=== PATIENT | female | born 1965 | race Caucasian/White ===

== ENCOUNTER 2023-11-03 09:04 | Outpatient (AMB) | payer BC, SELFPAY ==
--- NOTE | 2023-11-03 09:13 | MHC.PC.OV ---
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: No Accompanied by: Self / Same As Patient Allergies No Known Allergies Allergy (Verified 11/03/23 09:22) Tobacco use date assessed: 11/03/23 Dental Screening Dental Screen Date: 11/03/23 Did you have a dental visit in the last 12 months?: No Did you have a dental problem in the last 6 months where you did not have access to dental care?: No Was dental information given to patient?: Yes HPI HPI Comments History of Present Illness Details New patient Prior PCP:?[facility], [place], [place] Last office visit/CPE: About 5 months ago Acute issue(s): Anxiety -She is on propranolol 10 mg twice daily Asthma -She is on montelukast 10 mg at bedtime and an albuterol inhaler Migraines -History of taking Fioricet with codeine as needed. No current medication. Reports constant headache for the past 3 weeks. No relief with otc remedies. She recently missed 3 days of work d/t headache. She is currently experiencing right-sided headache with nausea. No visual disturbances. She experiences vomiting with severe headaches Vitamin D deficiency -She is on Vitamin D3 125 mcg daily Hypothyroidism r/t thyroidectomy/thyroid cancer -She is on Synthroid 125 mcg daily Arthritis (elbows, knees, ankles) -She she been taking Tylenol arthrits and diclofenac cream as needed Chronic low back pain with left-sided sciatica -Reports history of bulging disc of the lumbar spine. She takes OTC medications as needed controlled symptoms. She reports h/o hypercholesterolemia with last LDL of 400 about 5 months ago. She has been exercising about an hour daily and maintaining a healthy diet, avoiding diary and red meat. No current medications PMHx: Anxiety, asthma, migraines, vitamin-D deficiency, hypothyroidism, arthritis (elbows, knees, ankles), hypercholesterolemia, chronic low back pain with left-sided sciatica SurgHx: Hysterectomy, cervical disc replacement, adenoidectomy, sinus surgery, thyroidectomy FHx: Mom: HTN, heart diseases, pace maker, thyroid disease, CHF. Dad: colon polyps. MGM: skin cancer, thyroid disease, HTN SocHx: Former cigarette smoker (smoked 2 cigarettes daily x 4 years, quit 3.5 years ago).. Drinks alcohol occasionally. Edible cannabis occasionally PFSH Medical History (Updated 11/03/23 @ 10:14 by Bernard Ren CNP) Thyroid cancer delivery delivered Asthma Arthritis Joint pain Migraines Surgical History (Updated 11/03/23 @ 09:31 by JESSICA Shane) History of hysterectomy S/P cervical disc replacement H/O adenoidectomy H/O sinus surgery Family History (Updated 11/03/23 @ 09:32 by JESSICA Shane) Other Cancer of kidney Colon polyps Heart disease Hypertension Thyroid disorder Social History Housing: House Patient Tobacco Use Status: Former Tobacco user e-Cigarette/Vaping Use: Never Used service: No Current occupational status: employed 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 1. Little interest or pleasure in doing things: not at all 2. Feeling down, depressed, or hopeless: not at all 3. Trouble falling or staying asleep, or sleeping too much: nearly every day 4. Feeling tired or having little energy: nearly every day 5. Poor appetite or overeating: several days 6. Feeling bad about yourself - or that you are a failure or have let yourself or your family down: several days 7. Trouble concentrating on things, such as reading the newspaper or watching television: not at all 8. Moving or speaking so slowly that other people could have noticed. Or the opposite - being so fidgety or restless that you have been moving around a lot more than usual: not at all 9. Thoughts that you would be better off or of hurting yourself in some way: not at all Total score: 8 Depression Screening Interpretation: Positive (Denies h/o depression) Depression Screening Done: Yes 43941 - PHQ-9 Billing: Yes Source: Developed by Drs. Johnny Golden, Sherlyn Luis, Marc Lopez and colleagues, with an educational dustin from [employer]. Thrive Questionnaire Date Thrive assessed: 11/03/23 I am a: Patient What is your living situation today?: I have a steady place to live Within the past 12 months, did the food you bought not last and you didn't have the money to get more?: Never true Within the past 12 months, did you worry whether your food would run out before you got money to buy more?: Never true Do you have trouble paying for medicines?: No Do you have trouble getting transportation to medical appointments?: No Do you have trouble paying your heating and electricity bill?: No Do you have trouble taking care of your child, family member or friend?: No Do you have trouble with day-to-day activities such as bathing, preparing meals, shopping, managing finances, etc.?: No Are you currently unemployed and looking for a job?: No Are you interested in more education?: No Please select the resources that you would like help with: None Currently or been in a relationship where the following occur: no concerns reported THRIVE Score: 0 AUDIT C Alcohol Use Questionnaire (AUDIT-C) 1. How often do you have a drink containing alcohol?: Monthly or less 2. How many drinks containing alcohol do you have on a typical day when you are drinking?: 1 or 2 3. How often do you have six or more drinks on one occasion?: Never Total Score: 1 MARE-7 AMB Questionnaire MARE-7 Date MARE - 7 assessed: 11/03/23 Feeling nervous, anxious, or on edge: 1 = Several days Not being able to stop or control worryin = Several days Worrying too much about different things: 2 = More than half the days Trouble relaxin = More than half the days Being so restless that it is hard to sit still: 1 = Several days Becoming easily annoyed or irritable: 0 = Not at all Feeling afraid as if something awful might happen: 1 = Several days Total MARE-7 score (0-4 normal; 5-9 mild; 10-14 moderate; 15-21 severe): 8 Source: Developed by Drs. Johnny Golden, Sherlyn Luis, Marc Lopez and colleagues, with an educational dustin from [employer]. MARE-7 Assessment Billing MARE-7 Assessment Tool: MARE-7 Assessment 08491 ACT Questionnaire In the past 4 weeks, how much of the time did your asthma keep you from getting as much done at work, school or at home?: Some of the time During the past 4 weeks, how often have you had shortness of breath?: 3-6 times a week During the past 4 weeks, how often did your asthma symptoms wake you up at night or earlier than usual in the morning?: 4 or more nights a week During the past 4 weeks, how often have you had to use your rescue inhaler or nebulizer medication?: 2-3 times a week How would you rate your asthma control during the past 4 weeks?: Well controlled ACT Interpretation: Positive Score: 14 Review of Systems Const Details: Const Denies chills, Denies fatigue, Denies fever(s), Denies headache(s) and Denies weakness ENT Denies dizziness and Reports headache(s) Card Denies chest pain, Denies lightheadedness, Denies dyspnea and Denies other (Palpitations) Resp Denies cough, Denies dyspnea, Denies wheezing and Denies other ( shortness of breath) GI Denies abdominal pain, Denies melena, Denies hematochezia, Denies change in bowel habits, Denies dyspepsia and Denies nausea Denies hematuria and Denies dysuria Musc Denies abnormal gait, Denies myalgias, Reports arthralgias, Denies numbness and Denies tingling Skin/Breast Denies rash, Denies unusual bruising and Denies wounds Neuro Denies abnormal gait, Denies dizziness, Denies headache(s), Denies memory loss, Denies numbness, Denies Sensory deficit (Neuro), Denies tingling and Denies weakness Psych Reports anxiety, Denies depression, Denies memory loss Endo Denies cold intolerance, Denies fatigue, Denies heat intolerance, Denies polydipsia and Denies polyuria Aller/Immun Denies wheezing Physical exam (Primary Care) Vital Signs: Last Vital Signs Temp 97.7 F 11/03/23 09:14 Pulse 78 11/03/23 09:14 Resp 14 11/03/23 09:14 BP 154/88 H 11/03/23 09:14 Pulse Ox 99 11/03/23 09:14 Oxygen Delivery Method Room Air 11/03/23 09:14 BMI result Body Mass Index 29.6 Depression Screening Interpretation: Positive (Denies h/o depression) Currently or been in a relationship where the following occur: no concerns reported Const Other: General: no acute distress and well developed Nutritional Appearance: well nourished Orientation/consciousness: patient oriented x3 [facility] Head: Yes normocephalic and Yes atraumatic Eyes General: appearance normal, both eyes and all related structures Pupils: Equal, round and reactive pupils present EOM: EOMs intact bilaterally Resp Effort & Inspection: normal respiratory effort Auscultation: clear to auscultation bilaterally Cardio Rate: regular rate Rhythm: regular rhythm Heart sounds: S1 normal heart sound present, S2 normal heart sound present, no gallops, no murmurs and no rubs GI Palpation (GI): No Abdominal aortic bruit present, Soft to palpation, nontender, No hepatosplenomegaly present and No Rebound tenderness present Auscultation: normal bowel sounds General: Yes no CVA tenderness Back/Spine/Pelvis Back: no CVA tenderness Cervical Spine: cervical ROM normal and No Cervical spine tenderness Thoracic/Lumbar Spine: thoraco-lumbar ROM normal, No pain with thoraco-lumbar ROM, No thoracic spinal tenderness mild lumbar spinal tenderness Extrem General: Yes normal to inspection, No edema and No calf tenderness Skin General: warm and dry. Normal skin color. Normal skin turgor Lesions: no lesions Rashes: no rashes Trauma: no lacerations or abrasions Wounds: no wounds Nails: normal Neuro General: patient oriented x3, gait normal and no focal neuro deficit Cranial nerves: Yes Equal, round and reactive pupils present Cognition (Neuro): normal cognition Gait exam (Neuro): Normal gait present Sensory Exam: No Sensory deficit (Neuro) Psych Appearance: grossly normal Affect: normal affect Attitude: cooperative Thought process: Normal thought process present Assessment and Plan Assessment & Plan (1) Asthma: Code(s): J45.909 - Unspecified asthma, uncomplicated Plan: She notes that she ran out of her albuterol inhaler and has not been using in a long time ACT score is 14, indicates poorly control asthma Albuterol inhaler refill sent to her pharmacy. Advised to take as prescribed. Instructed on the risks, benefits, and potential adverse reactions of the medication Follow-up with new or worsening symptoms Verbalized understanding and agreed with the treatment plan (2) Migraines: Code(s): G43.909 - Migraine, unspecified, not intractable, without status migrainosus Plan: Constant headache for the past 3 weeks. No relief with otc remedies. She recently missed 3 days of work d/t headache. She is currently experiencing right-sided headache with nausea. No visual disturbances. She experiences vomiting with severe headaches. She reports history of elevated blood pressure readings with severe migraines. Sumatriptan ordered to target migraines. Zofran ordered for nausea and vomiting. Advised to take as prescribed. Instructed on the risks, benefits, and potential adverse reactions of the medications. Follow-up in 2 weeks or sooner with worsening or new symptoms. Verbalized understanding and agreed with the treatment plan. (3) Elevated blood pressure reading without diagnosis of hypertension: Code(s): R03.0 - Elevated blood-pressure reading, without diagnosis of hypertension Plan: Resting blood pressure is 154/88, above goal of less than 140/90. Heart rate is 78 Reports history of elevated blood pressure readings with severe migraines. Denies history of hypertension Likely attributed to current migraine symptoms. Will treat migraines with Fioricet and have patient return in 2 weeks. Will monitor blood pressure closely and possibly treat if migraines resolved and blood pressure still elevated Low-sodium diet encouraged Follow-up in 2 weeks or sooner with worsening or new symptoms Verbalized understanding and agreed with the treatment plan (4) Hypothyroidism: Code(s): E03.9 - Hypothyroidism, unspecified Plan: History of thyroidectomy/thyroid cancer On Synthroid 125 mcg daily No acute symptoms Continue current treatment regimen Will check TSH/T4 and make changes as needed Verbalized understanding and agreed with the treatment plan (5) Hypercholesterolemia: Code(s): E78.00 - Pure hypercholesterolemia, unspecified Plan: History hypercholesterolemia with last LDL of 400 about 5 months ago. She has been exercising about an hour daily and maintaining a healthy diet, avoiding diary and red meat instead of taking medications. No current medications Will check lipid panel and make changes as needed Advised to limit foods high in saturated fat and avoid foods high in trans fat Routine exercise encouraged Verbalized understanding and agreed with the plan (6) Arthritis: Code(s): M19.90 - Unspecified osteoarthritis, unspecified site Plan: Chronic arthritis to elbows, knees, ankles. She takes Tylenol Arthritis and diclofenac cream as needed with controlled symptoms No acute symptoms Continue current treatment regimen Follow-up with symptoms or concerns Verbalized understanding and agreed with the plan (7) Vitamin D deficiency: Code(s): E55.9 - Vitamin D deficiency, unspecified Plan: Continue to take cholecalciferol 125 mcg daily Will check vitamin-D level and make changes as needed Verbalized understanding and agreed with the plan (8) Chronic low back pain with left-sided sciatica: Code(s): M54.42 - Lumbago with sciatica, left side; G89.29 - Other chronic pain Plan: History of bulging discs of the lumbar spine. She takes OTC medications as needed Mild lumbar spine tenderness to palpation No acute symptoms Continue current treatment regimen Follow-up with symptoms or concerns Verbalized understanding and agreed with the plan (9) Anxiety: Code(s): F41.9 - Anxiety disorder, unspecified Plan: PHQ-9 and MARE-7 scores revealed moderate depression and anxiety Continue to take propranolol as prescribed Routine exercise encouraged Return with worsening or new symptoms Verbalized understanding and agreed with the treatment plan (10) Laboratory tests ordered as part of a complete physical exam (CPE): Code(s): Z00.00 - Encounter for general adult medical examination without abnormal findings Plan: Fasting labs ordered in preparation of a complete physical exam. Advised to fast for at least 10 hours before getting labs drawn. May drink water Verbalized understanding and agreed with treatment plan. Orders: Orders Complete Blood Count Auto Diff Today Z00.00 - Encounter for general adult medical examination without abnormal findings Comprehensive [place]. Panel Fast Today Z00.00 - Encounter for general adult medical examination without abnormal findings Lipid Panel Today Z00.00 - Encounter for general adult medical examination without abnormal findings TSH reflex Free T4 Today Z00.00 - Encounter for general adult medical examination without abnormal findings UA CC w/rflx Micro + Cult Today Z00.00 - Encounter for general adult medical examination without abnormal findings Microalbumin, Random (w Creat) Today Z00.00 - Encounter for general adult medical examination without abnormal findings Vitamin D 25-OH Total Today E55.9 - Vitamin D deficiency, unspecified Medications: New sumatriptan succinate take 1 tab at onset of headache; if no relief may repeat 1 tab after at least 2 hrs; max = 4 tabs/24 hr PO 20 tabs 0RF ondansetron 4 mg PO Q8H PRN 10 tabs 0RF nausea and vomiting albuterol sulfate 90 mcg/actuation (Proventil HFA) 2 puffs inhalation Q6H PRN 8.5 grams 3RF shortness of breath or wheezing Coding Level of Care Code New Pt Level 4 (85457) Complex EM visit Add On G2211 Diagnoses Asthma J45.909 Migraines G43.909 Elevated blood pressure reading without diagnosis of hypertension R03.0 Hypothyroidism E03.9 Hypercholesterolemia E78.00 Arthritis M19.90 Vitamin D deficiency E55.9 Chronic low back pain with left-sided sciatica M54.42; G89.29 Anxiety F41.9 Laboratory tests ordered as part of a complete physical exam (CPE) Z00.00 Additional Codes MARE-7 Assessment Billing - MARE-7 Assessment Tool: MARE-7 Assessment 06697 ([id number])
[2023-11-03 09:14] VITALS: BP 154/88; PULSE 78; RESP 14; TEMP 36.5; O2SAT 99; BMI 29.6
== END 2023-11-03 10:13 | disposition home or self-care (01) ==
PROVIDERS: Visit Provider Nurse Practitioner Family
DX: J45.909 Unspecified asthma, uncomplicated (principal); R03.0 Elevated blood-pressure reading, without diagnosis of hypertension; G43.909 Migraine, unspecified, not intractable, without status migrainosus; F41.9 Anxiety disorder, unspecified; E03.9 Hypothyroidism, unspecified; E78.00 Pure hypercholesterolemia, unspecified; M19.90 Unspecified osteoarthritis, unspecified site; E55.9 Vitamin D deficiency, unspecified; M54.42 Lumbago with sciatica, left side; G89.29 Other chronic pain
CPT/HCPCS: 96127; 99204

== ENCOUNTER 2023-11-24 11:28 | Outpatient (AMB) | payer BC, SELFPAY ==
--- NOTE | 2023-11-24 11:41 | A.OFFPC_ITS ---
Vital Signs 11/24/23 11:48 11/24/23 12:03 Weight 160 lb 8 oz BP 146/78 H 144/90 H Blood Pressure Location Rt brachial Lt brachial Position Sitting Sitting Respiration 16 Pulse 85 Pulse Source Pulse Oximeter Temp 97.5 F Temp Source Temporal Artery Scan Pulse Oximetry (%) 97 Oxygen Delivery Method Room Air Intake Visit Reasons: 2 wks elevated BP, migraines Intake Note: patient here for follow up on blood pressure. 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 Is last menstrual period known: No Post menopausal: No Patient : No Allergies No Known Allergies Allergy (Verified 11/24/23 12:00) Medication List - Last Reconciled 11/24/23 by Bernadr Ren CNP albuterol sulfate 90 mcg/actuation (Proventil HFA) 2 puffs inhalation Q6H PRN cholecalciferol (vitamin D3) 125 mcg PO DAILY cod liver oil 1 cap PO DAILY epinephrine (EpiPen) 0.3 mg IM Q4H PRN levothyroxine (Synthroid) 125 mcg PO DAILY montelukast 10 mg PO BEDTIME ondansetron 4 mg PO Q8H PRN propranolol 10 mg PO BID sumatriptan succinate take 1 tab at onset of headache; if no relief may repeat 1 tab after at least 2 hrs; max = 4 tabs/24 hr PO Tobacco use date assessed: 11/03/23 Dental Screening Dental Screen Date: 11/03/23 HPI HPI Comments History of Present Illness Details 58-year-old female presents for elevated blood pressure and migraines She admits to taking her medications as prescribed without adverse reactions She notes that she continues to experience headaches daily for the past 5 weeks. She reports associated dizziness, nausea, and photophobia, and photophobia. Sumatriptan has been improving her symptoms. She was followed by Neurology She notes that she checks her blood pressure daily average between 116-123/70-80. She reports history of elevated blood pressure readings during a medical appointment She notes that she is allergic to bee and several environmental allergens [facility] Medical History (Updated 11/24/23 @ 12:15 by Bernard Ren CNP) Thyroid cancer delivery delivered Asthma Arthritis Joint pain Migraines Surgical History (Updated 11/03/23 @ 09:31 by JESSICA Shane) History of hysterectomy S/P cervical disc replacement H/O adenoidectomy H/O sinus surgery Family History (Updated 11/03/23 @ 09:32 by Lay Gordillo [facility]) Other Cancer of kidney Colon polyps Heart disease Hypertension Thyroid disorder Social History Housing: House Patient Tobacco Use Status: Former Tobacco user e-Cigarette/Vaping Use: Never Used service: No Current occupational status: employed 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 1. Little interest or pleasure in doing things: not at all 2. Feeling down, depressed, or hopeless: not at all 3. Trouble falling or staying asleep, or sleeping too much: nearly every day 4. Feeling tired or having little energy: nearly every day 5. Poor appetite or overeating: not at all 6. Feeling bad about yourself - or that you are a failure or have let yourself or your family down: not at all 7. Trouble concentrating on things, such as reading the newspaper or watching television: not at all 8. Moving or speaking so slowly that other people could have noticed. Or the opposite - being so fidgety or restless that you have been moving around a lot more than usual: not at all 9. Thoughts that you would be better off or of hurting yourself in some way: not at all Total score: 6 Depression Screening Done: Yes 82722 - PHQ-9 Billing: Yes Source: Developed by Drs. Johnny Golden, Sherlyn Luis, Marc Lopez and colleagues, with an educational dustin from [employer]. Thrive Questionnaire Date Thrive assessed: 11/03/23 AUDIT C Alcohol Use Questionnaire (AUDIT-C) 1. How often do you have a drink containing alcohol?: Monthly or less 2. How many drinks containing alcohol do you have on a typical day when you are drinking?: 1 or 2 3. How often do you have six or more drinks on one occasion?: Never Total Score: 1 MARE-7 AMB Questionnaire MARE-7 Date MARE - 7 assessed: 11/24/23 Feeling nervous, anxious, or on edge: 2 = More than half the days Not being able to stop or control worryin = Not at all Worrying too much about different things: 1 = Several days Trouble relaxin = Not at all Being so restless that it is hard to sit still: 1 = Several days Becoming easily annoyed or irritable: 0 = Not at all Feeling afraid as if something awful might happen: 0 = Not at all Total MARE-7 score (0-4 normal; 5-9 mild; 10-14 moderate; 15-21 severe): 4 Source: Developed by Drs. Johnny Golden, Sherlyn Luis, Marc Lopez and colleagues, with an educational dustin from [employer]. MARE-7 Assessment Billing MARE-7 Assessment Tool: MARE-7 Assessment 70497 ACT Questionnaire In the past 4 weeks, how much of the time did your asthma keep you from getting as much done at work, school or at home?: Most of the time During the past 4 weeks, how often have you had shortness of breath?: More than once a day During the past 4 weeks, how often did your asthma symptoms wake you up at night or earlier than usual in the morning?: 2-3 nights a week During the past 4 weeks, how often have you had to use your rescue inhaler or nebulizer medication?: More than 3 times per day How would you rate your asthma control during the past 4 weeks?: Somewhat controlled Score: 9 Review of Systems Const Details: Const Denies chills, Denies fatigue, Denies fever(s), Denies headache(s) and Denies weakness ENT Denies dizziness and Denies headache(s) Card Denies chest pain, Denies lightheadedness, Denies dyspnea and Denies other (Palpitations) Resp Denies cough, Denies dyspnea, Denies wheezing and Denies other ( shortness of breath) GI Denies abdominal pain, Denies melena, Denies hematochezia, Denies change in bowel habits, Denies dyspepsia and Denies nausea Denies hematuria and Denies dysuria Musc Denies abnormal gait, Denies myalgias, Denies arthralgias, Denies numbness and Denies tingling Skin/Breast Denies rash, Denies unusual bruising and Denies wounds Neuro Denies abnormal gait, Denies dizziness, Denies headache(s), Denies memory loss, Denies numbness, Denies Sensory deficit (Neuro), Denies tingling and Denies weakness Psych Denies anxiety, Denies depression, Denies memory loss Endo Denies cold intolerance, Denies fatigue, Denies heat intolerance, Denies polydipsia and Denies polyuria Aller/Immun Denies wheezing Physical exam (Primary Care) Vital Signs: Last Vital Signs Temp 97.5 F 11/24/23 11:48 Pulse 85 11/24/23 11:48 Resp 16 11/24/23 11:48 BP 146/78 H 11/24/23 11:48 Pulse Ox 97 11/24/23 11:48 Oxygen Delivery Method Room Air 11/24/23 11:48 Tobacco/Smoking Status: Tobacco use Status Tobacco use date assessed 11/03/23 11/24/23 11:43 Patient Tobacco Use Status Former Tobacco user 11/24/23 11:43 Tobacco use type 11/03/23 10:11 e-Cigarette/Vaping Use Never Used 11/24/23 11:43 Thrive Assessment: Date of Thrive Assessment Date Thrive assessed 11/03/23 11/24/23 11:43 Const Other: General: no acute distress and well developed Nutritional Appearance: well nourished Orientation/consciousness: patient oriented x3 HENMT Head: Yes normocephalic and Yes atraumatic Eyes General: appearance normal, both eyes and all related structures Pupils: Equal, round and reactive pupils present EOM: EOMs intact bilaterally Resp Effort & Inspection: normal respiratory effort Auscultation: clear to auscultation bilaterally Cardio Rate: regular rate Rhythm: regular rhythm Heart sounds: S1 normal heart sound present, S2 normal heart sound present, no gallops, no murmurs and no rubs GI Palpation (GI): No Abdominal aortic bruit present, Soft to palpation, nontender, No hepatosplenomegaly present and No Rebound tenderness present Auscultation: normal bowel sounds General: Yes no CVA tenderness Back/Spine/Pelvis Back: no CVA tenderness Cervical Spine: cervical ROM normal and No Cervical spine tenderness Thoracic/Lumbar Spine: thoraco-lumbar ROM normal, No pain with thoraco-lumbar ROM, No thoracic spinal tenderness and No lumbar spinal tenderness Extrem General: Yes normal to inspection, No edema and No calf tenderness Skin General: warm and dry. Normal skin color. Normal skin turgor Neuro General: patient oriented x3, gait normal and no focal neuro deficit Cranial nerves: Yes Equal, round and reactive pupils present Cognition (Neuro): normal cognition Gait exam (Neuro): Normal gait present Sensory Exam: No Sensory deficit (Neuro) Psych Appearance: grossly normal Affect: normal affect Attitude: cooperative Thought process: Normal thought process present Assessment and Plan Assessment & Plan (1) Migraines: Code(s): G43.909 - Migraine, unspecified, not intractable, without status migrainosus Plan: She continues to experience headaches daily for the past 5 weeks. She notesd associated dizziness, nausea, and photophobia, and photophobia. Sumatriptan has been improving her symptoms Continue to take sumatriptan as prescribed Will start magnesium oxide 400 mg daily and riboflavin 400 mg daily Referred to [facility] Advised to return in 1 month for an extended physical exam or sooner with worsening or new symptoms Verbalized understanding and agreed with the treatment plan (2) Elevated blood pressure reading without diagnosis of hypertension: Code(s): R03.0 - Elevated blood-pressure reading, without diagnosis of hypertension Plan: Resting blood pressure is 144/90, above goal of less than 140/90 She notes controlled home blood pressure readings, between 116-123/70-80 She has history of elevated blood pressure readings during medical appointments Encouraged to continue to check her blood pressure daily, record readings, and bring to next appointment. Advised to immediately report blood pressure consistently above 140/90 Verbalized understanding and agreed with the treatment plan (3) Environmental allergies: Code(s): Z91.09 - Other allergy status, other than to drugs and biological substances Plan: Allergy to bee and several environmental allergens EpiPen ordered. 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 Follow-up with symptoms or concerns Verbalized understanding and agreed with the plan Orders: Referrals Neurology Referral G43.909 - Migraine, unspecified, not intractable, without status migrainosus Allergy & Immunology Referral Z91.09 - Other allergy status, other than to drugs and biological substances Medications: New epinephrine (EpiPen 2-Nnamdi) 0.3 mg (0.3 mL) IM Q4H PRN 2 ea 0RF anaphylaxis riboflavin (vitamin B2) 400 mg PO DAILY 30 days 30 tabs 3RF magnesium oxide 400 mg PO DAILY 30 days 30 tabs 3RF Coding Level of Care Code Est Pt Level 4 (89132) Complex EM visit Add On G2211 Diagnoses Migraines G43.909 Elevated blood pressure reading without diagnosis of hypertension R03.0 Environmental allergies Z91.09 Additional Codes MARE-7 Assessment Billing - MARE-7 Assessment Tool: MARE-7 Assessment [id number] ([id number])
[2023-11-24 11:48] VITALS: BP 146/78; PULSE 85; RESP 16; TEMP 36.4; O2SAT 97
[2023-11-24 12:03] VITALS: BP 144/90
== END 2023-11-24 13:07 | disposition home or self-care (01) ==
PROVIDERS: Visit Provider Nurse Practitioner Family
DX: G43.909 Migraine, unspecified, not intractable, without status migrainosus (principal); R03.0 Elevated blood-pressure reading, without diagnosis of hypertension; Z91.09 Other allergy status, other than to drugs and biological substances
CPT/HCPCS: 99214

== ENCOUNTER 2024-04-27 10:03 | Outpatient (REF) | payer BC, SELFPAY ==
[2024-04-27 15:01] LABS: Influenza A PCR NEGATIVE (Negative); Influenza B PCR NEGATIVE (Negative); Resp Syncy Virus RNA Qual PCR NEGATIVE (Negative); SARS COV2 PCR INHOUSE NEGATIVE (Negative)
== END 2024-04-27 10:04 | disposition home or self-care (01) ==
LOC: HO.LAB 10:03
PROVIDERS: PCP Nurse Practitioner Family; Visit Provider Nurse Practitioner Family
DX: Z00.01 Encounter for general adult medical examination with abnormal findings (principal); J06.9 Acute upper respiratory infection, unspecified; R19.8 Other specified symptoms and signs involving the digestive system and abdomen; G47.00 Insomnia, unspecified; M19.072 Primary osteoarthritis, left ankle and foot; M19.071 Primary osteoarthritis, right ankle and foot
CPT/HCPCS: 0241U; 96127; 96160

== ENCOUNTER 2024-04-27 10:03 | Outpatient (AMB) | payer BC, SELFPAY ==
--- NOTE | 2024-04-27 10:06 | MHC.PC.OV ---
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 Required: No Is last menstrual period known: No Post menopausal: No Patient : No Allergies No Known Allergies Allergy (Verified 04/27/24 10:21) Medication List - Last Reconciled 04/27/24 by Bernard Ren CNP albuterol sulfate 90 mcg/actuation (Proventil HFA) 2 puffs inhalation Q6H PRN epinephrine (EpiPen 2-Nnamdi) 0.3 mg (0.3 mL) IM Q4H PRN epinephrine (EpiPen) 0.3 mg IM Q4H PRN levothyroxine (Synthroid) 125 mcg PO DAILY magnesium oxide 400 mg PO DAILY 30 days montelukast 10 mg PO BEDTIME ondansetron 4 mg PO Q8H PRN propranolol 10 mg PO BID riboflavin (vitamin B2) 400 mg PO DAILY 30 days sumatriptan succinate take 1 tab at onset of headache; if no relief may repeat 1 tab after at least 2 hrs; max = 4 tabs/24 hr PO Tobacco use date assessed: 04/27/24 Dental Screening Dental Screen Date: 04/27/24 Did you have a dental visit in the last 12 months?: No Did you have a dental problem in the last 6 months where you did not have access to dental care?: No Was dental information given to patient?: Patient has dentist HPI HPI Comments History of Present Illness Details 58-year-old female presents for an extended physical exam. Acute issue(s) - Cold symptoms for the past 3 days. Associated head aches, watery eyes, and runny nose - Reports episodes of bloating, constipation, straining with defecation, diarrhea, abdominal pain; sometimes no bm x 1 months; ongoing x 2-3 years. Otc regimen, including laxative and fiber have not been effective. Past Medical History - Anxiety - Asthma - Migraines - Vitamin-D deficiency - Hypothyroidism - Arthritis (elbows, knees, ankles) - Hypercholesterolemia - Chronic low back pain with left-sided sciatica Health maintenance - Last eye exam was 2 years ago. Referred to Ophthalmology - Last pap smear test was 4 years ago. 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 Referred [place] [facility] [place]ology - Last mammogram was 4 years ago. Mammogram ordered - Last dental visit was 2 years ago. She has a dental appointment in late May 2024 - Last tetanus vaccine was more than 10 years ago; she will get the vaccine at her next appointment. - She has not been vaccinated for the flu this season; she will get the vaccine when she recover from her current respiratory vaccine - She had one shingles vaccine 2 years ago; encouraged to up-date her shingles immunization at a local pharmacy Social History - Former smoker. Does not vape. Drinks 1 glass of wine monthly. Consumes cannabis gummies occasionally for arthritis and sleep - He has not been making healthy dietary choices. She usually walks but but has not done so in the past one and half month d/t arthritis of both feet; takes Tylenol, apply heat/cold compresses, and massages. She does not sleep well; sleeps an average of 4 hours and has been going on for several years She has not gotten comprehensive lab work done as planned. [facility] Medical History (Updated 04/27/24 @ 11:10 by Bernard Ren CNP) Thyroid cancer delivery delivered Asthma Arthritis Joint pain Migraines Surgical History (Updated 11/03/23 @ 09:31 by JESSICA Shane) History of hysterectomy S/P cervical disc replacement H/O adenoidectomy H/O sinus surgery Family History (Updated 11/03/23 @ 09:32 by JESSICA Shane) Other Cancer of kidney Colon polyps Heart disease Hypertension Thyroid disorder Social History Housing: House Patient Tobacco Use Status: Former Tobacco user e-Cigarette/Vaping Use: Never Used Second Hand Smoke Exposure: No service: No Current occupational status: employed 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 1. Little interest or pleasure in doing things: not at all 2. Feeling down, depressed, or hopeless: not at all 3. Trouble falling or staying asleep, or sleeping too much: nearly every day 4. Feeling tired or having little energy: nearly every day 5. Poor appetite or overeating: several days 6. Feeling bad about yourself - or that you are a failure or have let yourself or your family down: not at all 7. Trouble concentrating on things, such as reading the newspaper or watching television: not at all 8. Moving or speaking so slowly that other people could have noticed. Or the opposite - being so fidgety or restless that you have been moving around a lot more than usual: not at all 9. Thoughts that you would be better off or of hurting yourself in some way: not at all Total score: 7 Depression Screening Interpretation: Positive Depression Screening Done: Yes 69701 - PHQ-9 Billing: Yes Source: Developed by Drs. Johnny Golden, Sherlyn Luis, Marc Lopez and colleagues, with an educational dustin from [employer]. Thrive Questionnaire Date Thrive assessed: 04/27/24 I am a: Patient What is your living situation today?: I have a steady place to live Within the past 12 months, did the food you bought not last and you didn't have the money to get more?: Never true Within the past 12 months, did you worry whether your food would run out before you got money to buy more?: Never true Do you have trouble paying for medicines?: No Do you have trouble getting transportation to medical appointments?: No Do you have trouble paying your heating and electricity bill?: No Do you have trouble taking care of your child, family member or friend?: No Do you have trouble with day-to-day activities such as bathing, preparing meals, shopping, managing finances, etc.?: No Are you currently unemployed and looking for a job?: No Are you interested in more education?: No Please select the resources that you would like help with: None Currently or been in a relationship where the following occur: No concerns reported THRIVE Score: 0 AUDIT C Alcohol Use Questionnaire (AUDIT-C) 1. How often do you have a drink containing alcohol?: Monthly or less 2. How many drinks containing alcohol do you have on a typical day when you are drinking?: 1 or 2 3. How often do you have six or more drinks on one occasion?: Never Total Score: 1 Score Reviewed/Action Taken: Yes MARE-7 AMB Questionnaire MARE-7 Date MARE - 7 assessed: 04/27/24 Feeling nervous, anxious, or on edge: 3 = Nearly every day Not being able to stop or control worryin = Several days Worrying too much about different things: 1 = Several days Trouble relaxin = Not at all Being so restless that it is hard to sit still: 0 = Not at all Becoming easily annoyed or irritable: 0 = Not at all Feeling afraid as if something awful might happen: 0 = Not at all Total MARE-7 score (0-4 normal; 5-9 mild; 10-14 moderate; 15-21 severe): 5 Source: Developed by Drs. Johnny Golden, Sherlyn Luis, Marc Lopez and colleagues, with an educational dustin from [employer]. MARE-7 Assessment Billing MARE-7 Assessment Tool: MARE-7 Assessment 50723 ACT Questionnaire In the past 4 weeks, how much of the time did your asthma keep you from getting as much done at work, school or at home?: Most of the time During the past 4 weeks, how often have you had shortness of breath?: More than once a day During the past 4 weeks, how often did your asthma symptoms wake you up at night or earlier than usual in the morning?: 2-3 nights a week During the past 4 weeks, how often have you had to use your rescue inhaler or nebulizer medication?: More than 3 times per day How would you rate your asthma control during the past 4 weeks?: Somewhat controlled ACT Interpretation: Positive Score: 9 Review of Systems Const Details: Denies chills, Denies fatigue, Denies fever(s), Reports headache(s) and Denies weakness HEENT Denies change in vision, Denies dizziness, Denies headache(s), Denies hearing loss, Denies nasal congestion, Denies sinus pain, Denies sinus pressure and Denies sore throat Card Denies chest pain, Denies lightheadedness, Denies dyspnea and Denies other (palpitations) Resp Denies cough, Denies dyspnea and Denies wheezing GI Reports as per HPI Denies hematuria and Denies dysuria Musc Reports as per HPI Skin/Breast Denies rash, Denies unusual bruising and Denies wounds Neuro Denies abnormal gait, Denies dizziness, Denies headache(s), Denies memory loss, Denies tingling, Denies numbness, Denies Sensory deficit (Neuro), Denies tingling and Denies weakness Psych Denies anxiety, Denies depression and Denies memory loss Endo Denies cold intolerance, Denies fatigue, Denies heat intolerance, Denies polydipsia and Denies polyuria Topher/Lymph Denies easy bleeding and Denies easy bruising Aller/Immun Denies wheezing Physical exam (Primary Care) Tobacco/Smoking Status: Tobacco use Status Tobacco use date assessed 11/03/23 04/27/24 10:09 Patient Tobacco Use Status Former Tobacco user 04/27/24 10:09 Tobacco use type 11/03/23 10:11 e-Cigarette/Vaping Use Never Used 04/27/24 10:09 Depression Screening Interpretation: Positive Thrive Assessment: Date of Thrive Assessment Date Thrive assessed 11/03/23 04/27/24 10:09 Currently or been in a relationship where the following occur: No concerns reported Const Other: General: no acute distress, well developed, alert and awake Nutritional Appearance: well nourished Orientation/consciousness: patient oriented x3 HENMT Head: Yes normocephalic and Yes atraumatic Ears: hearing grossly normal bilaterally and TM's normal bilaterally General nose exam: Normal external nose present and Normal nares present Mouth: Normal oral and palatal mucosa present and moist mucous membranes Teeth and gingiva: dentition normal Throat: Yes oropharynx normal Eyes Pupils: Equal, round and reactive pupils present and Pupil accommodation reflex normal EOM: EOMs intact bilaterally Neck Neck: Yes normal visual inspection, Yes no lymphadenopathy and Yes trachea midline Thyroid: Thyroid normal Carotids: no bruits Lymphatic: no lymphadenopathy noted Chest Chest palpation & inspection: normal inspection of the chest Resp Effort & Inspection: normal respiratory effort Auscultation: clear to auscultation bilaterally Cardio Rate: regular rate Rhythm: regular rhythm Heart sounds: S1 normal heart sound present, S2 normal heart sound present, no gallops, no murmurs and no rubs Bruits: no abdominal aortic bruits and no carotid bruits GI Palpation (GI): No Abdominal aortic bruit present, Soft to palpation, nontender, No hepatosplenomegaly present and No Rebound tenderness present Auscultation: normal bowel sounds General: Yes no CVA tenderness Back/Spine/Pelvis Back: no CVA tenderness Cervical Spine: cervical ROM normal and No Cervical spine tenderness Thoracic/Lumbar Spine: thoraco-lumbar ROM normal, No pain with thoraco-lumbar ROM, No thoracic spinal tenderness and No lumbar spinal tenderness Skin General: warm and dry. Normal skin color. Normal skin turgor Lesions: no lesions Rashes: no rashes Trauma: no lacerations or abrasions Wounds: no wounds Nails: normal Neuro General: patient oriented x3, gait normal and CN's II-XI intact bilaterally Cranial nerves: Yes Equal, round and reactive pupils present Cognition (Neuro): normal cognition Gait exam (Neuro): Normal gait present Motor exam (neuro): 5/5 motor strength present throughout Sensory Exam: No Sensory deficit (Neuro) Deep tendon reflexes (DTR's): Right patellar reflex intensity grade: 2+ and Left patellar reflex intensity grade: 2+ Extrem General: Yes normal to inspection, No edema and No calf tenderness Psych Appearance: grossly normal Affect: normal affect Attitude: cooperative Thought process: Normal thought process present Coding Level of Care Code Est Pt Level 4 (81242) Est Pt Prev Care 40-64y(64621) Diagnoses Normal physical examination, routine Z00.00 Viral upper respiratory illness J06.9 GI symptoms R19.8 Insomnia G47.00 Pap smear for cervical cancer screening Z12.4 Eye exam, routine Z01.00 Colon cancer screening Z12.11 Breast cancer screening by mammogram Z12.31 Arthritis M19.90 Additional Codes MARE-7 Assessment Billing - MARE-7 Assessment Tool: MARE-7 Assessment 08771 ([id number]) PHQ-9 - 18309 - PHQ-9 Billing: Yes ([id number]) Asthma Control Questionnaire - ACT Interpretation: Positive ([id number]) Assessment & Plan Assessment & Plan (1) Normal physical examination, routine: Code(s): Z00.00 - Encounter for general adult medical examination without abnormal findings Category: Medical Plan: No significant functional limitation ordered. Advised to get fasting lab work done and follow-up in 3 weeks for labs review and chronic disease management; return sooner with symptoms or concerns. Verbalized understanding and agreed with treatment plan. (2) Viral upper respiratory illness: Code(s): J06.9 - Acute upper respiratory infection, unspecified Category: Medical Plan: Likely viral illness though possibly allergies. No exam evidence of bacterial infection Viral illness There is no antibiotic medication for viruses.? They must run their course.? Most average 5-7 days but 7-10 days is not uncommon and up to 14 days is still possible.? A cough is often the last symptom to resolve and this can last for weeks in some cases. Rest Hydrate well -? Drink plenty of fluids.? Especially water. Tylenol or ibuprofen for muscle aches, headache, fever/discomfort Cannot rule out COVID-19/RSV/Flu infection Nasal swab acquired and will be sent to the lab Return for new or worsening symptoms Verbalized understanding and agreed with treatment plan. (3) GI symptoms: Code(s): R19.8 - Other specified symptoms and signs involving the digestive system and abdomen Category: Medical Plan: Episodes of bloating, constipation, straining with defecation, diarrhea, abdominal pain; sometimes no bm x 1 months; ongoing x 2-3 years. Otc regimen, including laxative and fiber have not been effective. Normal abdomen exam. Likely IBS. Referred to [facility] [place]. (4) Insomnia: Code(s): G47.00 - Insomnia, unspecified Category: Medical Plan: She has been experiencing poor sleep for several years. She sleeps an average of 4 hours. Instructed on sleep hygiene. Will trial trazodone 25 mg at bedtime for sleep. Follow-up with worsening or new signs and symptoms. Verbalized understanding and agreed with the plan. (5) Pap smear for cervical cancer screening: Code(s): Z12.4 - Encounter for screening for malignant neoplasm of cervix Category: Medical Plan: Last pap smear test was 4 years ago. Referred to [facility] cylinder checker for Pap smear test. (6) Eye exam, routine: Code(s): Z01.00 - Encounter for examination of eyes and vision without abnormal findings Category: Medical Plan: Last eye exam was 2 years ago. Referred to Ophthalmology for routine eye care. (7) Colon cancer screening: Code(s): Z12.11 - Encounter for screening for malignant neoplasm of colon Category: Medical Plan: Last colonoscopy was in 2007 with benign polyps. Referred to [facility] [place]ology for a colonoscopy. (8) Breast cancer screening by mammogram: Code(s): Z12.31 - Encounter for screening mammogram for malignant neoplasm of breast Category: Medical Plan: Last mammogram was 4 years ago. Mammogram ordered. (9) Arthritis: Code(s): M19.90 - Unspecified osteoarthritis, unspecified site Category: Medical Plan: Arthritis of feet. Referred to physical therapy. Continue to take Tylenol as needed. Continue Warm/cold compresses. Follow-up with worsening or new symptoms. Verbalized understanding and agreed with the plan. Orders: Orders MM screening mammo BI Today Z12.31 - Encounter for screening mammogram for malignant neoplasm of breast PT Evaluation and Treatment Today M19.90 - Unspecified osteoarthritis, unspecified site SARS-CoV2/FLU/RSV Today J06.9 - Acute upper respiratory infection, unspecified Referrals IRON CUTTER Referral Z12.4 - Encounter for screening for malignant neoplasm of cervix Gastroenterology Referral R19.8 - Other specified symptoms and signs involving the digestive system and abdomen, Z12.11 - Encounter for screening for malignant neoplasm of colon Ophthalmology Referral Z01.00 - Encounter for examination of eyes and vision without abnormal findings Medications: New trazodone 25 mg (1/2 x 50 mg) PO BEDTIME 30 days 15 tabs 3RF Refilled sumatriptan succinate take 1 tab at onset of headache; if no relief may repeat 1 tab after at least 2 hrs; max = 4 tabs/24 hr PO 20 tabs 0RF ondansetron 4 mg PO Q8H PRN 10 tabs 0RF nausea and vomiting
[2024-04-27 10:16] VITALS: BP 140/90; PULSE 90; RESP 16; TEMP 36.6; O2SAT 95; BMI 30.8
== END 2024-04-27 11:34 | disposition home or self-care (01) ==
PROVIDERS: PCP Nurse Practitioner Family; Visit Provider Nurse Practitioner Family
DX: Z00.00 Encounter for general adult medical examination without abnormal findings (principal); J06.9 Acute upper respiratory infection, unspecified; R19.8 Other specified symptoms and signs involving the digestive system and abdomen; G47.00 Insomnia, unspecified; Z12.11 Encounter for screening for malignant neoplasm of colon; Z12.31 Encounter for screening mammogram for malignant neoplasm of breast; M19.90 Unspecified osteoarthritis, unspecified site

== ENCOUNTER 2024-07-12 08:03 | Outpatient (AMB) | payer BC, SELFPAY ==
--- NOTE | 2024-07-12 08:10 | MHC.OFFWIV ---
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 Required: No Allergies No Known Allergies Allergy (Verified 07/12/24 08:10) Medication List - Last Reconciled 07/12/24 by Yaritza Alexandra, FAMILY DAY CARER- albuterol sulfate 90 mcg/actuation 2 puffs inhalation Q6H PRN epinephrine (EpiPen 2-Nnamdi) 0.3 mg (0.3 mL) IM Q4H PRN epinephrine (EpiPen) 0.3 mg IM Q4H PRN levothyroxine (Synthroid) 125 mcg PO DAILY magnesium oxide 400 mg PO DAILY 30 days montelukast 10 mg PO BEDTIME ondansetron 4 mg PO Q8H PRN propranolol 10 mg PO BID riboflavin (vitamin B2) 400 mg PO DAILY 30 days sumatriptan succinate take 1 tab at onset of headache; if no relief may repeat 1 tab after at least 2 hrs; max = 4 tabs/24 hr PO trazodone 25 mg (1/2 x 50 mg) PO BEDTIME 30 days Do you need a note to return to daycare/school/sports/work: Yes HPI HPI Comments History of Present Illness Details History - The patient is a 58-year-old female presenting with a dermatological rash and headache. - The rash first developed two weeks ago under the right armpit and is now widespread, involving the trunk and arms. It is characterized by severe pruritus, pain, and insomnia despite the use of fragrance-free products. - The patient has experienced accompanying severe headaches, interpreted as migraines, unresponsive to standard treatment. - No recent changes in medication, diet, lifestyle or exposure have been reported. - Previous treatment using prednisone is avoided due to significant side effects. Discussion Notes During the patient encounter, we discussed the differentials for the rash, including possible dermatological conditions and the less likely but considered possibility of shingles due to the bilateral rash spread and accompanying systemic symptoms. I recommended a referral to dermatology for potential biopsy and further diagnostic procedures. The patient was advised against the use of prednisone due to her previous adverse reactions. I proposed the use of a topical steroid, triamcinolone, for localized application. Additionally, famotidine was considered to possibly mitigate the immune-mediated itch. For her migraines, I increased the dose of sumatriptan provisionally, given her current headache severity unresponsive to her current dose. The plan also included initiating antiviral therapy with valcyclovir as a precautionary measure for shingles-like pathology due to systemic complaints. Assessment and Plan 1. Acute Generalized Dermatitis: We explored dermatological possibilities, considering nonspecific skin eruption and unlikely shingles, recommending dermatology involvement for diagnosis confirmation, initiated topical triamcinolone, and antiviral coverage with valsiclovir. 2. Migraine Headache: Considering the significant headache symptoms, the sumatriptan dosage was increased to improve her symptom management. Observations of any resolution or patterns necessitating further neurologic work-up remain a consideration. 3. Drug Intolerance to Prednisone: With explicit intolerance due to exacerbated migraine predisposition and mood changes from prior use, I instead administered topical treatments to address her current dermatitis. Patient Instructions - Apply triamcinolone topical cream to affected rash areas twice daily. - Begin antiviral valacyclovir as prescribed, taking it three times daily for seven days with food. - Initiate famotidine at bedtime to possibly alleviate pruritus. - Refrain from using prednisone due to previous adverse reactions and report any side effects from new medications. - Follow up with dermatology as referred for further evaluation and management. - Notify us immediately of any worsening or new symptoms. Consent During our discussion, I obtained informed consent to proceed with topical and antiviral treatment approaches and the referral to dermatology. I detailed the potential benefits, risks, and alternatives, ensuring the patient understood current recommendations and had the opportunity to ask questions. Consent was willingly given without coercion or reservations. Patient was informed and verbally consented to the use of an ambient scribe for clinic note documentation during this visit. [facility] Medical History (Updated 07/12/24 @ 08:52 by PEDRO Childs) Arthritis Asthma delivery delivered Joint pain Migraines Thyroid cancer Surgical History (Updated 11/03/23 @ 09:31 by Lay Gordillo [facility]) H/O adenoidectomy H/O sinus surgery History of hysterectomy S/P cervical disc replacement Family History (Updated 11/03/23 @ 09:32 by JESSICA Shane) Other Cancer of kidney Colon polyps Heart disease Hypertension Thyroid disorder Social History Housing: House Patient Tobacco Use Status: Former Tobacco user e-Cigarette/Vaping Use: Never Used Second Hand Smoke Exposure: No service: No Current occupational status: employed 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 [employer] Cognitive needs: No Hearing needs: No Vision needs: Yes Physical Exam Vital Signs: Last Vital Signs Temp 97.1 F 07/12/24 08:13 Pulse 93 07/12/24 08:13 Resp 13 07/12/24 08:13 BP 150/88 H 07/12/24 08:13 Pulse Ox 98 07/12/24 08:13 Oxygen Delivery Method Room Air 07/12/24 08:13 BMI result Body Mass Index 31.6 Const Other: Assessment & Plan Assessment & Plan (1) Skin eruption: Code(s): R21 - Rash and other nonspecific skin eruption (2) Migraine without aura: Code(s): G43.009 - Migraine without aura, not intractable, without status migrainosus Qualifiers: Status migrainosus presence: without status migrainosus Intractability: not intractable Qualified Code(s): G43.009 - Migraine without aura, not intractable, without status migrainosus Plan . Orders: Referrals Dermatology Referral R21 - Rash and other nonspecific skin eruption Medications: New valacyclovir 1,000 mg PO Q8H 7 days 21 tabs 0RF triamcinolone acetonide 0.1% 1 appl topical BID 453.6 grams 2RF famotidine 20 mg PO BEDTIME 90 tabs 0RF sumatriptan succinate take 1 tab at onset of headache; if no relief, may repeat 1 tab after at least 2 hrs; max = 2 tabs/24 hrs PO 9 tabs 0RF Discontinued sumatriptan succinate Discontinued Reason: Doctor's Order take 1 tab at onset of headache; if no relief may repeat 1 tab after at least 2 hrs; max = 4 tabs/24 hr PO 20 tabs 0RF Coding Level of Care Code Est Pt Level 4 (88016) Diagnoses Skin eruption R21 Migraine without aura and without status migrainosus, not intractable G43.009 Status migrainosus presence: without status migrainosus Intractability: not intractable
--- OUTSIDE RECORDS SUMMARY | 2024-07-12 08:11 | XMS_ITS | Encounter Summary ---
Author Organization [facility] Address [address] [place] [address] Care Team Providers Care Hoist Mechanic Name Role Phone Pcp, Latoya Primary Care Provider Barbara Lucero APRN Primary Care Provider Tommy Handy MD Unavailable Encounter Details Date Type Department Care Team (Late st Contact Info) Description 10/12/2015 Scanned Document [facility] [place] [address] [place] [address] Se Floyd MD 85 [facility] [address] [place] [address] Social History Tobacco Use Types Packs/Day Years Used Date Smoking Tobacco: Former Alcohol Use Standard Drinks/Week Comments Yes 1 (1 standard drink = 0.6 oz pur e alcohol) Sex and Gender Information Value Date Recorded Sex Assigned at Female 01/22/2023 1:48 PM EDT Gender Identity Not on file Sexual Orientation Heterosexual (straight) 01/22 1:48 PM EDT documented as of this encounter Plan of Treatment Not on file documented as of this encounter Visit Diagnoses Not on filedocumented in this encounter Care Teams Hoist Mechanic Relationship Specialty Start Date End Date Pcp, Latoya PCP - General General Medicine 10/04/15 10/17/15 Barbara Lobo APRN PCP - General 10/18/15 Tommy Handy MD [address] [address] 07/20/12 documented as of this encounter
--- OUTSIDE RECORDS SUMMARY | 2024-07-12 08:11 | XMS_ITS | Encounter Summary ---
Author Organization Formerly [facility] Address [address] [place] [address] Care Team Providers Care Memorandum Statement Clerk Name Role Phone Barbara Lobo Conner MITCHELL Primary Care Provider Tommy Handy MD Unavailable Encounter Details Date Type Department Care Team (Late st Contact Info) Description 01/22/2023 10:03 AM EDT Hospital Encounter [facility] [address] [place] [phone] Leidy Mendoza PA-C [address] [place] [address] Social History Tobacco Use Types Packs/Day Years [...] unremarkable. IMPRESSION: No acute osseous abnormality detected. Leidy Mendoza PA-C IMZackery DIAGNOSTIC IMAG ING ORDERABLES documented in this encounter Visit Diagnoses Not on filedocumented in this encounter Care Teams Memorandum Statement Clerk Relationship Specialty Start Date End Date LashellBarbara miller APRN PCP - General 10/18/15 Tommy Handy MD [address] [address] 07/20/12 documented as of this encounter
--- OUTSIDE RECORDS SUMMARY | 2024-07-12 08:11 | XMS_ITS | Encounter Summary ---
Author Organization [facility] Address [address] [place] [address] Care Team Providers Care Structural Engineer Name Role Phone Barbara Lobo Conner MITCHELL Primary Care Provider Tommy Handy MD Unavailable Encounter Details Date Type Department Care Team (Late st Contact Info) Description 08/06/2020 12:41 PM EDT Hospital Encounter [facility] [address] [place] [address] Mikey Corado MD [address] [place] [address] Social History Tobacco Use Types Packs/Day Years [...] KNEE 4+ VIEWS-RIGHT 08/06/2020 12:54 PM HISTORY: ??knee pain, please include sunrise COMPARISON(S): None. TECHNIQUE: [...] fracture or dislocation of the right knee. Lynnette MEAD DIAGNOSTIC IMAGI NG ORDERABLES documented in this encounter Visit Diagnoses Not on filedocumented in this encounter Care Teams Structural Engineer Relationship Specialty Start Date End Date Barbara Lobo APRN PCP - General 10/18/15 Tommy Handy MD [address] [address] 07/20/12 documented as of this encounter
--- OUTSIDE RECORDS SUMMARY | 2024-07-12 08:11 | XMS_ITS | Encounter Summary ---
Author Organization [facility] Address [address] [place] [address] Care Team Providers Care Security Officers And Guards Name Role Phone Tommy Handy MD Primary Care Provider [phone] Tamela Dela Cruz APRN Primary Care Provider Riri ray Pcp, No Primary Care Provider UnavailBarbara Lopez APRN Primary Care Provider [phone] Tommy Handy MD Unavailable Encounter Details Date Type Department Care Team (Late st Contact Info) Description 08/23/2015 Scanned Document [address] [address] Provider, Generic Social History Tobacco Use Types Packs/Day Years Used Date Smoking Tobacco: Never Alcohol Use Standard Drinks/Week Comments Yes 0 (1 standard drink = 0.6 oz pur e alcohol) Sex and Gender Information Value Date Recorded Sex Assigned at Female 01/22/2023 1:48 PM EDT Gender Identity Not on file Sexual Orientation Heterosexual (straight) 01/22 1:48 PM EDT documented as of this encounter Plan of Treatment Not on file documented as of this encounter Visit Diagnoses Not on filedocumented in this encounter Care Teams Security Officers And Guards Relationship Specialty Start Date End Date Tommy Handy MD [address] [place] [address] 4 [place] [address] PCP - General 07/20/12 09/24/15 Tamela Dela Cruz APRN [address] [address] PCP - General Internal Medicine 09/25/15 10/02/15 Pcp, No PCP - General General Medicine 10/04/15 10/17/15 Barbara Lobo APRN PCP - General 10/18/15 Tommy Handy MD [address] [address] 07/20/12 documented as of this encounter
--- OUTSIDE RECORDS SUMMARY | 2024-07-12 08:11 | XMS_ITS | Clinical Summary ---
Author Organization [facility] Address [address] [place] [address] Care Team Providers Care Lidding Machine Operator Name Role Phone Lashell Nuvia Prieto APRN Primary Care Provider [phone] Tommy Handy MD Allergies No known active allergies Medications Medication Sig Dispensed Refills Start Date End Date Status levothyroxine (SYNTHROID, LEVOTHROID) 125 MCG tablet Take 125 mcg by mouth daily on an empty stomach. Active propranolol (INDERAL) 10 MG tablet Take 10 mg by mouth. Active azelastine (ASTELIN) 0.1 % nasal spray 1 spray into each nostril 2 (two) times a day as needed. Active meloxicam (MOBIC) 15 MG tabletIndications:Liza nuvia osteoarthritis of left foot Take 1 tablet (15 mg total) by mouth daily. 14 tablet 01/22/2023 Active diclofenac (VOLTAREN) 1 % gelIndications:Primar y osteoarthritis of left foot Apply topically 4 (four) times a day. Use dosing card to measure dose. Apply to entire affect area. 100 g 01/22/2023 Active montelukast (SINGULAIR) 10 MG tablet Take 10 mg by mouth daily. 01/22/2023 Active spacer for MDI (Aerochamber/BreatheR ite/Ellipse) DeviceIndications:Whe ezing Use as instructed 1 each 01/31/2023 Active EPINEPHrine (EPIPEN 2-BG) 0.3 mg/0.3 mL IJ auto-injection Inject 0.3 mg into the shoulder, thigh, or buttocks once as needed for allergic reaction. Active albuterol (PROVENTIL HFA; VENTOLIN HFA) 108 (90 Base) MCG/ACT inhalerIndications:CO VID Inhale 2 puffs 4 times daily (every 6 hours) as needed for wheezing. 1 each 05/07/2023 Active benzonatate (TESSALON) 200 MG capsuleIndications:CO VID Take 1 capsule (200 mg total) by mouth 3 (three) times a day as needed for cough. 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 al region 09/25/2015 Family History Medical History Relation Name Comments Heart disease Maternal Grandfather Heart disease Mother Hypertension Mother Pacemaker Mother Heart disease Paternal Grandfather Heart disease Sister Hypertension Sister Kidney cancer Sister Relation Name Status Comments Maternal Grandfather Mother Paternal Grandfather Sister Social History Tobacco Use Types Packs/Day Years Used Date Smoking Tobacco: Former Cigarettes 0.3 10 Smokeless Tobacco: Never Tobacco Cessation:Counseling Given: Not Answered Alcohol Use Standard Drinks/Week Comments Yes 3 (1 standard drink = 0.6 oz pur e alcohol) Sex and Gender Information Value Date Recorded Sex Assigned at Female 01/22/2023 1:48 PM EDT Gender Identity Not on file Sexual Orientation Heterosexual (straight) 01/22 1:48 PM EDT Last Filed Vital Signs Vital Sign Reading Time Taken Comments Blood Pressure 130/69 01/31/2023 11:49 AM EDT Pulse 99 01/31/2023 11:49 AM EDT Temperature 36.8 ??C (98.2 ??F) 01/31/2023 11:49 AM E DT Respiratory Rate 16 01/31/2023 11:49 AM EDT Oxygen Saturation 96% 01/31/2023 11:49 AM EDT Inhaled Oxygen Concentration - - Weight 68 kg (150 lb) 05/07/2023 3:36 PM EST Height 154.9 cm (5' 1 ) 05/07/2023 3:36 PM EST Body Mass Index 28.34 05/07/2023 3:36 PM EST Plan of Treatment Health Maintenance Due Date Last Done Comments Hepatitis C Virus Screening 1965 HIV Screening 09/23/1980 DTaP/Tdap/Td Vaccines (1 - Tdap) 09/23/1986 Hepatitis B Vaccines (1 of 3 - 19+ 3-dose series) 09/23/1986 Pap Smear (Ages 21-65) 09/23/1988 Mammogram 2007 Colonoscopy 09/23/2012 Pneumococcal Vaccines 50+ (1 of 1 - PCV) 09/23/2017 Zoster (Shingles) Vaccine (1 of 2) 09/23/2017 Influenza Vaccine 12/11/2023 COVID-19 Vaccine (2023- season) 2024 05/22/2021, 09/30/2020, 09/02/2020, Additional history exists Pneumococcal Vaccine: Pediatric (0-5 Years) and At-Risk Patients (6 to 49 Years) Aged Out No longer eligible based on patient's age to complete this topic Medical Devices Implanted Type Area Medical Health Researcher Device Identifier Shelf Expiration Date Model / Serial / Lot 55 Mm Plate Medtronic # [id number] Implanted:Qty : 1 on 10/18/2015 by Se Floyd MD at [facility] Plate N/A: Spine Cervical [employer] MINIMALLY INVASIVE T [id number] / / Description:cervical Lordotic Sr Cortical Block [id number] Implanted:Qty : 1 on 10/18/2015 by Se Floyd MD at [facility] Spine N/A: Spine Cervical [employer] 07/25/2018 [id number] / [id number] / [id number] Lordotic Sr Cortical Block [id number] Implanted:Qty : 1 on 10/18/2015 by Se Floyd MD at [facility] Spine N/A: Spine Cervical [employer] 07/25/2018 [id number] / [id number] / [id number] Lordotic Sr Cortical Block [id number] Implanted:Qty : 1 on 10/18/2015 by Se Floyd MD at [facility] Spine N/A: Spine Cervical [employer] 06/21/2018 [id number] / [id number] / [id number] Graft Bone Grftn Dbm 1ml Putty Jar - [id number] Implanted:Qty : 1 on 10/18/2015 by Se Floyd MD at [facility] Tissue [employer] 03/29/2018 [id number] / [id number] / 3.5x15mm Vasd Screw Implanted:Qty : 1 on 10/18/2015 by Se Floyd MD at [facility] N/A: Spine Cervical [employer] MINIMALLY INVASIVE T [id number] / / Advance Directives * Full Code (Latest Code Status on File) Date Activated Date Inactivated Comments 10/18/2015 6:16 PM 10/20/2015 5:34 PM Care Teams Lidding Machine Operator Relationship Specialty Start Date End Date Nuvia Lobo APRN PCP - General 10/18/15 Tommy Handy MD [address] [place] [address] 4 [place] [address] 07/20/12
--- OUTSIDE RECORDS SUMMARY | 2024-07-12 08:11 | XMS_ITS | Encounter Summary ---
Author Organization [facility] Address [address] [place] [address] Care Team Providers Care Greenskeeper Head Name Role Phone Tommy Handy MD Primary Care Provider [phone] Tamela Dela Cruz APRN Primary Care Provider Riri ray Pcp, No Primary Care Provider UnavailBarbara Lopez APRN Primary Care Provider [phone] Tommy Handy MD Unavailable Encounter Details Date Type Department Care Team (Late st Contact Info) Description 05/29/2015 Scanned Document [address] [phone] Provider, Generic Social History Tobacco Use Types [...] Procedure Name Priority Date/Time Associated Diagnosis Comments XRAY EXTERNAL RESULT 05/29/2015 documented in this encounter Results * XRAY EXTERNAL RESULT (05/29/2015) Anatomical Region Laterality Modality Computed Radiogr aphy Narrative 06/23/2015 12:52 AM EST Ordered by an unspecified provider. Generic Provider IMG DIAGNOSTIC IMAGI NG ORDERABLES documented in this encounter Visit Diagnoses Not on filedocumented in this encounter Care Teams Greenskeeper Head Relationship Specialty Start Date End Date Tommy Handy MD [address] [place] [id number] PCP - General 07/20/12 09/24/15 Tamela Dela Cruz APRN [address] [place] [address] PCP - General Internal Medicine 09/25/15 10/02/15 Pcp, No PCP - General General Medicine 10/04/15 10/17/15 Barbara Lobo APRN PCP - General 10/18/15 Tommy Handy MD [address] [place] [address] 07/20/12 documented as of this encounter
--- OUTSIDE RECORDS SUMMARY | 2024-07-12 08:11 | XMS_ITS | Encounter Summary ---
Author Organization [facility] Address [address] [place] [address] Care Team Providers Care Freight Shipping Agent Name Role Phone DENY Avery Monika Primary Care Provider DENY Avery Monika Unavailable [phone] Encounter Details Date Type Department Care Team (Late st Contact Info) Description 06/21/2023 Orders Only [facility] [address] [place] [address] Sydney Avery PA [address] [place], [place] [phone] Medications Social History Tobacco Use Types Packs/Day Years Used Date Smoking Tobacco: Never Assessed Comments:Smoking Status:No c urrent tobacco use Comments Unknown Sex and Gender Information Value Date Recorded Sex Assigned at Not on file Legal Sex Female 4:31 PM EDT Gender Identity Not on file Sexual Orientation Not on file documented as of this encounter Plan of Treatment Not on file documented as of this encounter Goals Goal Patient Goal Type Associated Problems Recent Progress Patient-Stated? Author Blood Pressure < 140/90 Blood Pressure 138/74(2023 12:37 PM EST) No Jennie Martinez LVN LPN Note: Above is your goal for blood pressure control. You may be able to prevent, reduce or eliminate the medication required for your blood pressure by regular measurement of your blood pressure at home, since home readings are often more reliable than measurements at the doctor? s office. You can also improve your blood pressure by getting regular exercise, keeping a normal weight, reducing your sodium/salt intake to 2000 mg/day, reducing caffeine and by limiting your alcohol intake. Men should limit consumption to no more than 2 drinks per day (beer, wine, or mixed drinks) and women should limit to one drink per day. Follow the DASH diet, a diet low in fat, cholesterol, red meat, and sweets. It emphasizes fruits, vegetables, and low-fat dairy foods. The DASH diet also includes whole-grain products, fish, poultry, and nuts. documented as of this encounter Procedures Procedure Name Priority Date/Time Associated Diagnosis Comments CULTURE, URINE, ROUTINE Routine 06/21/2023 11:29 AM EST THYROID STIMULATING HORMONE (TSH) WITH FREE T4 REFLEX, SERUM Routine 06/21/2023 11:29 AM EST LIPID PANEL WITH REFLEX TO DIRECT LDL Routine 06/21/2023 11:29 AM EST COMPREHENSIVE METABOLIC PANEL WITH GFR Routine 06/21/2023 11:29 AM EST documented in this encounter Results * CULTURE, URINE, ROUTINE (06/21/2023 11:29 AM EST) Bacteria culture (Urine) SEE NOTE SARA COTTON Comment: ??CULTURE, URINE, ROUTINE ?Micro Number: ?[id number] ??Test Status: ? Final ??Specimen Source: ?? Urine ??Specimen Quality: ??Adequate ??Result: ?Less than 10,000 CFU/mL of single Gram positive ? organism isolated. No further testing will be ? performed. If clinically indicated, recollection ? using a method to minimize contamination, with ? prompt transfer to Urine Culture Transport Tube, ? is recommended. 06/21/2023 11:2 9 AM EST 06/21/2023 4:59 PM EST Narrative ORCHARD HARVEST - 06/23/2023 5:00 AM EST [facility] Testing performed at: [facility], [employer] [facility], [address] [place] [address], [id number], Building Trades Instructor: Valerie Denton M.D. [facility] Collection Date/Time: [id number] [facility] Results Received Date/Time: [id number] [facility] Reported Date/Time: [id number] [facility] Final Result Performing Organization Address [facility]/ZIP Co de Phone Number ORCHARD HARVEST [address] [place] [address], * (ABNORMAL) LIPID PANEL WITH REFLEX TO DIRECT LDL (06/21/2023 11:29 AM EST) Cholesterol 319(H) 0 - 199 mg/dL [facility] Triglyceride 318(H) 0 - 150 mg/dL [facility] VLDL Cholesterol 64(H) 5 - 40 mg/dL [facility] HDL Cholesterol 51 50 - 80 mg/dL [facility] LDL Cholesterol 204(H) 0 - 100 mg/dL [facility] Cholesterol Non-HDL 268(H) 0 - 130 mg/dl [facility] CHOL/HDL Ratio 6.[address] [facility]VEST 06/21/2023 11:2 9 AM EST 06/21/2023 4:59 PM EST Narrative ORCHARD HARVEST - 06/21/2023 5:33 PM EST FASTING: YES Testing Performed at: [facility], [address] [place] [address], [place] [address], , Building Trades Instructor: Edith Graves MD CL#[id number] DEN[facility] Final Result Performing Organization Address [facility]/ZIP Co de Phone Number ORCHARD HARVEST [address] [place] [address], * THYROID STIMULATING HORMONE (TSH) WITH FREE T4 REFLEX, SERUM (06/21/2023 11:29 AM EST) TSH (Thyrotropin) 3.34 0.50 - 4.80 uIU/ml [facility] 06/21/2023 11:2 9 AM EST 06/21/2023 4:59 PM EST Narrative ORCHARD HARVEST - 06/21/2023 5:33 PM EST Testing Performed at: [facility], [address] [facility], [place] [address], , Building Trades Instructor: Edith Graves MD CL#[id number] [facility] Final Result [facility] [address] [facility] [place] [place] [address], * (ABNORMAL) COMPREHENSIVE METABOLIC PANEL WITH GFR (06/21/2023 11:29 AM EST) Glucose 110(H) 65 - 99 mg/dL [facility] Comment:Fasting Reference In terval Urea Nitrogen Blood (BUN) 15 6 - 20 mg/dL [facility] Creatinine 0.6 0.4 - 1.1 mg/dL [facility] GFR 105 >=60 [facility] Comment: Units of measure for estimated Glomular Filtration Rate: ??mL/min/1.73m2. eGFR calculation is only valid for adults 18-85 years of age. Stages of Chronic Kidney Disease Stage ? GFR ??3 ? 30-59 ??4 ? 15-29 ??5 ? <15 Sodium 142 133 - 145 mmol/L [facility] Potassium 4.1 3.3 - 5.3 mmol/L [facility] Chloride 103 96 - 108 mmol/L [facility] Bicarbonate 25 22 - 32 mmol/L [facility] Anion gap 3 14 [facility] Calcium 10.0 8.6 - 10.5 mg/dL [facility] Protein Total (Serum) 7.5 6.2 - 8.2 g/dL [facility] Albumin 5.0 3.5 - 5.2 g/dl [facility] Alkaline phosphatase 82 35 - 130 U/L [facility] AST (SGOT) 20 4 - 32 U/L [facility] ALT (SGPT) 25 4 - 33 U/L [facility] Bilirubin Total 0.4 0.1 - 1.0 mg/dL [facility] Globulin 2.5 1.4 - 4.8 g/dl [facility] Albumin/Globulin 2 1 - 3 [facility]C [facility]ST Osmolality 276 253 - 285 mOsm/kg [facility] BUN/Creatinine Ratio 25 6 - 25 [facility] 06/21/2023 11:2 9 AM EST 06/21/2023 4:59 PM EST Narrative ORCHARD HARVEST - 06/21/2023 5:33 PM EST FASTING: YES Testing Performed at: [facility], [address] [place] [address], , Building Trades Instructor: Edith Graves MD CL#[id number] [facility] Final Result [facility] [address] [place] [address], documented in this encounter Visit Diagnoses Diagnosis Urgency of urination Abnormal results of liver function studies Nonspecific abnormal results of liver function study Hypothyroidism, unspecified Hyperlipidemia, unspecified documented in this encounter Care Teams Freight Shipping Agent Relationship Specialty Start Date End Date Sydney Avery PA [address] [place] [address] PCP - General 12/16/22 Sydney Avery PA [address] [place] [address] PCP - Backup PCP Family Medicine 06/11/23 documented as of this encounter
--- OUTSIDE RECORDS SUMMARY | 2024-07-12 08:11 | XMS_ITS | Encounter Summary ---
Author Organization [facility] Address [address] [place], [place] [address] Care Team Providers Care Insurance Underwriter Sales Name Role Phone Tamela Dela Cruz APRN Primary Care Provider Riri ray Pcp, No Primary Care Provider Barbara Lucero APRN Primary Care Provider Tommy Handy MD Unavailable Encounter Details Date Type Department Care Team (Late st Contact Info) Description 09/27/2015 Scanned Document [address] [address] Provider, Generic Social History Tobacco Use Types [...] on filedocumented in this encounter Care Teams Insurance Underwriter Sales Relationship Specialty Start Date End Date Tamela Dela Cruz APRN PCP - General Internal Medicine 09/25/15 10/02/15 Pcp, No PCP - General General Medicine 10/04/15 10/17/15 Barbara Lobo APRN PCP - General 10/18/15 Tommy Handy MD [address] [place] [address] 07/20/12 documented as of this encounter
--- OUTSIDE RECORDS SUMMARY | 2024-07-12 08:11 | XMS_ITS | Encounter Summary ---
Author Organization [facility] Address [address] [place] [address] Care Team Providers Care Mechanic Welder Name Role Phone Tamela Dela Cruz APRN Primary Care Provider Riri ray Pcp, No Primary Care Provider Barbara Lucero APRN Primary Care Provider [phone] Tommy Handy MD Unavailable Encounter Details Date Type Department Care Team (Late st Contact Info) Description 10/02/2015 Prep for Surgery [facility] [place] [address] [place] [address] Se Floyd MD [address] [id number] Social History Tobacco Use Types Packs/Day Years [...] on filedocumented in this encounter Care Teams Mechanic Welder Relationship Specialty Start Date End Date Tamela Dela Cruz APRN PCP - General Internal Medicine 09/25/15 10/02/15 Pcp, No PCP - General General Medicine 10/04/15 10/17/15 Barbara Lobo APRN PCP - General 10/18/15 Tommy Handy MD [address] [place] [address] 07/20/12 documented as of this encounter
--- OUTSIDE RECORDS SUMMARY | 2024-07-12 08:11 | XMS_ITS | Clinical Summary ---
Author Organization [facility] Address [address] [place] [address] Care Team Providers Care Outside Plant Technician Name Role Phone DENY Avery Monika Primary Care Provider [phone] DENY Avery Monika Unavailable [phone] Allergies Active Allergy Reactions Criticality Noted Date Comments Environmental 08/20/2018 Mold 03/06/2020 Nuts 08/20/2018 Paroxetine 11/09/2020 Reactions: Headache Medications Albuterol (PROVENTIL HFA;VENTOLIN HFA) 90 mcg/ACT inhaler INHALE 1 PUFF EVERY 4 HOURS NEEDED. 1 2 06/29/19 19 Active EPINEPHrine (EPIPEN) 0.3 MG/0.3ML injection syringe INJECT 0.3ML IN THE MUSCLE DIRECTED 1 0 08/21/19 19 Active Riboflavin 400 MG Tab TK 1 T PO D 0 19 Active Azelastine HCl 137 MCG/SPRAY Solution USE ONE SPRAY EACH NOSTRIL EVERY 12 HOURS NEEDED FOR CONGESTION 1 5 03/12/20 22 Active Diclofenac Sodium 1 % Gel APPLY SPARINGLY TO AFFECTED AREA(S) ONCE DAILY 0 05/29/19 24 Active Acetaminophen (8 Hour Arthritis Pain) 650 MG 8 hr tablet TAKE 1 TABLET 3-4 TIMES DAILY. 0 05/29/19 24 Active Meloxicam (MOBIC) 15 MG tablet TAKE 1 TABLET BY MOUTH EVERY DAY NEEDED 30 1 05/29/19 24 Active Synthroid 125 MCG tabletIndications:Other specified hypothyroidism TAKE 1 TABLET BY MOUTH EVERY DAY PLEASE COMPLETE BLOOD WORK FOR FURTHER REFILLS 90 tablet 1 06/24/19 24 Active Atorvastatin Calcium (LIPITOR) 10 MG tabletIndications:Pure hypercholesterolemia TAKE 1 TABLET BY MOUTH EVERYDAY AT BEDTIME 90 tablet 3 06/24/19 24 Active Levothyroxine Sodium (SYNTHROID, LEVOTHROID) 125 MCG tablet Take one tablet (125 mcg total) by mouth 1 (one) time each day. 90 tablet 3 06/24/19 24 Active Propranolol HCl (INDERAL) 10 MG tablet Take one tablet (10 mg total) by mouth 2 (two) times a day. 180 tablet 3 10/09/19 24 Active montelukast (SINGULAIR) 10 MG tablet TAKE 1 TABLET BY MOUTH EVERY DAY 90 tablet 03/15/20 24 Active Active Problems Problem Noted Date Diagnosed Date Urinary urgency 05/29/2023 Abnormal liver function 05/29/2023 Arthritis 05/29/2023 Medial epicondylitis of right elbow 05/29/2023 Nasal congestion 10/12/2021 Earache 10/12/2021 Neck pain 09/18/2021 Fracture of cervical vertebra, C1 09/18/2021 Cervical strain 07/31/2021 Allergic conjunctivitis 05/18/2021 Lumbar disc narrowing 11/16/2020 Screen for colon cancer 11/09/2020 Depression with anxiety 04/17/2020 Anxiety disorder 10/14/2019 Back pain 12/10/2018 Bee sting allergy 08/20/2018 [place] allergy 08/20/2018 Hyperlipidemia 06/09/2018 Chronic sinusitis 06/05/2018 Allergic rhinitis 06/05/2018 Elevated liver function tests 05/21/2018 Benign essential hypertension 04/24/2018 Overview (06/16/2023): Transitioned From: Elevated blood pressure reading without diagnosis of hypertension Hypothyroidism 04/24/2018 Migraines 04/24/2018 Overview (06/16/2023): Transitioned From: Headache Encounters Date Type Department Care Team Description 05/15/[address] [id number] Sydney Avery PA E-prescribing Refill Request from Last 3 Months Immunizations Name Administration Dates Next Due COVID-19, mRNA (Moderna Pre Fall 2022) Monovalent, 100 mcg/0.5 ml or 50 mcg/0.25 ml dose 09/02/2020,07/21/2020 Zoster (Shingrix) 11/09/2020 Family History Medical History Relation Name Comments Cancer - Colon Other colon cancer : Other Relation Name Status Comments Other Social History Tobacco Use Types Packs/Day Years Used Date Smoking Tobacco: Never Assessed Comments:Smoking Status:No c urrent tobacco use Comments Unknown Sex and Gender Information Value Date Recorded Sex Assigned at Not on file Legal Sex Female 4:31 PM EDT Gender Identity Not on file Sexual Orientation Not on file Last Filed Vital Signs Vital Sign Reading Time Taken Comments Blood Pressure 138/74 05/29/2023 12:37 PM EST Pulse 90 05/29/2023 12:37 PM EST Temperature 36.4 ??C (97.6 ??F) 05/29/2023 1 2:37 PM EST Respiratory Rate 18 05/29/2023 12:3 7 PM EST Oxygen Saturation 98% 05/29/2023 12: 37 PM EST Inhaled Oxygen Concentration - - Weight 74.8 kg (164 lb 15.9 oz) 024 12:37 PM EST Height 167.6 cm (5' 6 ) 04/09/2021 11:2 1 AM EST Body Mass Index 26.63 04/09/2021 11:21 AM EST Plan of Treatment Health Maintenance Due Date Last Done Comments Pap Smear 1983 DTaP/Tdap/Td (1 - Tdap) 09/23/1985 Hep B (1 of 3 - 19+ 3-dose series) 09/23/1986 Colon Cancer Screening 09/23/2012 Pneumococcal 50+ years (1 of 1 - PCV) 09/23/2017 Mammogram/Breast Imaging 09/03/2018 09/03/2017, 08/11 Zoster (Shingrix) (2 of 2) 01/04/2021 11/09/2020 COVID-19 Vaccine (2023- season) 2024 09/02/2020, 07/21/2020 Influenza (#1) 2024 Hepatitis C Screening Completed 06/05/2018 Physical Discontinued 11/09/2020 Chest Imaging Discontinued 04/09/2021, 05/15/2018 LDL Cholesterol Discontinued 06/21/2023, 01/10, 11/11/2020, Additional history exists HPV Vaccine Aged Out No longer eligi ble based on patient's age to complete this topic Hep A Aged Out No longer eligi ble based on patient's age to complete this topic Hib Aged Out No longer eligi ble based on patient's age to complete this topic Meningococcal ACWY Aged Out No longer eligible based on patient's age to complete this topic Goals Goal Patient Goal Type Associated Problems Recent Progress Patient-Stated? Author Blood Pressure < 140/90 Blood Pressure 138/74(2023 12:37 PM EST) No Jennie Martinez, CPO Note: Above is your goal for blood [...] includes whole-grain products, fish, poultry, and nuts. Procedures Procedure Name Priority Date/Time Associated Diagnosis Comments LIPID PANEL WITH REFLEX TO DIRECT LDL Routine 06/21/2023 11:29 AM EST XRAY CHEST, 2 VIEWS, PA & LATERAL FC Routine 04/09/2021 11:15 AM EST HEPATITIS PANEL, ACUTE W/REFLEX Routine 06/05/2018 7:48 AM EST MAMMOGRAM SCREENING , BILATERAL FC Routine 09/03/2017 9:28 AM EDT from Last 3 Months or Most Recently Relevant to Health Maintenance Results * (ABNORMAL) LIPID PANEL WITH REFLEX TO [...] PM EST FASTING: YES Testing Performed at: [facility], [address] [place] [address], [place] [address], , Power Washer: Edith Graves MD CL#[id number] [facility] Final Result Performing Organization Address City/State/[facility] Co de Phone Number ORCHARD HARVEST [address] [place] [address], * XRAY CHEST, 2 VIEWS, PA & LATERAL FC (04/09/2021 11:15 AM EST) [facility] IMAGING STUDY Exam: X-ray chest 2 views No infiltrates or pleural effusions. ??No failure or ??fluid overload. ??Operative change lower cervical spine. ??Thoracic spine appears intact. ??Heart size is normal. IMPRESSION: No acute findings Electronically signed by Ty Nelson MD [facility] Anatomical Region Laterality Modality CHEST Radiographic Mary ging 04/09/2021 11:1 5 AM EST Chidi Davis MD IMG XRAY NO CONTRAST ORDERABLE S Final Result * HEPATITIS PANEL, ACUTE W/REFLEX (06/05/2018 7:48 AM EST) [facility] HEPATITIS A IGM NON-REACT SHANIA NON-REACT SHANIA PHCT CONVERSIONS HEPATITIS B CORE ANTIBODY (IGM) NON-REACT SHANIA NON-REACT SHANIA PHCT CONVERSIONS Comment:IgM antibodies to HB c were not detected; does not exclude the possiblity of exposure to HBV. HEPATITIS B SURFACE ANTIGEN NON-REACT SHANIA NON-REACT SHANIA PHCT CONVERSIONS Hepatitis C virus Ab NON-REACT SHANIA NON-REACT SHANIA PHCT CONVERSIONS Hepatitis C virus Ab 0.06 <1.00 PHCT CONVERSIONS Comment:Antibodies to HCV we re not detected. NOTE: This does not entirely exclude the possibility of exposure to HCV since antibody production may lag infection. If there is a high suspicion of HCV infection HCV RNA testing may be of diagnostic value. 06/05/2018 7:48 AM EST Narrative PHCT CONVERSIONS - 06/05/2018 7:39 PM EST Testing Performed at: [facility], [address] [place] [address], , Power Washer: Mariann Talley MD CL#[id number] us [facility] Final Result PHCT CONVERSIONS * MAMMOGRAM SCREENING , BILATERAL FC (09/03/2017 9:28 AM EDT) BI-RADS CODE BI-RADS Category 2: Continue Routine Screening PHCT CONVERSIONS Anatomical Region Laterality Modality BREAST Bilateral Mammography 09/03/2017 9:28 AM EDT us Php Unknown Prov IMG MAMMO ORDERABLES Final Resu lt from Last 3 Months or Most Recently Relevant to Health Maintenance Care Teams Outside Plant Technician Relationship Specialty Start Date End Date Sydney Avery PA [address] [place] [address] PCP - General 12/16/22 Sydney Avrey PA [address] [place] [address] PCP - Backup PCP Family Medicine 06/11/23
--- OUTSIDE RECORDS SUMMARY | 2024-07-12 08:11 | XMS_ITS | Encounter Summary ---
Author Organization [facility] Address [address] [place] [address] Care Team Providers Care Perinatal Instructor Name Role Phone DENY Avery Monika Primary Care Provider [phone] DENY Avery Monika Unavailable [phone] Reason for Visit * Reason Comments E-prescribing Refill Request Encounter Details Date Type Department Care Team (Late st Contact Info) Description 05/15/2024 [facility] [address] [place] [phone] Sydney Avery PA [address], [place] [id number] E-prescribing Refill Request Social History Tobacco Use Types Packs/Day Years [...] and nuts. documented as of this encounter Visit Diagnoses Diagnosis Pure hypercholesterolemia documented in this encounter Care Teams Perinatal Instructor Relationship Specialty Start Date End Date Sydney Avery PA [address] [place] [id number] PCP - General 12/16/22 Sydney Avery PA [address] [place] [address] PCP - Backup PCP Family Medicine 06/11/23 documented as of this encounter
[2024-07-12 08:13] VITALS: BP 150/88; PULSE 93; RESP 13; TEMP 36.2; O2SAT 98; BMI 31.6
== END 2024-07-12 08:50 | disposition home or self-care (01) ==
LOC: HO.HMCWIW 08:03
PROVIDERS: PCP Nurse Practitioner Family; Visit Provider Nurse Practitioner Family
DX: R21 Rash and other nonspecific skin eruption (principal); G43.009 Migraine without aura, not intractable, without status migrainosus

== ENCOUNTER 2024-07-29 10:21 | Outpatient (AMB) | payer BC, SELFPAY ==
--- NOTE | 2024-07-29 10:36 | A.OFFPC_ITS ---
Vital Signs 07/29/24 10:46 07/29/24 11:14 Height 5 ft 1.5 in Weight 166 lb 6 oz BMI 30.9 BP 144/82 H 132/78 Blood Pressure Location Lt brachial Lt brachial Position Sitting Sitting Respiration 14 Pulse 93 Pulse Source Pulse Oximeter Temp 97.1 F Temp Source Oral Pulse Oximetry (%) 97 Oxygen Delivery Method Room Air Intake Visit Reasons: TANYA from [facility] Intake Note: TANYA to establish care and patient also wants to talk about GI issues. Patient needs refill on all meds. [facility] Required: No Allergies No Known Allergies Allergy (Verified 07/29/24 11:03) Medication List - Last Reconciled 07/29/24 by WILL Childs- albuterol sulfate 90 mcg/actuation 2 puffs inhalation Q6H PRN epinephrine (EpiPen) 0.3 mg IM Q4H PRN levothyroxine (Synthroid) 125 mcg PO DAILY ondansetron 4 mg PO Q8H PRN propranolol 10 mg PO BID sumatriptan succinate take 1 tab at onset of headache; if no relief, may repeat 1 tab after at least 2 hrs; max = 2 tabs/24 hrs PO triamcinolone acetonide 0.1% 1 appl topical BID Tobacco use date assessed: 07/29/24 Dental Screening Dental Screen Date: 07/29/24 Did you have a dental visit in the last 12 months?: Yes Did you have a dental problem in the last 6 months where you did not have access to dental care?: No Was dental information given to patient?: Patient has dentist HPI HPI Comments History of Present Illness Details 58 y/o F with asthma, migraines w/o aura , thyroid ca s/p thyroidectomy, former smoker, obesity , menopause, MARE, hypothyroidism, HLD, chronic low back pain, vit d def, s/p c section, adenoidectomy, sinus surgery, hysterectomy, cervical disc replacement , total thyroidectomy Family hx: kidney ca, htn, heart dz, thyroid disorder, colon polyp Social: , now has boyfriend Health Maintenance Pap: 2020 Colon 2007, repeat 10 years Mammo ordered and pending Flu declined Tdap declined [facility] [employer] [employer] [facility] GI Neuro History of Present Illness - The patient is a 58-year-old female he re to [facility] - She reports having trouble with asthma , exacerbated due to heat and seasonal allergies. Using ERUM only. Frequently - She has a history of complete thyroide ctomy due to thyroid cancer and is on levothyroxine but reports occasional non-compliance. Due for labs. - She presents with generalized anxiety disorder and panic attacks, particularly severe with perceived cyclic hormonal changes related to menopause. - Over two years, she has gained approxi mately 50 pounds, affecting her arthritis and general wellbeing. - She suffers from migraines twice a fri linked to hormonal changes, worsening during perceived menstrual cycle times. Using sumitriptan + effect. Dose increased recently. - She is undergoing evaluations for unex plained rash - the biopsy results of which are pending. - She experiences alternating constipati on and explosive diarrhea with black stools, ruling out iron supplements or specific pain medications as causes. has GI appt scheduled, - Reports of emotional distress due to r ecent significant life events, including the loss of family members and pets, which have taken a toll on her mental and physical health. Physical Exam Exam Awake alert NAD RRR LS dim ins/exp wheeze Mood and affect appropriate Discussion Notes I discussed with the patient her ongoing gastrointestinal symptoms, including constipation alternating with explosive diarrhea and black stools. We considered the possibility of H. pylori and agreed on a stool test for evaluation. I advised her that getting routine labs could provide more insights into her condition and emphasized her need for compliance with thyroid medication. We reviewed the management options for asthma, explaining the benefits of adding a long-term inhaled corticosteroid while continuing the use of a rescue inhaler. Discussed consequences of weight gain and the importance of lifestyle modifications, and potential long-term effects on arthritis. We evaluated the possibility of adjusting propranolol for managing anxiety and migraines. Reinforced the significance of regular follow-ups and using the patient portal for test results. 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 Assessment and Plan 1. Asthma: Initiation of long-term inhal ed corticosteroid therapy, alongside maintaining the current rescue inhaler, addressing recent increased symptoms. Education on the usage was provided. 2. Thyroid Cancer: Continuation of Levot hyroxine, with emphasis on consistent daily intake; pending TSH evaluation. 3. Gastrointestinal Symptoms: Patient to complete a stool test for H. pylori; further evaluation dependent on specialist insight. 4. Weight Gain and Obesity: Emphasis on controlled diet and exercise sustained from previous weight management strategies. 5. Migraines and Anxiety: Consider takin g propranolol QHS; additional focus on hormonal influence on migraines. 6. Arthritis: Weight loss addressed as p rimary therapeutic goal; adherence to recommended physical activity. 7. Dermatological Issues: Await and revi ew biopsy results. 8. General Health: Focus on emotional we llbeing; compliance encouragement with chronic condition management and planned follow-up. Patient Instructions - Take all prescribed medications daily as directed, monitor symptoms, and maintain regular exercise. - Complete scheduled lab tests and stool test for H. pylori at the earliest opportunity. - Start using the newly prescribed inhal ed corticosteroid, Fluticasone (Arnuity Ellipta), once daily and continue using the albuterol inhaler as needed. - Check thyroid function labs after comp leting the stool test; prioritize the evaluation of TSH for medication adjustment. - Follow up with specialists and check p atient portal regularly for new updates and test results. - Return to clinic if symptoms worsen or new significant symptoms develop. - RTO 6 weeks Consent Patient was informed and verbally consented to the use of an ambient scribe for clinic note documentation during this visit. Total time spent caring for the patient today was 45 minutes. This includes time spent before the visit reviewing the chart, time spent during the visit, and time spent after the visit on documentation, reviewing laboratory results, diagnostic imaging, medications, performing a medically necessary evaluation, counseling on diagnoses, care coordination, ordering appropriate tests, ordering appropriate medications, review of tests performed by other providers, reporting test results with the patient, communication with other healthcare providers. [facility] Medical History (Updated 07/29/24 @ 18:16 by WILL Childs-BRITNEY) Arthritis Asthma delivery delivered Joint pain Migraines Thyroid cancer Surgical History (Updated 07/29/24 @ 18:15 by WILL Childs-BRITNEY) H/O adenoidectomy H/O sinus surgery History of colonoscopy (~2007) History of hysterectomy S/P cervical disc replacement Family History Other Cancer of kidney Colon polyps Heart disease Hypertension Thyroid disorder Social History Housing: House Patient Tobacco Use Status: Former Tobacco user e-Cigarette/Vaping Use: Never Used Second Hand Smoke Exposure: No service: No Current occupational status: employed 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 1. Little interest or pleasure in doing things: not at all 2. Feeling down, depressed, or hopeless: not at all 3. Trouble falling or staying asleep, or sleeping too much: not at all 4. Feeling tired or having little energy: not at all 5. Poor appetite or overeating: not at all 6. Feeling bad about yourself - or that you are a failure or have let yourself or your family down: not at all 7. Trouble concentrating on things, such as reading the newspaper or watching television: not at all 8. Moving or speaking so slowly that other people could have noticed. Or the opposite - being so fidgety or restless that you have been moving around a lot more than usual: not at all 9. Thoughts that you would be better off or of hurting yourself in some way: not at all Total score: 0 Depression Screening Interpretation: Negative Depression Screening Done: Yes 61290 - PHQ-9 Billing: Yes Source: Developed by Drs. Johnny Golden, Sherlyn Luis, Marc Lopez and colleagues, with an educational dustin from [employer]. Thrive Questionnaire Date Thrive assessed: 07/29/24 I am a: Patient What is your living situation today?: I have a steady place to live Within the past 12 months, did the food you bought not last and you didn't have the money to get more?: Never true Within the past 12 months, did you worry whether your food would run out before you got money to buy more?: Never true Do you have trouble paying for medicines?: No Do you have trouble getting transportation to medical appointments?: No Do you have trouble paying your heating and electricity bill?: No Do you have trouble taking care of your child, family member or friend?: No Do you have trouble with day-to-day activities such as bathing, preparing meals, shopping, managing finances, etc.?: No Are you currently unemployed and looking for a job?: No Are you interested in more education?: I choose not to answer this question Please select the resources that you would like help with: None Currently or been in a relationship where the following occur: No concerns reported THRIVE Score: 0 AUDIT C Alcohol Use Questionnaire (AUDIT-C) 1. How often do you have a drink containing alcohol?: Monthly or less 2. How many drinks containing alcohol do you have on a typical day when you are drinking?: 1 or 2 3. How often do you have six or more drinks on one occasion?: Never Total Score: 1 Score Reviewed/Action Taken: Yes MARE-7 AMB Questionnaire MARE-7 Date MARE - 7 assessed: 07/29/24 Feeling nervous, anxious, or on edge: 1 = Several days Not being able to stop or control worryin = Several days Worrying too much about different things: 0 = Not at all Trouble relaxin = Several days Being so restless that it is hard to sit still: 1 = Several days Becoming easily annoyed or irritable: 0 = Not at all Feeling afraid as if something awful might happen: 0 = Not at all Total MARE-7 score (0-4 normal; 5-9 mild; 10-14 moderate; 15-21 severe): 4 Source: Developed by Drs. Johnny Golden, Sherlyn Luis, Marc Lopez and colleagues, with an educational dustin from [employer]. MARE-7 Assessment Billing MARE-7 Assessment Tool: MARE-7 Assessment 51550 ACT Questionnaire In the past 4 weeks, how much of the time did your asthma keep you from getting as much done at work, school or at home?: A little of the time During the past 4 weeks, how often have you had shortness of breath?: 1-2 times a week During the past 4 weeks, how often did your asthma symptoms wake you up at night or earlier than usual in the morning?: Once or twice per week During the past 4 weeks, how often have you had to use your rescue inhaler or nebulizer medication?: Once a week or less How would you rate your asthma control during the past 4 weeks?: Somewhat controlled ACT Interpretation: Positive ACT Branch: Follow up visit scheduled Score: 19 Physical exam (Primary Care) Vital Signs: Last Vital Signs Temp 97.1 F 07/29/24 10:46 Pulse 93 07/29/24 10:46 Resp 14 07/29/24 10:46 BP 132/78 07/29/24 11:14 Pulse Ox 97 07/29/24 10:46 Oxygen Delivery Method Room Air 07/29/24 10:46 BMI result Body Mass Index 30.9 BMI Assessment/Plan discussion: High BMI High, discussed plan: lifestyle Tobacco/Smoking Status: Tobacco use Status Tobacco use date assessed 07/29/24 07/29/24 10:48 Patient Tobacco Use Status Former Tobacco user 07/29/24 10:48 Tobacco use type 11/03/23 10:11 e-Cigarette/Vaping Use Never Used 07/29/24 10:48 PHQ-9: PHQ-9 Score PHQ-9: Total score 0 07/29/24 11:06 Depression Screening Interpretation: Negative Thrive Assessment: Date of Thrive Assessment Date Thrive assessed 07/29/24 07/29/24 10:48 Currently or been in a relationship where the following occur: No concerns reported Coding Level of Care Code Est Pt Level 5 (27634) Complex EM visit Add On G2211 Diagnoses Abdominal bloating R14.0 Alternating constipation and diarrhea R19.8 H/O thyroidectomy Z98.890; Z90.89 Thyroid cancer C73 BMI 30.0-30.9,adult Z68.30 Obesity (BMI 30-39.9) E66.9 Anxiety F41.9 Arthritis M19.90 Moderate persistent asthma without complication J45.40 Asthma severity: moderate Asthma persistence: persistent Asthma complication type: uncomplicated Postoperative hypothyroidism E89.0 Hypothyroidism type: postoperative Migraine without aura and without status migrainosus, not intractable G43.009 Status migrainosus presence: without status migrainosus Intractability: not intractable Menopause Z78.0 Skin eruption R21 Vitamin D deficiency E55.9 Additional Codes MARE-7 Assessment Billing - MARE-7 Assessment Tool: MARE-7 Assessment 60988 ([id number]) PHQ-9 - 69289 - PHQ-9 Billing: Yes ([id number]) Asthma Control Questionnaire - ACT Interpretation: Positive ([id number]) Assessment & Plan Assessment & Plan (1) Abdominal bloating: Code(s): R14.0 - Abdominal distension (gaseous) Category: Medical (2) Alternating constipation and diarrhea: Code(s): R19.8 - Other specified symptoms and signs involving the digestive system and abdomen Category: Medical (3) H/O thyroidectomy: Comment: d/t thyroid ca Code(s): Z98.890 - Other specified postprocedural states; Z90.89 - Acquired absence of other organs Category: Surgical (4) Thyroid cancer: Comment: s/p thyroidectomy Code(s): C73 - Malignant neoplasm of thyroid gland Category: Medical (5) BMI 30.0-30.9,adult: Code(s): Z68.30 - Body mass index [BMI] 30.0-30.9, adult Category: Medical (6) Obesity (BMI 30-39.9): Code(s): E66.9 - Obesity, unspecified Category: Medical (7) Anxiety: Code(s): F41.9 - Anxiety disorder, unspecified Category: Medical (8) Arthritis: Code(s): M19.90 - Unspecified osteoarthritis, unspecified site Category: Medical (9) Asthma: Code(s): J45.909 - Unspecified asthma, uncomplicated Category: Medical Qualifiers: Asthma severity: moderate Asthma persistence: persistent Asthma complication type: uncomplicated Qualified Code(s): J45.40 - Moderate persistent asthma, uncomplicated (10) Hypothyroidism: Code(s): E03.9 - Hypothyroidism, unspecified Category: Medical Qualifiers: Hypothyroidism type: postoperative Qualified Code(s): E89.0 - Postprocedural hypothyroidism (11) Migraine without aura: Code(s): G43.009 - Migraine without aura, not intractable, without status migrainosus Category: Medical Qualifiers: Status migrainosus presence: without status migrainosus Intractability: not intractable Qualified Code(s): G43.009 - Migraine without aura, not intractable, without status migrainosus (12) Menopause: Code(s): Z78.0 - Asymptomatic menopausal state Category: Medical (13) Skin eruption: Code(s): R21 - Rash and other nonspecific skin eruption Category: Medical (14) Vitamin D deficiency: Code(s): E55.9 - Vitamin D deficiency, unspecified Category: Medical Plan , Orders: Orders Complete Blood Count no Diff Today E55.9 - Vitamin D deficiency, unspecified, R14.0 - Abdominal distension (gaseous), R19.8 - Other specified symptoms and signs involving the digestive system and abdomen, Z78.0 - Asymptomatic menopausal state IRON PROFILE Today E55.9 - Vitamin D deficiency, unspecified, R14.0 - Abdominal distension (gaseous), R19.8 - Other specified symptoms and signs involving the digestive system and abdomen, Z78.0 - Asymptomatic menopausal state Vitamin D 25-OH Total Today E55.9 - Vitamin D deficiency, unspecified, R14.0 - Abdominal distension (gaseous), R19.8 - Other specified symptoms and signs involving the digestive system and abdomen, Z78.0 - Asymptomatic menopausal state Vitamin B12 and Folate Today E55.9 - Vitamin D deficiency, unspecified, R14.0 - Abdominal distension (gaseous), R19.8 - Other specified symptoms and signs involving the digestive system and abdomen, Z78.0 - Asymptomatic menopausal state Microalbumin, Random (w Creat) Today E55.9 - Vitamin D deficiency, unspecified, R14.0 - Abdominal distension (gaseous), R19.8 - Other specified symptoms and signs involving the digestive system and abdomen, Z78.0 - Asymptomatic menopausal state Comprehensive Met. Panel Today E55.9 - Vitamin D deficiency, unspecified, R14.0 - Abdominal distension (gaseous), R19.8 - Other specified symptoms and signs involving the digestive system and abdomen, Z78.0 - Asymptomatic menopausal state Hemoglobin A1c Today E55.9 - Vitamin D deficiency, unspecified, R14.0 - Abdominal distension (gaseous), R19.8 - Other specified symptoms and signs involving the digestive system and abdomen, Z78.0 - Asymptomatic menopausal state Lipid Panel Today E55.9 - Vitamin D deficiency, unspecified, R14.0 - Abdominal distension (gaseous), R19.8 - Other specified symptoms and signs involving the digestive system and abdomen, Z78.0 - Asymptomatic menopausal state TSH reflex Free T4 Today E55.9 - Vitamin D deficiency, unspecified, R14.0 - Abdominal distension (gaseous), R19.8 - Other specified symptoms and signs involving the digestive system and abdomen, Z78.0 - Asymptomatic menopausal state H pylori Ag Stool Today E55.9 - Vitamin D deficiency, unspecified, R14.0 - Abdominal distension (gaseous), R19.8 - Other specified symptoms and signs involving the digestive system and abdomen, Z78.0 - Asymptomatic menopausal state Medications: New propranolol 10 mg PO BID PRN 60 tabs 0RF anxiety fluticasone furoate 50 mcg/actuation (Arnuity Ellipta) 1 inh inhalation DAILY 30 ea 2RF
[2024-07-29 10:46] VITALS: BP 144/82; PULSE 93; RESP 14; TEMP 36.2; O2SAT 97; BMI 30.9
[2024-07-29 11:14] VITALS: BP 132/78
--- OUTSIDE RECORDS SUMMARY | 2024-07-29 11:46 | XMS_ITS | Encounter Summary ---
Author Organization [facility] Address [address] [place] [address] Care Team Providers Care Asphalt Roller Person Name Role Phone DENY Avery Monika Primary Care Provider [phone] DENY Avery Monika Unavailable [phone] Reason for Visit * Reason Comments E-prescribing Refill Request Encounter Details Date Type Department Care Team (Late st Contact Info) Description 05/15/2024 [facility] [address] [place] [phone] Sydney Avery PA [address] [place], [place] [id number] E-prescribing Refill Request Social History Tobacco Use [...] hypercholesterolemia documented in this encounter Care Teams Asphalt Roller Person Relationship Specialty Start Date End Date Sydney Avery PA [address] [place] [id number] PCP - General 12/16/22 Sydney Avery PA [address] [place] [address] PCP - Backup PCP Family Medicine 06/11/23 documented as of this encounter
--- OUTSIDE RECORDS SUMMARY | 2024-07-29 11:46 | XMS_ITS | Encounter Summary ---
Author Organization [facility] Address [address] [place] [address] Care Team Providers Care Farmworker Rice Name Role Phone Pcp, Latoya Primary Care Provider Barbara Lucero APRN Primary Care Provider [phone] Tommy Handy MD Unavailable Encounter Details Date Type Department Care Team (Late st Contact Info) Description 10/12/2015 Scanned Document [facility] Neurosurgery [place] [address] [place] [address] Se Floyd MD [address] [facility] [address] [place] [address] Social History Tobacco Use Types Packs/Day Years [...] on filedocumented in this encounter Care Teams Farmworker Rice Relationship Specialty Start Date End Date Pcp, Latoya PCP - General General Medicine 10/04/15 10/17/15 Barbara Lobo APRN PCP - General 10/18/15 Tommy Handy MD [address] [address] 07/20/12 documented as of this encounter
--- OUTSIDE RECORDS SUMMARY | 2024-07-29 11:46 | XMS_ITS | Encounter Summary ---
Author Organization [facility] Address [address] [place], [place] [id number] Care Team Providers Care Creative Assistant Name Role Phone Tamela Dela Cruz APRN Primary Care Provider Riri ray Pcp, No Primary Care Provider Barbara Lucero APRN Primary Care Provider [phone] Tommy Handy MD Unavailable Encounter Details Date Type Department Care Team (Late st Contact Info) Description 09/27/2015 Scanned Document [address] [phone] Provider, Generic Social History Tobacco [...] on filedocumented in this encounter Care Teams Creative Assistant Relationship Specialty Start Date End Date Tamela Dela Cruz APRN PCP - General Internal Medicine 09/25/15 10/02/15 Pcp, No PCP - General General Medicine 10/04/15 10/17/15 Barbara Lobo APRN PCP - General 10/18/15 Tommy Handy MD [address] [place] [id number] 07/20/12 documented as of this encounter
--- OUTSIDE RECORDS SUMMARY | 2024-07-29 11:46 | XMS_ITS | Clinical Summary ---
Author Organization [facility] Address [address] [place] [address] Care Team Providers Care Internship Name Role Phone Lashell Nuvia Prieto APRN Primary Care Provider [phone] Tommy Handy MD Allergies No known active [...] this topic Medical Devices Implanted Type Area Molding Utility Worker Device Identifier Shelf Expiration Date Model / Serial / Lot 55 Mm Plate Med[employer]onic # [id number] Implanted:Qty : 1 on 10/18/2015 by Se Floyd MD at [facility] Plate N/A: Spine Cervical [employer] MINIMALLY INVASIVE T [id number] / / Description:cervical Lordotic Sr Cortical Block [id number] Implanted:Qty : 1 on 10/18/2015 by Se Floyd MD at [facility] Spine N/A: Spine Cervical [employer] [facility] 07/25/2018 [id number] / [id number] / [id number] Lordotic Sr Cortical Block [id number] Implanted:Qty : 1 on 10/18/2015 by Se Floyd MD at [facility] Spine N/A: Spine Cervical [employer] 07/25/2018 [id number] / [id number] / [id number] Lordotic Sr Cortical Block [id number] Implanted:Qty : 1 on 10/18/2015 by Se Floyd MD at [facility] Spine N/A: Spine Cervical [employer] 06/21/2018 [id number] / [id number] / [id number] Graft Bone Grftn Dbm 1ml Putty Jar - [id number] Implanted:Qty : 1 on 10/18/2015 by Se Floyd MD at [facility] Tissue [employer] [facility] 03/29/2018 [id number] / [id number] / 3.5x15mm Vasd Screw Implanted:Qty : 1 on 10/18/2015 by Se Floyd MD at [facility] N/A: Spine Cervical [employer] MINIMALLY INVASIVE T [id number] / / Advance Directives * Full Code (Latest Code Status on File) Date Activated Date Inactivated Comments 10/18/2015 6:16 PM 10/20/2015 5:34 PM Care Teams Internship Relationship Specialty Start Date End Date Nuvia Lobo APRN PCP - General 10/18/15 Tommy Handy MD [address] [place] [address] [address] [place] [address] 07/20/12
--- OUTSIDE RECORDS SUMMARY | 2024-07-29 11:46 | XMS_ITS | Encounter Summary ---
Author Organization [facility] Address [address] [place] [address] Care Team Providers Care Steam Drier Operator Name Role Phone Barbara Lobo Conner MITCHELL Primary Care Provider [phone] Tommy Handy MD Unavailable Encounter Details Date Type Department Care Team (Late st Contact Info) Description 01/22/2023 10:03 AM EDT Hospital Encounter [facility] [address] [place] [phone] Leidy Mendoza PA-C [address] [place] [address] Social History Tobacco Use Types Packs/Day Years [...] on filedocumented in this encounter Care Teams Steam Drier Operator Relationship Specialty Start Date End Date LashellBarbara miller APRN PCP - General 10/18/15 Tommy Handy MD [address] [address] 07/20/12 documented as of this encounter
--- OUTSIDE RECORDS SUMMARY | 2024-07-29 11:46 | XMS_ITS | Encounter Summary ---
Author Organization [facility] Address [address] [place] [address] Care Team Providers Care Metal Buffer Name Role Phone Tommy Handy MD Primary Care Provider [phone] Tamela Dela Cruz APRN Primary Care Provider Riri ray Pcp, No Primary Care Provider UnavailBarbara Lopez APRN Primary Care Provider [phone] Tommy Handy MD Unavailable Encounter Details Date Type Department Care Team (Late st Contact Info) Description 08/23/2015 Scanned Document [address] [address] Provider, Generic Social History Tobacco [...] on filedocumented in this encounter Care Teams Metal Buffer Relationship Specialty Start Date End Date Tommy Handy MD [address] [place] [address] [address] [place] [address] PCP - General 07/20/12 09/24/15 Tamela Dela Cruz APRN [address] [address] PCP - General Internal Medicine 09/25/15 10/02/15 Pcp, No PCP - General General Medicine 10/04/15 10/17/15 Barbara Lobo APRN PCP - General 10/18/15 Tommy Handy MD [address] [address] 07/20/12 documented as of this encounter
--- OUTSIDE RECORDS SUMMARY | 2024-07-29 11:46 | XMS_ITS | Clinical Summary ---
Author Organization [facility] Address [address] [place] [address] Care Team Providers Care Supervisor [employer] Elements Name Role Phone DENY Avery Monika Primary Care Provider [phone] DENY Avery Monika Unavailable [phone] Allergies Active Allergy Reactions Criticality Noted Date [...] Back pain 12/10/2018 Bee sting allergy 08/20/2018 [place] allergy 08/20/2018 Hyperlipidemia 06/09/2018 Chronic sinusitis 06/05/2018 Allergic rhinitis 06/05/2018 Elevated liver function tests 05/21/2018 Benign essential hypertension 04/24/2018 Overview (06/16/2023): Transitioned From: Elevated blood pressure reading without diagnosis of hypertension Hypothyroidism 04/24/2018 Migraines 04/24/2018 Overview (06/16/2023): Transitioned From: Headache Encounters Date Type Department Care Team Description 05/15/[address] [address] Sydney Avery PA E-prescribing Refill [...] 138/74(2023 12:37 PM EST) No Jennie Martinez, WOOD ROOM SUPERVISOR Note: Above is your goal for blood [...] PM EST FASTING: YES Testing Performed at: [facility], [address] [place] [address], [place] [address], , Student Life Coordinator: Edith Graves MD CL#[id number] [facility] Final Result Performing Organization Address City/State/[facility] Co de Phone Number ORCHARD HARVEST [address] [facility] [place] [address], * XRAY CHEST, 2 VIEWS, PA & LATERAL FC (04/09/2021 11:15 AM EST) [facility] IMAGING STUDY Exam: X-ray chest 2 views No infiltrates or pleural effusions. ??No failure or ??fluid overload. ??Operative change lower cervical spine. ??Thoracic spine appears intact. ??Heart size is normal. IMPRESSION: No acute findings Electronically signed by Ty Nelson MD [facility] CON[facility] Anatomical Region Laterality Modality CHEST Radiographic Mary ging 04/09/2021 11:1 5 AM EST Chidi Davis MD IMG XRAY NO CONTRAST ORDERABLE S Final Result * HEPATITIS PANEL, ACUTE W/REFLEX (06/05/2018 7:48 AM EST) [facility] HEPATITIS A IGM NON-REACT SHANIA NON-REACT SHANIA [...] 06/05/2018 7:39 PM EST Testing Performed at: [facility], [address] [place] [address], , Student Life Coordinator: Mariann Talley MD CL#[id number] us [facility] Final Result PHCT CONVERSIONS * MAMMOGRAM SCREENING , BILATERAL FC (09/03/2017 9:28 AM EDT) BI-RADS CODE BI-RADS Category 2: Continue Routine Screening PHCT CONVERSIONS Anatomical Region Laterality Modality BREAST Bilateral Mammography 09/03/2017 9:28 AM EDT us Php Unknown Prov IMG MAMMO ORDERABLES Final Resu lt from Last 3 Months or Most Recently Relevant to Health Maintenance Care Teams Supervisor [employer] Relationship Specialty Start Date End Date Sydney Avery PA [address] [place] [address] PCP - General 12/16/22 Sydney Avery PA [address] [place] [address] PCP - Backup PCP Family Medicine 06/11/23
--- OUTSIDE RECORDS SUMMARY | 2024-07-29 11:46 | XMS_ITS | Encounter Summary ---
Author Organization [facility] Address [address] [place] [address] Care Team Providers Care Signal Maintenance Technician Name Role Phone Tommy Handy MD Primary Care Provider [phone] Tamela Dela Cruz APRN Primary Care Provider Riri ray Pcp, No Primary Care Provider UnavailBarbara Lopez APRN Primary Care Provider [phone] Tommy Handy MD Unavailable Encounter Details Date Type Department Care Team (Late st Contact Info) Description 05/29/2015 Scanned Document [address] [id number] Provider, Generic Social History Tobacco Use Types [...] on filedocumented in this encounter Care Teams Signal Maintenance Technician Relationship Specialty Start Date End Date Tommy Handy MD [address] [place] [id number] PCP - General 07/20/12 09/24/15 Tamela Dela Cruz APRN [address] [place] [address] PCP - General Internal Medicine 09/25/15 10/02/15 Pcp, No PCP - General General Medicine 10/04/15 10/17/15 Barbara Lobo APRN PCP - General 10/18/15 Tommy Handy MD [address] [place] [address] 07/20/12 documented as of this encounter
--- OUTSIDE RECORDS SUMMARY | 2024-07-29 11:46 | XMS_ITS | Encounter Summary ---
Author Organization [facility] Address [address] [place] [address] Care Team Providers Care Core Dipper Name Role Phone Barbara Lobo Conner MITCHELL Primary Care Provider Tommy Handy MD Unavailable Encounter Details Date Type Department Care Team (Late st Contact Info) Description 08/06/2020 12:41 PM EDT Hospital Encounter [facility] [address] [place] [address] Mikey Corado MD [address] [place] [address] Social History Tobacco Use Types Packs/Day Years [...] on filedocumented in this encounter Care Teams Core Dipper Relationship Specialty Start Date End Date Barbara Lobo APRN PCP - General 10/18/15 Tommy Handy MD [address] [address] 07/20/12 documented as of this encounter
--- OUTSIDE RECORDS SUMMARY | 2024-07-29 11:46 | XMS_ITS | Encounter Summary ---
Author Organization [facility] Address [address] [place] [address] Care Team Providers Care Interior Design Professor Name Role Phone Tamela Dela Cruz APRN Primary Care Provider Riri ray Pcp, No Primary Care Provider Barbara Lucero APRN Primary Care Provider [phone] Tommy Handy MD Unavailable Encounter Details Date Type Department Care Team (Late st Contact Info) Description 10/02/2015 Prep for Surgery [facility] [place] [address] [place] [address] Se Floyd MD [address] [id number] Social History Tobacco Use Types Packs/Day Years [...] on filedocumented in this encounter Care Teams Interior Design Professor Relationship Specialty Start Date End Date Tamela Dela Cruz APRN PCP - General Internal Medicine 09/25/15 10/02/15 Pcp, No PCP - General General Medicine 10/04/15 10/17/15 Barbara Lobo APRN PCP - General 10/18/15 Tommy Handy MD [address] [place] [address] 07/20/12 documented as of this encounter
--- OUTSIDE RECORDS SUMMARY | 2024-07-29 11:46 | XMS_ITS | Encounter Summary ---
Author Organization [facility] Address [address] [place] [address] Care Team Providers Care Senior Technical Program Manager Name Role Phone DENY Avery Monika Primary Care Provider [phone] DENY Avery Monika Unavailable [phone] Encounter Details Date Type Department Care Team (Late st Contact Info) Description 06/21/2023 Orders Only [facility] [address] [place] [address] Sydney Avery PA [address] [place], [place] [address] Medications Social History Tobacco Use Types Packs/Day [...] COTTON Comment: ??CULTURE, URINE, ROUTINE ?Micro Number: ?[id number] ??Test Status: ? Final ??Specimen Source: ?? [...] 5:00 AM EST [facility] Testing performed at: [facility], [facility], [facility], [address] [place] [address], [id number], Bottom Hoop Driver: Valerie Denton M.D. [facility] Collection Date/Time: [id number] [facility] Results Received Date/Time: [id number] [facility] Reported Date/Time: [id number] [facility] Final Result Performing Organization Address [facility]/ZIP Co de Phone Number ORCHARD HARVEST [address] [place] [address], * (ABNORMAL) LIPID PANEL WITH REFLEX TO [...] PM EST FASTING: YES Testing Performed at: [facility], [address] [place] [address], [place] [address], , Bottom Hoop Driver: Edith Graves MD CL#[id number] DEN[facility] Final Result Performing Organization Address [facility]/ZIP Co de Phone Number ORCHARD HARVEST [address] [place] [address], * THYROID STIMULATING HORMONE (TSH) WITH FREE T4 REFLEX, SERUM (06/21/2023 11:29 AM EST) TSH (Thyrotropin) 3.34 0.50 - 4.80 uIU/ml ORCHARD HARVEST 06/21/2023 11:2 9 AM EST 06/21/2023 4:59 PM EST Narrative ORCHARD HARVEST - 06/21/2023 5:33 PM EST Testing Performed at: [facility], [address] [facility], [place] [address], , Bottom Hoop Driver: Edith Graves MD CL#[id number] [facility] Final Result ORCHARD HARVEST [address] [facility] [place] [address], * (ABNORMAL) COMPREHENSIVE METABOLIC PANEL WITH GFR [...] PM EST FASTING: YES Testing Performed at: [facility], [address] [place] [address], , Bottom Hoop Driver: Edith Graves MD CL#[id number] [facility] Final Result ORCHARD HARVEST [address] [facility] [place] [address], documented in this encounter Visit Diagnoses Diagnosis Urgency of urination Abnormal results of liver function studies Nonspecific abnormal results of liver function study Hypothyroidism, unspecified Hyperlipidemia, unspecified documented in this encounter Care Teams Senior Technical Program Manager Relationship Specialty Start Date End Date Sydney Avery PA [address] [place] [address] PCP - General 12/16/22 Sydney Avery PA [address] [place] [address] PCP - Backup PCP Family Medicine 06/11/23 documented as of this encounter
== END 2024-07-29 11:22 | disposition home or self-care (01) ==
LOC: HO.HMCFM 10:22
PROVIDERS: PCP Nurse Practitioner Family; Visit Provider Nurse Practitioner Family
DX: J45.40 Moderate persistent asthma, uncomplicated (principal); C73 Malignant neoplasm of thyroid gland; R14.0 Abdominal distension (gaseous); R19.8 Other specified symptoms and signs involving the digestive system and abdomen; Z98.890 Other specified postprocedural states; G43.009 Migraine without aura, not intractable, without status migrainosus; Z90.89 Acquired absence of other organs; F41.9 Anxiety disorder, unspecified; E66.9 Obesity, unspecified; Z68.30 Body mass index [BMI] 30.0-30.9, adult; M19.90 Unspecified osteoarthritis, unspecified site; E89.0 Postprocedural hypothyroidism; Z78.0 Asymptomatic menopausal state; R21 Rash and other nonspecific skin eruption; E55.9 Vitamin D deficiency, unspecified

== ENCOUNTER → 2024-07-29 10:21 | Outpatient (BNVA) | payer BC, SELFPAY | PROVIDERS: PCP Nurse Practitioner Family; Visit Provider Nurse Practitioner Family | DX: R14.0 Abdominal distension (gaseous) (principal); R19.8 Other specified symptoms and signs involving the digestive system and abdomen; E66.9 Obesity, unspecified; Z68.30 Body mass index [BMI] 30.0-30.9, adult; F41.9 Anxiety disorder, unspecified; M19.90 Unspecified osteoarthritis, unspecified site; J45.40 Moderate persistent asthma, uncomplicated; E89.0 Postprocedural hypothyroidism; G43.009 Migraine without aura, not intractable, without status migrainosus; R21 Rash and other nonspecific skin eruption; E55.9 Vitamin D deficiency, unspecified; Z85.850 Personal history of malignant neoplasm of thyroid; Z78.0 Asymptomatic menopausal state; Z90.89 Acquired absence of other organs | CPT/HCPCS: 96127; 96160 ==

== ENCOUNTER 2024-07-29 11:28 | Outpatient (REF) | payer BC, SELFPAY ==
[2024-07-29 14:39] LABS: Hematocrit 43.4 % (37.0-47.0); Mean Corpuscular HGB Conc 34.6 g/dl (31.0-35.0); Mean Corpuscular Hemoglobin 31.3 pg (27.0-33.0); Mean Corpuscular Volume 90.6 fL (80.0-98.0); Mean Platelet Volume 11.5 fL (9.4-12.3); Platelet Count 232 X10*3/uL (160-400); Red Blood Count 4.79 X10*6/uL (4.20-5.50); Red Cell Distribution Width 13.2 % (11.0-16.0); White Blood Count 9.2 X10*3/uL (4.8-10.8)
[2024-07-29 14:47] LABS: Estimated Average Glucose 108 mg/dL; Hemoglobin A1c % 5.4 % (<6.0)
[2024-07-29 15:11] LABS: Creatinine Urine 105.82 mg/dL; Microalbum/Creatinine Ratio Ur 10.3 ug/mg cr (<30)
[2024-07-29 15:27] LABS: Alanine Aminotransferase 30 U/L (0-31); Albumin Level 4.7 g/dL (3.5-5.0); Alkaline Phosphatase 83 U/L (39-117); Anion Gap 12 (12-20); Aspartate Amino Transferase 24 U/L (5-31); Bilirubin Total 0.4 mg/dL (0.0-1.0); Blood Urea Nitrogen 22 mg/dL (9-16); Calcium 9.4 mg/dL (8.4-10.2); Carbon Dioxide 25 mmol/L (22-29); Chloride 107 mmol/L (96-108); Cholesterol 291 mg/dL (<200); Estimated Glomerular Filt Rate > 60; Glucose Random 103 mg/dL (60-115); HDL Cholesterol 62 mg/dL (>40); Iron 77 mcg/dL (30-160); LDL Cholesterol Calculated 183 mg/dL (<100); Percent Iron Saturation 23 % (15-50); Potassium 3.8 mmol/L (3.3-5.1); Sodium 140 mmol/L (135-145); Total Iron Binding Capacity 334 mcg/dL (228-428); Total Protein 8.1 g/dL (6.5-8.0); Triglycerides 234 mg/dL (<150); Unsaturated Iron Binding 257 ug/dL
[2024-07-29 15:28] LABS: TSH reflex Free T4 1.95 uIU/mL (0.32-4.0); Vitamin D 25-OH Total 65.1 ng/mL (>30)
[2024-07-29 15:50] LABS: Folate 10.6 ng/mL (> or = 4.0); Vitamin B12 464 pg/mL (200-900)
== END 2024-07-29 11:29 | disposition home or self-care (01) ==
LOC: HO.WFDLDS 11:28
PROVIDERS: Visit Provider Nurse Practitioner Family
DX: E55.9 Vitamin D deficiency, unspecified (principal); R19.8 Other specified symptoms and signs involving the digestive system and abdomen; R14.0 Abdominal distension (gaseous); Z78.0 Asymptomatic menopausal state; Z13.1 Encounter for screening for diabetes mellitus
CPT/HCPCS: 36415; 80053; 80061; 82043; 82306; 82570; 82607; 82746; 83036; 83540; 84443; 85027

== ENCOUNTER 2024-08-11 14:35 | Outpatient (REF) | payer BC, SELFPAY ==
--- OUTSIDE RECORDS SUMMARY | 2024-08-11 17:17 | XMS_ITS | Clinical Summary ---
Author Organization [facility] Address [address] [place] [address] Care Team Providers Care Assistant To The President Name Role Phone DENY Avery Monika Primary Care Provider [phone] DENY Avery Monika Unavailable Allergies Active Allergy Reactions Criticality Noted Date [...] Back pain 12/10/2018 Bee sting allergy 08/20/2018 [place] allergy 08/20/2018 Hyperlipidemia 06/09/2018 Chronic sinusitis 06/05/2018 Allergic rhinitis 06/05/2018 Elevated liver function tests 05/21/2018 Benign essential hypertension 04/24/2018 Overview (06/16/2023): Transitioned From: Elevated blood pressure reading without diagnosis of hypertension Hypothyroidism 04/24/2018 Migraines 04/24/2018 Overview (06/16/2023): Transitioned From: Headache Encounters Date Type Department Care Team Description 05/15/[address] [address] Sydney Avery PA E-prescribing Refill [...] 138/74(2023 12:37 PM EST) No Jennie Martinez, ASSISTANT PROFESSOR OF ENGLISH Note: Above is your goal for blood [...] PM EST FASTING: YES Testing Performed at: [facility], [address] [place] [address], [place] [address], , Qc Lab Technician: Edith Graves MD CL#[id number] [facility] Final Result Performing Organization Address City/State/[facility] Co de Phone Number ORCHARD HARVEST [address] [facility] [place] [address], * XRAY CHEST, 2 VIEWS, PA & LATERAL FC (04/09/2021 11:15 AM EST) [facility] IMAGING STUDY Exam: X-ray chest 2 views No infiltrates or pleural effusions. ??No failure or ??fluid overload. ??Operative change lower cervical spine. ??Thoracic spine appears intact. ??Heart size is normal. IMPRESSION: No acute findings Electronically signed by Ty Nelson MD [facility] Anatomical Region Laterality Modality CHEST Radiographic Mary ging 04/09/2021 11:1 5 AM EST Chidi Davis MD IMG XRAY NO CONTRAST ORDERABLE S Final Result * HEPATITIS PANEL, ACUTE W/REFLEX (06/05/2018 7:48 AM EST) [facility] HEPATITIS A IGM NON-REACT SHANIA NON-REACT SHANIA [...] 06/05/2018 7:39 PM EST Testing Performed at: [facility], [address] [place] [address], , Qc Lab Technician: Mariann Talley MD CL#[id number] us [facility] Final Result PHCT CONVERSIONS * MAMMOGRAM SCREENING , BILATERAL FC (09/03/2017 9:28 AM EDT) BI-RADS CODE BI-RADS Category 2: Continue Routine Screening PHCT CONVERSIONS Anatomical Region Laterality Modality BREAST Bilateral Mammography 09/03/2017 9:28 AM EDT us Php Unknown Prov IMG MAMMO ORDERABLES Final Resu lt from Last 3 Months or Most Recently Relevant to Health Maintenance Care Teams Assistant To The President Relationship Specialty Start Date End Date Sydney Avery PA [address] [place] [address] PCP - General 12/16/22 Sydney Avery PA [address] [place] [address] PCP - Backup PCP Family Medicine 06/11/23
--- OUTSIDE RECORDS SUMMARY | 2024-08-11 17:17 | XMS_ITS | Encounter Summary ---
Author Organization [facility] Address [address] [place] [address] Care Team Providers Care Counterperson Name Role Phone DENY Avery Monika Primary Care Provider [phone] DENY Avery Monika Unavailable [phone] Reason for Visit * Reason Comments E-prescribing Refill Request Encounter Details Date Type Department Care Team (Late st Contact Info) Description [facility] [address] [place] [phone] Sydney Avery PA [address] [place], [place] [address] E-prescribing Refill Request Social History Tobacco Use [...] hypercholesterolemia documented in this encounter Care Teams Counterperson Relationship Specialty Start Date End Date Sydney Avery PA [address] [place] [address] PCP - General 12/16/22 Sydney Avery PA [address] [place] [address] PCP - Backup PCP Family Medicine 06/11/23 documented as of this encounter
--- OUTSIDE RECORDS SUMMARY | 2024-08-11 17:17 | XMS_ITS | Encounter Summary ---
Author Organization [facility] Address [address] [place] [address] Care Team Providers Care Sterile Supply Technician Name Role Phone DENY Avery Monika Primary Care Provider DENY Avery Monika Unavailable [phone] Encounter Details Date Type Department Care Team (Late st Contact Info) Description 06/21/2023 Orders Only [facility] [address] [place] [address] Sydney Avery PA [address] [place], [place] [phone] Medications Social History Tobacco Use Types Packs/Day [...] COTTON Comment: ??CULTURE, URINE, ROUTINE ?Micro Number: ?[id number] ??Test Status: ? Final ??Specimen Source: ?? [...] 5:00 AM EST [facility] Testing performed at: [facility], [employer] [facility], [address] [place] [address], [phone], Route Delivery Manager: Valerie Denton M.D. [facility] Collection Date/Time: [id number] [facility] Results Received Date/Time: [id number] [facility] Reported Date/Time: [id number] [facility] Final Result Performing Organization Address [facility]/ZIP Co de Phone Number ORCHARD HARVEST [address] [place] [address], * (ABNORMAL) LIPID PANEL WITH REFLEX TO [...] PM EST FASTING: YES Testing Performed at: [employer], [address] [place] [address], [place] [address], , Route Delivery Manager: Edith Graves MD CL#[id number] DEN[facility] Final Result Performing Organization Address [facility]/ZIP Co de Phone Number ORCHARD HARVEST [address] [place] [address], * THYROID STIMULATING HORMONE (TSH) WITH FREE T4 REFLEX, SERUM (06/21/2023 11:29 AM EST) TSH (Thyrotropin) 3.34 0.50 - 4.80 uIU/ml ORCHARD HARVEST 06/21/2023 11:2 9 AM EST 06/21/2023 4:59 PM EST Narrative ORCHARD HARVEST - 06/21/2023 5:33 PM EST Testing Performed at: [facility], [address] [facility], [place] [address], , Route Delivery Manager: Edith Graves MD CL#[id number] DEN[facility] Final Result ORCHARD HARVEST [address] [facility] [place] [address], * (ABNORMAL) COMPREHENSIVE METABOLIC PANEL WITH GFR [...] PM EST FASTING: YES Testing Performed at: [facility], [address] [place] [address], , Route Delivery Manager: Edith Graves MD CL#[id number] DENY [facility] Final Result ORCHARD HARVEST [address] [place] [address], documented in this encounter Visit Diagnoses Diagnosis Urgency of urination Abnormal results of liver function studies Nonspecific abnormal results of liver function study Hypothyroidism, unspecified Hyperlipidemia, unspecified documented in this encounter Care Teams Sterile Supply Technician Relationship Specialty Start Date End Date Sydney Avery PA [address] [place] [address] PCP - General 12/16/22 Sydney Avery PA [address] [place] [address] PCP - Backup PCP Family Medicine 06/11/23 documented as of this encounter
== END 2024-08-11 14:36 | disposition home or self-care (01) ==
LOC: HO.LNP 14:35
PROVIDERS: Visit Provider Nurse Practitioner Family
DX: R19.8 Other specified symptoms and signs involving the digestive system and abdomen (principal); R14.0 Abdominal distension (gaseous); E55.9 Vitamin D deficiency, unspecified; Z78.0 Asymptomatic menopausal state
CPT/HCPCS: 87338

== ENCOUNTER 2024-08-26 09:29 | Outpatient (AMB) | payer BC, SELFPAY ==
--- NOTE | 2024-08-26 09:31 | MHC.PC.OV ---
Vital Signs 08/26/24 09:34 08/26/24 09:52 Height 5 ft 1.5 in Weight 167 lb 8 oz BMI 31.1 BP 148/80 H 118/70 Blood Pressure Location Lt brachial Rt brachial Position Sitting Sitting Respiration 13 Pulse 86 Pulse Source Pulse Oximeter Temp 97.5 F Temp Source Oral Pulse Oximetry (%) 97 Oxygen Delivery Method Room Air Intake Visit Reasons: 4-6 weeks fu labs/asthma mgmt Intake Note: Follow up to review labs. Reflow Operator Required: No Allergies No Known Allergies Allergy (Verified 08/26/24 09:39) Medication List - Last Reconciled 08/26/24 by Yaritza Alexandra, MACHINE MAINTENANCE REPAIRER- albuterol sulfate 90 mcg/actuation 2 puffs inhalation Q6H PRN epinephrine (EpiPen) 0.3 mg (0.3 mL) IM Q4H PRN fluticasone furoate 50 mcg/actuation (Arnuity Ellipta) 1 inh inhalation DAILY ondansetron 4 mg PO Q8H PRN propranolol 10 mg PO BID PRN sumatriptan succinate take 1 tab at onset of headache; if no relief, may repeat 1 tab after at least 2 hrs; max = 2 tabs/24 hrs PO Synthroid (levothyroxine) 125 mcg PO DAILY NS triamcinolone acetonide 0.1% 1 appl topical BID Tobacco use date assessed: 08/26/24 Dental Screening Dental Screen Date: 08/26/24 Did you have a dental visit in the last 12 months?: Yes Did you have a dental problem in the last 6 months where you did not have access to dental care?: No Was dental information given to patient?: Patient has dentist HPI HPI Comments History of Present Illness Details 58 y/o F with asthma, migraines w/o aura, thyroid ca s/p thyroidectomy, former smoker, obesity , menopause, MARE, hypothyroidism, HLD, chronic low back pain, vit d def, s/p c section, adenoidectomy, sinus surgery, hysterectomy, cervical disc replacement , total thyroidectomy Family hx: kidney ca, htn, heart dz, thyroid disorder, colon polyp Social: , now has boyfriend Health Maintenance Pap: 2020 Colon 2008, repeat 10 years Mammo ordered and pending Flu declined Tdap declined [facility] ATTENDING AMBULATORY CARE GI appt at [facility] October 2024 Neuro History of Present Illness - The patient is a 58-year-old female presenting with chronic conditions management including respiratory difficulty, hyperlipidemia, and menopausal symptom concerns. - Past thyroidectomy due to thyroid cancer, with a lack of current records detailing subsequent follow-up or TSH management goals. Done in [place] - Breathing difficulties remain untreated due to pharmacy supply issues with prescribed inhaler(arnuity) exacerbated by allergy season and ongoing lack of medication. - Hyperlipidemia management is challenging due to past issues with atorvastatin causing elevated liver enzymes, and ongoing high cholesterol levels require new strategies. - Significant weight management issues are complicating overall health, with a notable increase in weight and difficulty losing weight despite lifestyle changes. - Menopausal symptoms are pronounced, with heavy menstrual-like pain, irritability, and migraines impacting quality of life; complications in obtaining timely gynecological consultation. - Medication management is needed for migraines with issues related to obtaining refills on current medication. - Awaiting results of a recent skin lesion biopsy with no outcome communicated yet. Physical Exam Awake alert NAD RRR LS dim ins/exp wheezes BLL Mood and affect appropriate Results - Labs: - Total cholesterol: 291 mg/dL - LDL cholesterol: 183 mg/dL - HDL cholesterol: 62 mg/dL - Triglycerides: 234 mg/dL (non-fasting) - Test Outcomes: - H. pylori negative test result from gastrointestinal examination. labs 07/29/24 elevated lipids, vit d normal, negative h pylor Discussion Notes I discussed with the patient the need to address her multiple chronic conditions and to ensure proper management. We plan to retry prescribing the inhaler that could not be obtained initially,Arnuity. I proposed the use of Zetia or the herbal supplement Muhlenberg Bergamot to help manage her hyperlipidemia due to previous statin-associated liver issues. The patient expressed challenges with weight loss, and we agreed to explore additional support through specialist consultation, including reaching out to a menopause specialist at [facility], Bailee Davis. I provided details on scheduling and contacting the new customer counter associate. Migraine management was also addressed, ensuring she will obtain an appropriate prescription with renewals for a year. I advised her on obtaining previous thyroid cancer treatment records which can help inform further management. Finally, I emphasized using the patient portal to streamline future medical communications and appointments. Assessment and Plan 1. Asthma and Respiratory Difficulty I suspect asthma is causing the patient's respiratory symptoms and will address with the prescribed inhaler, monitoring response for effectiveness. 2. Hyperlipidemia Consider non-statin medication Zetia, or [id number] Muhlenberg Bergamot, to manage cholesterol without liver risk. 3. Menopausal Symptoms Refer to menopause specialist Bailee Davis for further hormonal assessment and potential treatment adjustments. 4. Weight Management Encourage ongoing lifestyle measures and explore hormonal influences with upcoming gynecological care. 5. Migraine Headaches Ensure access to medications with extended prescription validity for consistent management. 6. Hypertension Continue current management as blood pressure readings are stable. 7. Thyroid History Request the patient to locate past treatment records for guiding ongoing thyroid care. Patient Instructions - Fill and start using the prescribed inhaler from the pharmacy; contact if issues persist. - Consider using Zetia or Muhlenberg Bergamot for cholesterol management. - Follow up with menopause specialist Bailee Davis, and use the contact details provided. - Continue lifestyle measures for weight management. - Use the patient portal for medical communication to expedite appointment scheduling and inquiries. - Bring any available thyroid surgery records to the next appointment. - Monitor and manage migraine symptoms with newly renewed medication supply. - RTO 3 months for routine fu, sooner PRN Consent Patient was informed and verbally consented to the use of an ambient scribe for clinic note documentation during this visit. Total time spent caring for the patient today was 41 minutes. This includes time spent before the visit reviewing the chart, time spent during the visit, and time spent after the visit on documentation, reviewing laboratory results, diagnostic imaging, medications, performing a medically necessary evaluation, counseling on diagnoses, care coordination, ordering appropriate tests, ordering appropriate medications, review of tests performed by other providers, reporting test results with the patient, communication with other healthcare providers. [facility] Medical History (Updated 07/29/24 @ 18:16 by WILL Childs-BRITNEY) Arthritis Asthma delivery delivered Joint pain Migraines Thyroid cancer Surgical History (Updated 07/29/24 @ 18:15 by WILL Childs-BRITNEY) H/O adenoidectomy H/O sinus surgery History of colonoscopy (~2007) History of hysterectomy S/P cervical disc replacement Family History Other Cancer of kidney Colon polyps Heart disease Hypertension Thyroid disorder Social History Housing: House Patient Tobacco Use Status: Former Tobacco user e-Cigarette/Vaping Use: Never Used Second Hand Smoke Exposure: No service: No Current occupational status: employed 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 1. Little interest or pleasure in doing things: not at all 2. Feeling down, depressed, or hopeless: not at all 3. Trouble falling or staying asleep, or sleeping too much: not at all 4. Feeling tired or having little energy: nearly every day 5. Poor appetite or overeating: several days 6. Feeling bad about yourself - or that you are a failure or have let yourself or your family down: not at all 7. Trouble concentrating on things, such as reading the newspaper or watching television: not at all 8. Moving or speaking so slowly that other people could have noticed. Or the opposite - being so fidgety or restless that you have been moving around a lot more than usual: not at all 9. Thoughts that you would be better off or of hurting yourself in some way: not at all Total score: 4 Depression Screening Interpretation: Negative Depression Screening Done: Yes 02659 - PHQ-9 Billing: Yes Source: Developed by Drs. Johnny Golden, Sherlyn Luis, Marc Lopez and colleagues, with an educational dustin from [employer]. Thrive Questionnaire Date Thrive assessed: 08/26/24 I am a: Patient What is your living situation today?: I have a steady place to live Within the past 12 months, did the food you bought not last and you didn't have the money to get more?: Never true Within the past 12 months, did you worry whether your food would run out before you got money to buy more?: Never true Do you have trouble paying for medicines?: No Do you have trouble getting transportation to medical appointments?: No Do you have trouble paying your heating and electricity bill?: No Do you have trouble taking care of your child, family member or friend?: No Do you have trouble with day-to-day activities such as bathing, preparing meals, shopping, managing finances, etc.?: No Are you currently unemployed and looking for a job?: No Are you interested in more education?: I choose not to answer this question Please select the resources that you would like help with: None Currently or been in a relationship where the following occur: No concerns reported THRIVE Score: 0 MARE-7 AMB Questionnaire MARE-7 Date MARE - 7 assessed: 08/26/24 Feeling nervous, anxious, or on edge: 0 = Not at all Not being able to stop or control worryin = Not at all Worrying too much about different things: 0 = Not at all Trouble relaxin = Not at all Being so restless that it is hard to sit still: 0 = Not at all Becoming easily annoyed or irritable: 0 = Not at all Feeling afraid as if something awful might happen: 0 = Not at all Total MARE-7 score (0-4 normal; 5-9 mild; 10-14 moderate; 15-21 severe): 0 Source: Developed by Drs. Johnny Golden, Sherlyn Luis, Marc Lopez and colleagues, with an educational dustin from [employer]. MARE-7 Assessment Billing MARE-7 Assessment Tool: MARE-7 Assessment 01830 Physical exam (Primary Care) Vital Signs: Last Vital Signs Temp 97.5 F 08/26/24 09:34 Pulse 86 08/26/24 09:34 Resp 13 08/26/24 09:34 BP 118/70 08/26/24 09:52 Pulse Ox 97 08/26/24 09:34 Oxygen Delivery Method Room Air 08/26/24 09:34 BMI result Body Mass Index 31.1 Tobacco/Smoking Status: Tobacco use Status Tobacco use date assessed 08/26/24 08/26/24 09:36 Patient Tobacco Use Status Former Tobacco user 08/26/24 09:32 Tobacco use type 11/03/23 10:11 e-Cigarette/Vaping Use Never Used 08/26/24 09:32 PHQ-9: PHQ-9 Score PHQ-9: Total score 4 08/26/24 09:40 Depression Screening Interpretation: Negative Thrive Assessment: Date of Thrive Assessment Date Thrive assessed 08/26/24 08/26/24 09:32 Currently or been in a relationship where the following occur: No concerns reported Coding Level of Care Code Est Pt Level 5 (12609) Complex EM visit Add On G2211 Diagnoses Menopause Z78.0 Postoperative hypothyroidism E89.0 Hypothyroidism type: postoperative Hypercholesterolemia E78.00 Moderate persistent asthma without complication J45.40 Asthma severity: moderate Asthma persistence: persistent Asthma complication type: uncomplicated Elevated blood pressure reading without diagnosis of hypertension R03.0 Environmental allergies Z91.09 H/O thyroidectomy Z98.890; Z90.89 Migraine without aura and without status migrainosus, not intractable G43.009 Status migrainosus presence: without status migrainosus Intractability: not intractable Additional Codes MARE-7 Assessment Billing - MARE-7 Assessment Tool: MARE-7 Assessment 80819 ([id number]) PHQ-9 - 22098 - PHQ-9 Billing: Yes ([id number]) Assessment & Plan Assessment & Plan (1) Menopause: Code(s): Z78.0 - Asymptomatic menopausal state Category: Medical (2) Hypothyroidism: Code(s): E03.9 - Hypothyroidism, unspecified Category: Medical Qualifiers: Hypothyroidism type: postoperative Qualified Code(s): E89.0 - Postprocedural hypothyroidism (3) Hypercholesterolemia: Code(s): E78.00 - Pure hypercholesterolemia, unspecified Category: Medical (4) Asthma: Code(s): J45.909 - Unspecified asthma, uncomplicated Category: Medical Qualifiers: Asthma severity: moderate Asthma persistence: persistent Asthma complication type: uncomplicated Qualified Code(s): J45.40 - Moderate persistent asthma, uncomplicated (5) Elevated blood pressure reading without diagnosis of hypertension: Code(s): R03.0 - Elevated blood-pressure reading, without diagnosis of hypertension Category: Medical (6) Environmental allergies: Code(s): Z91.09 - Other allergy status, other than to drugs and biological substances Category: Medical (7) H/O thyroidectomy: Comment: d/t thyroid ca Code(s): Z98.890 - Other specified postprocedural states; Z90.89 - Acquired absence of other organs Category: Medical (8) Migraine without aura: Code(s): G43.009 - Migraine without aura, not intractable, without status migrainosus Category: Medical Qualifiers: Status migrainosus presence: without status migrainosus Intractability: not intractable Qualified Code(s): G43.009 - Migraine without aura, not intractable, without status migrainosus Plan . Orders: Orders TSH reflex Free T4 3 Months E78.00 - Pure hypercholesterolemia, unspecified, E89.0 - Postprocedural hypothyroidism Lipid Panel 3 Months E78.00 - Pure hypercholesterolemia, unspecified, E89.0 - Postprocedural hypothyroidism TSH reflex Free T4 11/03/23 Z00.00 - Encounter for general adult medical examination without abnormal findings Referrals DIESEL MACHINIST Referral Z78.0 - Asymptomatic menopausal state Medications: Refilled fluticasone furoate 50 mcg/actuation (Arnuity Ellipta) 1 inh inhalation DAILY 30 ea 2RF sumatriptan succinate take 1 tab at onset of headache; if no relief, may repeat 1 tab after at least 2 hrs; max = 2 tabs/24 hrs PO 9 tabs 12RF Patient Instructions: Mikey Naidu
[2024-08-26 09:34] VITALS: BP 148/80; PULSE 86; RESP 13; TEMP 36.4; O2SAT 97; BMI 31.1
[2024-08-26 09:52] VITALS: BP 118/70
--- OUTSIDE RECORDS SUMMARY | 2024-08-26 10:51 | XMS_ITS | Encounter Summary ---
Author Organization [facility] Address [address] [place] [address] Care Team Providers Care Site Inspector Name Role Phone Tommy Handy MD Primary Care Provider [phone] Tamela Dela Cruz APRN Primary Care Provider Riri ray Pcp, No Primary Care Provider UnavailBarbara Lopez APRN Primary Care Provider [phone] Tommy Handy MD Unavailable Encounter Details Date Type Department Care Team (Late st Contact Info) Description 05/29/2015 Scanned Document [address] [address] Provider, Generic Social History Tobacco Use Types Packs/Day Years Used Date Smoking Tobacco: Never Alcohol Use Standard Drinks/Week Comments Yes 0 (1 standard drink = 0.6 oz pur e alcohol) Comments Unknown Sex and Gender Information Value [...] AM EST Ordered by an unspecified provider. us Generic Provider IMG DIAGNOSTIC IMAGING ORDERABL ES Final Result documented in this encounter Visit Diagnoses Not on filedocumented in this encounter Care Teams Site Inspector Relationship Specialty Start Date End Date Tommy Handy MD [address] [place] [address] PCP - General 07/20/12 09/24/15 Tamela Dela Cruz APRN [address] [place] [address] PCP - General Internal Medicine 09/25/15 10/02/15 Pcp, Latoya PCP - General General Medicine 10/04/15 10/17/15 Barbara Lobo APRN PCP - General 10/18/15 Tommy Handy MD [address] [place] [address] 07/20/12 documented as of this encounter
--- OUTSIDE RECORDS SUMMARY | 2024-08-26 10:51 | XMS_ITS | Encounter Summary ---
Author Organization [facility] Address [address] [place] [address] Care Team Providers Care Program Schedule Clerk Name Role Phone Barbara Lobo Conner MITCHELL Primary Care Provider [phone] Tommy Handy MD Unavailable Encounter Details Date Type Department Care Team (Late st Contact Info) Description 08/06/2020 12:41 PM EDT Hospital Encounter [facility] [address] [place] [address] Mikey Corado MD [address] [place] [address] Social History Tobacco Use Types Packs/Day Years [...] on filedocumented in this encounter Care Teams Program Schedule Clerk Relationship Specialty Start Date End Date LashellBarbara APRN PCP - General 10/18/15 Tommy Handy MD [address] [address] 07/20/12 documented as of this encounter
--- OUTSIDE RECORDS SUMMARY | 2024-08-26 10:51 | XMS_ITS | Encounter Summary ---
Author Organization [facility] Address [address] [place] [address] Care Team Providers Care Lineman Apprentice Name Role Phone Pcp, Latoya Primary Care Provider Barbara Lucero APRN Primary Care Provider [phone] Tommy Handy MD Unavailable Encounter Details Date Type Department Care Team (Late st Contact Info) Description 10/12/2015 Scanned Document [facility] [place] [address] [place] [address] Se Floyd MD [address] [facility] [address] [place] [address] Social History Tobacco Use Types Packs/Day Years [...] on filedocumented in this encounter Care Teams Lineman Apprentice Relationship Specialty Start Date End Date Pcp, Latoya PCP - General General Medicine 10/04/15 10/17/15 Barbara Lobo APRN PCP - General 10/18/15 Tommy Handy MD [address] [place] [address] 07/20/12 documented as of this encounter
--- OUTSIDE RECORDS SUMMARY | 2024-08-26 10:51 | XMS_ITS | Encounter Summary ---
Author Organization [facility] Address [address] [place], [place] [address] Care Team Providers Care Rug Repairer Name Role Phone Tamela Dela Cruz APRN Primary Care Provider Riri ray Pcp, No Primary Care Provider Barbara Lucero APRN Primary Care Provider [phone] Tommy Handy MD Unavailable Encounter Details Date Type Department Care Team (Late st Contact Info) Description 09/27/2015 Scanned Document [address] [address] Provider, Generic Social History Tobacco [...] on filedocumented in this encounter Care Teams Rug Repairer Relationship Specialty Start Date End Date Tamela Dela Cruz APRN PCP - General Internal Medicine 09/25/15 10/02/15 Pcp, No PCP - General General Medicine 10/04/15 10/17/15 Barbara Lobo APRN PCP - General 10/18/15 Tommy Handy MD [address] [place] [address] 07/20/12 documented as of this encounter
--- OUTSIDE RECORDS SUMMARY | 2024-08-26 10:51 | XMS_ITS | Clinical Summary ---
Author Organization [facility] Address [address] [place] [address] Care Team Providers Care Bridge Design Engineer Name Role Phone Lashell, Nuvia Prieto APRN Primary Care Provider [phone] Tommy Handy MD Unavailable Allergies No known active allergies Medications levothyroxine (SYNTHROID, LEVOTHROID) 125 MCG tablet Take 125 mcg by mouth daily on an empty stomach. Active propranolol (INDERAL) 10 MG tablet Take 10 mg by mouth. Active azelastine (ASTELIN) 0.1 % nasal spray 1 spray into each nostril 2 (two) times a day as needed. Active meloxicam (MOBIC) 15 MG tabletIndications: Primary osteoarthritis of left foot Take 1 tablet (15 mg total) by mouth daily. 14 tablet 3 Active diclofenac (VOLTAREN) 1 % gelIndications:Liza nuvia osteoarthritis of left foot Apply topically 4 (four) times a day. Use dosing card to measure dose. Apply to entire affect area. 100 g 3 Active montelukast (SINGULAIR) 10 MG tablet Take 10 mg by mouth daily. 3 Active spacer for MDI (Aerochamber/Breat heRite/Ellipse) DeviceIndications: Wheezing Use as instructed 1 each 3 Active EPINEPHrine (EPIPEN 2-BG) 0.3 mg/0.3 mL IJ auto-injection Inject 0.3 mg into the shoulder, thigh, or buttocks once as needed for allergic reaction. Active albuterol (PROVENTIL HFA; VENTOLIN HFA) 108 (90 Base) MCG/ACT inhalerIndications :COVID Inhale 2 puffs 4 times daily (every 6 hours) as needed for wheezing. 1 each 3 Active benzonatate (TESSALON) 200 MG capsuleIndications :COVID Take 1 capsule (200 mg total) by mouth 3 (three) times a day as needed for cough. 20 capsule 3 Active Active Problems Problem Noted Date Diagnosed [...] this topic Medical Devices Implanted Type Area Executive Team Leader Device Identifier Shelf Expiration Date Model / Serial / Lot 55 Mm Plate Medtronic # [id number] Implanted:Qty : 1 on 10/18/2015 by Se Floyd MD at [facility] Plate N/A: Spine Cervical [employer] NEUROMODULATION - DI [id number] / / Description:cervical Lordotic Sr Cortical Block [id number] Implanted:Qty : 1 on 10/18/2015 by Se Floyd MD at [facility] Spine N/A: Spine Cervical [employer] 07/25/2018 [id number] / [id number] / [id number] Lordotic Sr Cortical Block [id number] Implanted:Qty : 1 on 10/18/2015 by Se Floyd MD at [facility] Spine N/A: Spine Cervical [employer] 07/25/2018 [id number] / [id number] / [id number] Lordotic Sr Cortical Block [id number] Implanted:Qty : 1 on 10/18/2015 by Se Floyd MD at [facility] Spine N/A: Spine Cervical [employer] 06/21/2018 [id number] / [id number] / [id number] Graft Bone Grftn Dbm 1ml Putty Jar - [id number] Implanted:Qty : 1 on 10/18/2015 by Se Floyd MD at [facility] Tissue [employer] 03/29/2018 [id number] / [id number] / 3.5x15mm Vasd Screw Implanted:Qty : 1 on 10/18/2015 by Se Floyd MD at [facility] N/A: Spine Cervical [employer] NEUROMODULATION - DI [id number] / / Insurance [facility] Advance Directives * Full Code (Latest Code Status on File) Date Activated Date Inactivated Comments 10/18/2015 6:16 PM 10/20/2015 5:34 PM Care Teams Bridge Design Engineer Relationship Specialty Start Date End Date LashellNuvia miller APRN PCP - General 10/18/15 Tommy Handy MD [address] [place] [address] 07/20/12
--- OUTSIDE RECORDS SUMMARY | 2024-08-26 10:51 | XMS_ITS | Encounter Summary ---
Author Organization [facility] Address [address] [place] [address] Care Team Providers Care Brake Coupler Dinkey Name Role Phone LashellBarbara parker Conner MITCHELL Primary Care Provider Tommy Handy MD Unavailable Encounter Details Date Type Department Care Team (Late st Contact Info) Description 01/22/2023 10:03 AM EDT Hospital Encounter [facility] [address] [place] [phone] Leidy Mendoza PA-C [address] [place] [address] Social History Tobacco Use Types Packs/Day Years [...] on filedocumented in this encounter Care Teams Brake Coupler Dinkey Relationship Specialty Start Date End Date LashellBarbara APRN PCP - General 10/18/15 Tommy Handy MD [address] [facility] [address] [place] [address] 07/20/12 documented as of this encounter
--- OUTSIDE RECORDS SUMMARY | 2024-08-26 10:51 | XMS_ITS | Encounter Summary ---
Author Organization [facility] Address [address] [place] [address] Care Team Providers Care Spiral Runner Name Role Phone Tamela Dela Cruz APRN Primary Care Provider Riri ray Pcp, No Primary Care Provider Barbara Lucero APRN Primary Care Provider [phone] Tommy Handy MD Unavailable Encounter Details Date Type Department Care Team (Late st Contact Info) Description 10/02/2015 Prep for Surgery [facility] Neurosurgery [place] [address] [place] [address] Se Floyd MD [address] [address] Social History Tobacco Use Types Packs/Day Years [...] on filedocumented in this encounter Care Teams Spiral Runner Relationship Specialty Start Date End Date Tamela Dela Cruz APRN PCP - General Internal Medicine 09/25/15 10/02/15 Pcp, No PCP - General General Medicine 10/04/15 10/17/15 Barbara Lobo APRN PCP - General 10/18/15 Tommy Handy MD [address] [address] 07/20/12 documented as of this encounter
--- OUTSIDE RECORDS SUMMARY | 2024-08-26 10:51 | XMS_ITS | Encounter Summary ---
Author Organization [facility] Address [address] [place] [address] Care Team Providers Care Flight Simulator Teacher Name Role Phone Tommy Handy MD Primary Care Provider [phone] Tamela Dela Cruz APRN Primary Care Provider Riri ray Pcp, No Primary Care Provider UnavailBarbara Lopez APRN Primary Care Provider [phone] Tommy Handy MD Unavailable Encounter Details Date Type Department Care Team (Late st Contact Info) Description 08/23/2015 Scanned Document [address] [address] Provider, Generic Social History Tobacco [...] on filedocumented in this encounter Care Teams Flight Simulator Teacher Relationship Specialty Start Date End Date Tommy Handy MD [address] [place] [address] [address] [place] [address] PCP - General 07/20/12 09/24/15 Tamela Dela Cruz APRN [address] [address] PCP - General Internal Medicine 09/25/15 10/02/15 Pcp, No PCP - General General Medicine 10/04/15 10/17/15 Barbara Lobo APRN PCP - General 10/18/15 Tommy Handy MD [address] [address] 07/20/12 documented as of this encounter
--- OUTSIDE RECORDS SUMMARY | 2024-08-26 10:51 | XMS_ITS | Clinical Summary ---
Author Organization [facility] Address [address] [place] [address] Care Team Providers Care Vba Developer Name Role Phone DENY Avery Monika Primary Care Provider [phone] DENY Avery Monika Unavailable [phone] Allergies Active Allergy Reactions Criticality Noted Date Comments Environmental 08/20/2018 Mold 03/06/2020 Nuts 08/20/2018 Paroxetine 11/09/2020 Reactions: Headache Medications Albuterol (PROVENTIL HFA;VENTOLIN HFA) 90 mcg/ACT inhaler INHALE 1 PUFF EVERY 4 HOURS NEEDED. 1 2 019 Active EPINEPHrine (EPIPEN) 0.3 MG/0.3ML injection syringe INJECT 0.3ML IN THE MUSCLE DIRECTED 1 0 019 Active Riboflavin 400 MG Tab TK 1 T PO D 0 019 Active Azelastine HCl 137 MCG/SPRAY Solution USE ONE SPRAY EACH NOSTRIL EVERY 12 HOURS NEEDED FOR CONGESTION 1 5 022 Active Diclofenac Sodium 1 % Gel APPLY SPARINGLY TO AFFECTED AREA(S) ONCE DAILY 0 024 Active Acetaminophen (8 Hour Arthritis Pain) 650 MG 8 hr tablet TAKE 1 TABLET 3-4 TIMES DAILY. 0 024 Active Meloxicam (MOBIC) 15 MG tablet TAKE 1 TABLET BY MOUTH EVERY DAY NEEDED 30 1 024 Active Synthroid 125 MCG tabletIndications:Othe r specified hypothyroidism TAKE 1 TABLET BY MOUTH EVERY DAY PLEASE COMPLETE BLOOD WORK FOR FURTHER REFILLS 90 tablet 1 024 Active Propranolol HCl (INDERAL) 10 MG tablet Take one tablet (10 mg total) by mouth 2 (two) times a day. 180 tablet 3 024 Active montelukast (SINGULAIR) 10 MG tablet TAKE 1 TABLET BY MOUTH EVERY DAY 90 tablet 025 Active Synthroid 125 MCG tablet TAKE ONE TABLET (125 MCG TOTAL) BY MOUTH 1 (ONE) TIME EACH DAY. 90 tablet 3 025 Active Atorvastatin Calcium (LIPITOR) 10 MG tabletIndications:Pure hypercholesterolemia TAKE 1 TABLET BY MOUTH EVERYDAY AT BEDTIME 90 tablet 3 025 Active Atorvastatin Calcium (LIPITOR) 10 MG tabletIndications:Pure hypercholesterolemia TAKE 1 TABLET BY MOUTH EVERYDAY AT BEDTIME 90 tablet 3 024 08/18 Discontinued Levothyroxine Sodium (SYNTHROID, LEVOTHROID) 125 MCG tablet Take one tablet (125 mcg total) by mouth 1 (one) time each day. 90 tablet 3 024 08/18 Discontinued montelukast (SINGULAIR) 10 MG tablet TAKE 1 TABLET BY MOUTH EVERY DAY 90 tablet 024 08/17 Discontinued Active Problems Problem Noted Date Diagnosed Date [...] Back pain 12/10/2018 Bee sting allergy 08/20/2018 [place] allergy 08/20/2018 Hyperlipidemia 06/09/2018 Chronic sinusitis 06/05/2018 Allergic rhinitis 06/05/2018 Elevated liver function tests 05/21/2018 Benign essential hypertension 04/24/2018 Overview (06/16/2023): Transitioned From: Elevated blood pressure reading without diagnosis of hypertension Hypothyroidism 04/24/2018 Migraines 04/24/2018 Overview (06/16/2023): Transitioned From: Headache Encounters Date Type Department Care Team Description 08/18/2024 Refill [facility] [address] [phone] Sydney Avery PA E-prescribing Refill Request 08/17/2024 Refill [facility] [address] [phone] Sydney Avery PA E-prescribing Refill Request from [...] (2 of 2) 01/04/2021 11/09/2020 COVID-19 Vaccine (3 - season) 2024 09/02/2020, 07/21/2020 Influenza (#1) 2024 [...] PM EST FASTING: YES Testing Performed at: [facility], [address] [place] [address], [place] [address], , Bright Cutter: Edith Graves MD CL#[id number] [facility] Final Result [facility] [address] [facility] [place] [address], * XRAY CHEST, 2 VIEWS, PA & LATERAL FC (04/09/2021 11:15 AM EST) IMAGING STUDY Exam: X-ray chest 2 views No infiltrates or pleural effusions. ??No failure or ??fluid overload. ??Operative change lower cervical spine. ??Thoracic spine appears intact. ??Heart size is normal. IMPRESSION: No acute findings Electronically signed by Ty Nelson MD [facility] PHCT CONVERSIONS Anatomical Region Laterality Modality CHEST Radiographic Mary ging 04/09/2021 11:1 5 AM EST us Chidi Davis MD IMG XRAY NO CONTRAST ORDERABLE S Final Result * HEPATITIS PANEL, ACUTE W/REFLEX (06/05/2018 7:48 AM EST) HEPATITIS A IGM NON-REACT SHANIA NON-REACT SHANIA [...] 06/05/2018 7:39 PM EST Testing Performed at: [facility], [address] [place] [address], [place] [address], , Bright Cutter: Mariann Talley MD CL#[id number] us [facility] Final Result PHCT CONVERSIONS * MAMMOGRAM SCREENING , BILATERAL FC (09/03/2017 9:28 AM EDT) BI-RADS CODE BI-RADS Category 2: Continue Routine Screening PHCT CONVERSIONS Anatomical Region Laterality Modality BREAST Bilateral Mammography 09/03/2017 9:28 AM EDT us Php Unknown Prov IMG MAMMO ORDERABLES Final Resu lt from Last 3 Months or Most Recently Relevant to Health Maintenance Care Teams Vba Developer Relationship Specialty Start Date End Date Sydney Avery PA [address] [place] [address] PCP - General 12/16/22 Sydney Avery PA [address] [place] [address] PCP - Backup PCP Family Medicine 06/11/23
--- OUTSIDE RECORDS SUMMARY | 2024-08-26 10:51 | XMS_ITS | Encounter Summary ---
Author Organization [facility] Address [address] [place] [address] Care Team Providers Care Musical Instruments Assembler Name Role Phone DENY Avery Monika Primary Care Provider DENY Avery Monika Unavailable [phone] Encounter Details Date Type Department Care Team (Late st Contact Info) Description 06/21/2023 Orders Only [facility] [address] [place] [address] Sydney Avery PA [address] [place], [place] [address] Medications Social History Tobacco Use Types Packs/Day [...] COTTON Comment: ??CULTURE, URINE, ROUTINE ?Micro Number: ?[id number] ??Test Status: ? Final ??Specimen Source: ?? [...] 5:00 AM EST [facility] Testing performed at: [facility], [address] [place] [address], [id number], Clerical Support: Valerie Denton M.D. [facility] Collection Date/Time: [id number] [facility] Results Received Date/Time: [id number] [facility] Reported Date/Time: [id number] [facility] Final Result Performing Organization Address [facility]/ZIP Co de Phone Number ORCHARD HARVEST [address] [place] [address], * (ABNORMAL) LIPID PANEL WITH REFLEX TO [...] PM EST FASTING: YES Testing Performed at: [facility], [address] [place] [address], [place] [address], , Clerical Support: Edith Graves MD CL#[id number] [facility] Final Result Performing Organization Address [facility]/ZIP Co de Phone Number ORCHARD HARVEST [address] [place] [address], * THYROID STIMULATING HORMONE (TSH) WITH FREE T4 REFLEX, SERUM (06/21/2023 11:29 AM EST) TSH (Thyrotropin) 3.34 0.50 - 4.80 uIU/ml ORCHARD HARVEST 06/21/2023 11:2 9 AM EST 06/21/2023 4:59 PM EST Narrative ORCHARD HARVEST - 06/21/2023 5:33 PM EST Testing Performed at: [facility], [address] [facility], [place] [address], , Clerical Support: Edith Graves MD CL#[id number] [facility] Final Result [facility] [address] [facility] [place] [address], * (ABNORMAL) COMPREHENSIVE METABOLIC PANEL WITH GFR [...] PM EST FASTING: YES Testing Performed at: [facility], [address] [place] [address], , Clerical Support: Edith Graves MD CL#[id number] [facility] Final Result ORCHARD HARVEST [address] [facility] [place] [address], documented in this encounter Visit Diagnoses Diagnosis Urgency of urination Abnormal results of liver function studies Nonspecific abnormal results of liver function study Hypothyroidism, unspecified Hyperlipidemia, unspecified documented in this encounter Care Teams Musical Instruments Assembler Relationship Specialty Start Date End Date Sydney Avery PA [address] [place] [address] PCP - General 12/16/22 Sydney Avery PA [address] [place] [address] PCP - Backup PCP Family Medicine 06/11/23 documented as of this encounter
--- OUTSIDE RECORDS SUMMARY | 2024-08-26 10:51 | XMS_ITS | Encounter Summary ---
Author Organization [facility] Address [address] [place] [address] Care Team Providers Care Boiler Tube Reamer Name Role Phone DENY Avery Monika Primary Care Provider [phone] DENY Avery Monika Unavailable [phone] Reason for Visit * Reason Comments E-prescribing Refill Request Encounter Details Date Type Department Care Team (Late st Contact Info) Description 05/15/2024 [facility] [address] [place] [phone] Sydney Avery PA [address] [place], [place] [address] E-prescribing Refill Request Social History Tobacco Use [...] hypercholesterolemia documented in this encounter Care Teams Boiler Tube Reamer Relationship Specialty Start Date End Date Sydney Avery PA [address] [place] [address] PCP - General 12/16/22 Sydney Avery PA [address] [place] [address] PCP - Backup PCP Family Medicine 06/11/23 documented as of this encounter
== END 2024-08-26 10:01 | disposition home or self-care (01) ==
LOC: HO.HMCFM 09:30
PROVIDERS: PCP Nurse Practitioner Family; Visit Provider Nurse Practitioner Family
DX: E78.00 Pure hypercholesterolemia, unspecified (principal); Z78.0 Asymptomatic menopausal state; E89.0 Postprocedural hypothyroidism; J45.40 Moderate persistent asthma, uncomplicated; R03.0 Elevated blood-pressure reading, without diagnosis of hypertension; Z91.09 Other allergy status, other than to drugs and biological substances; Z98.890 Other specified postprocedural states; Z90.89 Acquired absence of other organs; G43.009 Migraine without aura, not intractable, without status migrainosus

== ENCOUNTER → 2024-08-26 09:29 | Outpatient (BNVA) | payer BC, SELFPAY | PROVIDERS: PCP Nurse Practitioner Family; Visit Provider Nurse Practitioner Family | DX: E89.0 Postprocedural hypothyroidism (principal); E78.00 Pure hypercholesterolemia, unspecified; J45.40 Moderate persistent asthma, uncomplicated; R03.0 Elevated blood-pressure reading, without diagnosis of hypertension; G43.009 Migraine without aura, not intractable, without status migrainosus; Z85.850 Personal history of malignant neoplasm of thyroid; Z78.0 Asymptomatic menopausal state; Z91.09 Other allergy status, other than to drugs and biological substances; Z90.89 Acquired absence of other organs | CPT/HCPCS: 96127 ==

== ENCOUNTER 2024-09-29 13:36 | Outpatient (REF) | payer BC, SELFPAY ==
--- OUTSIDE RECORDS SUMMARY | 2024-09-29 15:19 | XMS_ITS | Encounter Summary ---
Author Organization [facility] Address [address] [place] [address] Care Team Providers Care Supply Tech Name Role Phone DENY Avery Monika Primary Care Provider DENY Avery Monika Unavailable [phone] Encounter Details Date Type Department Care Team (Late st Contact Info) Description 06/21/2023 Orders Only [facility] [address] [place] [address] Sydney Avery PA [address] [place], [place] [address] Medications Social History Tobacco Use Types Packs/Day [...] 138/74(2023 12:37 PM EST) No Jennie Martinez, PARACHUTE PACKER Note: Above is your goal for blood [...] COTTON Comment: ??CULTURE, URINE, ROUTINE ?Micro Number: ?[id number] ??Test Status: ? Final ??Specimen Source: ?? [...] 5:00 AM EST [facility] Testing performed at: [facility], [facility], [address] [place] [address], [phone], Coating Machine Operator: Valerie Denton M.D. [facility] Collection Date/Time: [id number] [facility] Results Received Date/Time: [id number] [facility] Reported Date/Time: [id number] DENY [facility] Final Result Performing Organization Address [facility]/ZIP Co de Phone Number ORCHARD HARVEST [address] [place] [address], * (ABNORMAL) LIPID PANEL WITH REFLEX TO [...] PM EST FASTING: YES Testing Performed at: [facility], [address] [place] [address], [place] [address], , Coating Machine Operator: Edith Graves MD CL#[id number] DENY [facility] Final Result Performing Organization Address [facility]/ZIP Co de Phone Number ORCHARD HARVEST [address] [place] [address], * THYROID STIMULATING HORMONE (TSH) WITH FREE T4 REFLEX, SERUM (06/21/2023 11:29 AM EST) TSH (Thyrotropin) 3.34 0.50 - 4.80 uIU/ml ORCHARD HARVEST 06/21/2023 11:2 9 AM EST 06/21/2023 4:59 PM EST Narrative ORCHARD HARVEST - 06/21/2023 5:33 PM EST Testing Performed at: [facility], [address] [facility], [place] [address], , Coating Machine Operator: Edith Graves MD CL#[id number] DEN[facility] Final Result ORCHARD HARVEST [address] [facility] [place] [address], * (ABNORMAL) COMPREHENSIVE METABOLIC PANEL WITH GFR [...] PM EST FASTING: YES Testing Performed at: [facility], [address] [place] [address], , Coating Machine Operator: Edith Graves MD CL#[id number] [facility] Final Result ORCHARD HARVEST [address] [facility] [place] [address], documented in this encounter Visit Diagnoses Diagnosis Urgency of urination Abnormal results of liver function studies Nonspecific abnormal results of liver function study Hypothyroidism, unspecified Hyperlipidemia, unspecified documented in this encounter Care Teams Supply Tech Relationship Specialty Start Date End Date Sydney Avery PA [address] [place] [address] PCP - General 12/16/22 Sydney Avery PA [address] [place] [address] PCP - Backup PCP Family Medicine 06/11/23 documented as of this encounter
--- OUTSIDE RECORDS SUMMARY | 2024-09-29 15:19 | XMS_ITS | Clinical Summary ---
Author Organization [facility] Address [address] [place] [address] Care Team Providers Care Drawstring Knotter Name Role Phone Lashell, Nuvia Prieto APRN Primary Care Provider [phone] Tommy Handy MD Unavailable Allergies No known [...] Vaccine 12/10/2024 Medical Devices Implanted Type Area Galley Cook Device Identifier Shelf Expiration Date Model / Serial / Lot 55 Mm Plate Medtronic # [id number] Implanted:Qty : 1 on 10/18/2015 by Se Floyd MD at [facility] Plate N/A: Spine Cervical [employer] MINIMALLY INVASIVE T [id number] / / Description:cervical Lordotic Sr Cortical Block [id number] Implanted:Qty : 1 on 10/18/2015 by Se Floyd MD at [facility] Spine N/A: Spine Cervical [employer] 07/25/2018 [id number] / [id number] / [id number] Lordotic Sr Cortical Block [id number] Implanted:Qty : 1 on 10/18/2015 by Se Floyd MD at [facility] Spine N/A: Spine Cervical [employer] 07/25/2018 [id number] / [id number] / [id number] Lordotic Sr Cortical Block [id number] Implanted:Qty : 1 on 10/18/2015 by Se Floyd MD at [facility] Spine N/A: Spine Cervical [employer] 06/21/2018 [id number] / [id number] / [id number] Graft Bone Grftn Dbm 1ml Putty Jar - [id number] Implanted:Qty : 1 on 10/18/2015 by Se Floyd MD at [facility] Tissue [employer] 03/29/2018 [id number] / [id number] / 3.5x15mm Vasd Screw Implanted:Qty : 1 on 10/18/2015 by Se Floyd MD at [facility] N/A: Spine Cervical [employer] MINIMALLY INVASIVE T [id number] / / Insurance [facility] [id number] [place] [address] Advance Directives * Full Code (Latest Code Status on File) Date Activated Date Inactivated Comments 10/18/2015 6:16 PM 10/20/2015 5:34 PM Care Teams Drawstring Knotter Relationship Specialty Start Date End Date LashellNuvia APRN PCP - General 10/18/15 Tommy Handy MD [address] [place] [address] 07/20/12
--- OUTSIDE RECORDS SUMMARY | 2024-09-29 15:19 | XMS_ITS | Encounter Summary ---
Author Organization [facility] Address [address] [place] [address] Care Team Providers Care Economics Department Chair Name Role Phone Barbara Lobo Conner MITCHELL Primary Care Provider Tommy Handy MD Unavailable Encounter Details Date Type Department Care Team (Late st Contact Info) Description 08/06/2020 12:41 PM EDT Hospital Encounter [facility] [address] [place] [address] Mikey Corado MD [address] [place] [address] Social History Tobacco Use Types Packs/Day Years [...] on filedocumented in this encounter Care Teams Economics Department Chair Relationship Specialty Start Date End Date LashellBarbara APRN PCP - General 10/18/15 Tommy Handy MD [address] [address] 07/20/12 documented as of this encounter
--- OUTSIDE RECORDS SUMMARY | 2024-09-29 15:19 | XMS_ITS | Encounter Summary ---
Author Organization [facility] Address [address] [place] [address] Care Team Providers Care Reproductive Surgeon Name Role Phone DENY Avery Monika Primary Care Provider [phone] DENY Avery Monika Unavailable [phone] Reason for Visit * Reason Comments E-prescribing Refill Request Encounter Details Date Type Department Care Team (Late st Contact Info) Description [facility] [address] [place] [phone] Sydney Avery PA [address] [place], [place] [address] E-prescribing Refill Request Social History Tobacco Use [...] hypercholesterolemia documented in this encounter Care Teams Reproductive Surgeon Relationship Specialty Start Date End Date Sydney Avery PA [address] [place] [address] PCP - General 12/16/22 Sydney Avery PA [address] [place] [address] PCP - Backup PCP Family Medicine 06/11/23 documented as of this encounter
--- OUTSIDE RECORDS SUMMARY | 2024-09-29 15:19 | XMS_ITS | Encounter Summary ---
Author Organization [facility] Address [address] [place], [place] [address] Care Team Providers Care Health Companion Name Role Phone Tamela Dela Cruz APRN Primary Care Provider Riri ray Pcp, No Primary Care Provider Barbara Lucero APRN Primary Care Provider Tommy Handy MD Unavailable Encounter Details Date Type Department Care Team (Late st Contact Info) Description 09/27/2015 Scanned Document [address] [address] Provider, Generic Social History Tobacco [...] on filedocumented in this encounter Care Teams Health Companion Relationship Specialty Start Date End Date Tamela Dela Cruz APRN PCP - General Internal Medicine 09/25/15 10/02/15 Pcp, No PCP - General General Medicine 10/04/15 10/17/15 Barbara Lobo APRN PCP - General 10/18/15 Tommy Handy MD [address] [place] [address] 07/20/12 documented as of this encounter
--- OUTSIDE RECORDS SUMMARY | 2024-09-29 15:19 | XMS_ITS | Encounter Summary ---
Author Organization [facility] Address [address] [place] [address] Care Team Providers Care Program Director/Traffic Director Name Role Phone Pcp, Latoya Primary Care Provider Barbara Lucero APRN Primary Care Provider Tommy Handy MD Unavailable Encounter Details Date Type Department Care Team (Late st Contact Info) Description 10/12/2015 Scanned Document [facility] [place] [address] [place] [address] Se Floyd MD 85 [facility] [address] [place] [address] Social History Tobacco Use Types Packs/Day Years [...] filedocumented in this encounter Care Teams Program Director/Traffic Director Relationship Specialty Start Date End Date Pcp, Latoya PCP - General General Medicine 10/04/15 10/17/15 Barbara Lobo APRN PCP - General 10/18/15 Tommy Handy MD [address] [place] [address] 07/20/12 documented as of this encounter
--- OUTSIDE RECORDS SUMMARY | 2024-09-29 15:19 | XMS_ITS | Encounter Summary ---
Author Organization [facility] Address [address] [place] [address] Care Team Providers Care Automobile Taillight Assembler Name Role Phone Tamela Dela Cruz APRN Primary Care Provider Riri ray Pcp, No Primary Care Provider Barbara Lucero APRN Primary Care Provider [phone] Tommy Handy MD Unavailable Encounter Details Date Type Department Care Team (Late st Contact Info) Description 10/02/2015 Prep for Surgery [facility] [place] [address] [place] [address] Se Floyd MD [address] [address] Social History Tobacco Use Types Packs/Day Years [...] on filedocumented in this encounter Care Teams Automobile Taillight Assembler Relationship Specialty Start Date End Date Tamela Dela Cruz APRN PCP - General Internal Medicine 09/25/15 10/02/15 Pcp, No PCP - General General Medicine 10/04/15 10/17/15 Barbara Lobo APRN PCP - General 10/18/15 Tommy Handy MD [address] [address] 07/20/12 documented as of this encounter
--- OUTSIDE RECORDS SUMMARY | 2024-09-29 15:19 | XMS_ITS | Encounter Summary ---
Author Organization [facility] Address [address] [place] [address] Care Team Providers Care Bread Stacker Name Role Phone Tommy Handy MD Primary Care Provider [phone] Tamela Dela Cruz APRN Primary Care Provider Riri ray Pcp, No Primary Care Provider UnavailBarbara Lopez APRN Primary Care Provider [phone] Tommy Handy MD Unavailable Encounter Details Date Type Department Care Team (Late st Contact Info) Description 08/23/2015 Scanned Document [address] [address] Provider, Generic Social History Tobacco [...] on filedocumented in this encounter Care Teams Bread Stacker Relationship Specialty Start Date End Date Tommy Handy MD [address] [place] [address] [address] [place] [address] PCP - General 07/20/12 09/24/15 Tamela Dela Cruz APRN [address] [address] PCP - General Internal Medicine 09/25/15 10/02/15 Pcp, No PCP - General General Medicine 10/04/15 10/17/15 Barbara Lobo APRN PCP - General 10/18/15 Tommy Handy MD [address] [address] 07/20/12 documented as of this encounter
--- OUTSIDE RECORDS SUMMARY | 2024-09-29 15:19 | XMS_ITS | Clinical Summary ---
Author Organization [facility] Address [address] [place] [address] Care Team Providers Care Telephone Advice Nurse Name Role Phone DENY Avery Monika Primary Care Provider [phone] DENY Avery Monika Unavailable [phone] Allergies Active Allergy Reactions Criticality Noted Date [...] Back pain 12/10/2018 Bee sting allergy 08/20/2018 [place] allergy 08/20/2018 Hyperlipidemia 06/09/2018 Chronic sinusitis 06/05/2018 Allergic rhinitis 06/05/2018 Elevated liver function tests 05/21/2018 Benign essential hypertension 04/24/2018 Overview (06/16/2023): Transitioned From: Elevated blood pressure reading without diagnosis of hypertension Hypothyroidism 04/24/2018 Migraines 04/24/2018 Overview (06/16/2023): Transitioned From: Headache Encounters Date Type Department Care Team Description 08/18/2024 Refill [facility] [address] [phone] Sydney Avery PA E-prescribing Refill Request 08/17/2024 Refill [facility] [address] [phone] Sydney Avery PA E-prescribing Refill Request from [...] TO DIRECT LDL (06/21/2023 11:29 AM EST) [facility] Cholesterol 319(H) 0 - 199 mg/dL ORCHARD [...] PM EST FASTING: YES Testing Performed at: [facility], [address] [place] [address], , Product Owner: Edith Graves MD CL#[id number] [facility] Final Result [facility]ARD [facility] [address] [facility] [place] [address], [place] [phone] * XRAY CHEST, 2 VIEWS, PA & LATERAL FC (04/09/2021 11:15 AM EST) [facility] IMAGING STUDY Exam: X-ray chest 2 views No infiltrates or pleural effusions. ??No failure or ??fluid overload. ??Operative change lower cervical spine. ??Thoracic spine appears intact. ??Heart size is normal. IMPRESSION: No acute findings Electronically signed by Ty Nelson MD [facility] CONVERSIONS Anatomical Region Laterality Modality CHEST [...] 06/05/2018 7:39 PM EST Testing Performed at: [facility], [address] [place] [address], , Product Owner: Mariann Talley MD CL#[id number] us [facility] Final Result PHCT CONVERSIONS * MAMMOGRAM SCREENING , BILATERAL FC (09/03/2017 9:28 AM EDT) BI-RADS CODE BI-RADS Category 2: Continue Routine Screening PHCT CONVERSIONS Anatomical Region Laterality Modality BREAST Bilateral Mammography 09/03/2017 9:28 AM EDT us Php Unknown Prov IMG MAMMO ORDERABLES Final Resu lt from Last 3 Months or Most Recently Relevant to Health Maintenance Care Teams Telephone Advice Nurse Relationship Specialty Start Date End Date Sydney Avery PA [address] [id number] PCP - General 12/16/22 Sydney Avery PA [address] [place] [address] PCP - Backup PCP Family Medicine 06/11/23
--- OUTSIDE RECORDS SUMMARY | 2024-09-29 15:19 | XMS_ITS | Encounter Summary ---
Author Organization [facility] Address [address] [place] [address] Care Team Providers Care Section Leader Name Role Phone LashellBarbara parker Conner MITCHELL Primary Care Provider [phone] Tommy Handy MD Unavailable Encounter Details Date Type Department Care Team (Late st Contact Info) Description 01/22/2023 10:03 AM EDT Hospital Encounter [facility] [address] [place] [phone] Leidy Mendoza PA-C [address] [place] [address] Social History Tobacco Use Types Packs/Day Years [...] on filedocumented in this encounter Care Teams Section Leader Relationship Specialty Start Date End Date LashellBarbara APRN PCP - General 10/18/15 Tommy Handy MD 710 [facility] [address] [place] [address] 07/20/12 documented as of this encounter
--- OUTSIDE RECORDS SUMMARY | 2024-09-29 15:19 | XMS_ITS | Encounter Summary ---
Author Organization [facility] Address [address] [place] [address] Care Team Providers Care Stakes Player Name Role Phone Tommy Handy MD Primary Care Provider [phone] Tamela Dela Cruz APRN Primary Care Provider Riri ray Pcp, No Primary Care Provider UnavailBarbara Lopez APRN Primary Care Provider [phone] Tommy Handy MD Unavailable Encounter Details Date Type Department Care Team (Late st Contact Info) Description 05/29/2015 Scanned Document [address] [phone] Provider, Generic Social History Tobacco [...] on filedocumented in this encounter Care Teams Stakes Player Relationship Specialty Start Date End Date Tommy Handy MD [address] [place] [address] PCP - General 07/20/12 09/24/15 Tamela Dela Cruz APRN [address] [place] [address] PCP - General Internal Medicine 09/25/15 10/02/15 Pcp, Latoya PCP - General General Medicine 10/04/15 10/17/15 Barbara Lobo APRN PCP - General 10/18/15 Tommy Handy MD [address] [place] [address] 07/20/12 documented as of this encounter
[2024-09-29 16:05] LABS: Lipase 40 U/L (8-78)
[2024-09-29 16:42] LABS: Folate 9.4 ng/mL (> or = 4.0); Vitamin B12 449 pg/mL (200-900)
[2024-09-30 16:04] LABS: Transglutaminase Ab IgG <1.0 U/mL; Transglutaminase IgA <1.0 U/mL
[2024-10-01 14:40] LABS: H Pylori Breath Test Negative (Negative)
[2024-10-03 16:43] LABS: Vitamin D 25-OH, D2 4 ng/mL; Vitamin D 25-OH, D3 28 ng/mL; Vitamin D 25-OH, Total 32 ng/mL (30-100)
== END 2024-09-29 13:37 | disposition home or self-care (01) ==
LOC: HO.LAB 13:36
PROVIDERS: PCP Nurse Practitioner Family; Visit Provider Nurse Practitioner Family
DX: R14.0 Abdominal distension (gaseous) (principal); R19.8 Other specified symptoms and signs involving the digestive system and abdomen; K21.9 Gastro-esophageal reflux disease without esophagitis; R10.13 Epigastric pain; R19.7 Diarrhea, unspecified; E55.9 Vitamin D deficiency, unspecified
CPT/HCPCS: 36415; 82306; 82607; 82746; 83013; 83690; 86364

== ENCOUNTER 2024-09-29 13:36 | Outpatient (AMB) | payer BC, SELFPAY ==
--- NOTE | 2024-09-29 13:40 | A.OFFVIS_ITS ---
Vital Signs 09/29/24 14:06 Height 5 ft 2 in Weight 165 lb BMI 30.2 BP 146/84 H Blood Pressure Location Rt brachial Position Sitting Pulse 88 Pulse Source Pulse Oximeter Pulse Oximetry (%) 96 Oxygen Delivery Method Room Air Intake Visit Reasons: [place] screening, symptomatic (Abd pain) Intake Note: NEW PATIENT for initial colo screening + eval of sx. CC: C.O. intermittent constipation and diarrhea, with avg BM typically 5-7 days. Pt also reports having intermittent BRB per rectum and occasional black stools. Pt sometimes has pain so severe that it will wake her up at night. Pt also reports GERD with similar onset time frame. Pt has had prev colo - 2009 colo w/ polyps [place] [employer]. Security Guard Dispatcher Required: No Accompanied by: Self / Same As Patient Allergies bee venom protein (honey bee) Allergy (Severe, Verified 09/29/24 13:58) Anaphylaxis tree nut Allergy (Severe, Verified 09/29/24 13:58) Anaphylaxis HPI HPI [place] screening, symptomatic (Abd pain): Details: 59-year-old female with past medical history of obesity, thyroidectomy, migraine, history of thyroid cancer, insomnia, anxiety, hypercholesteremia, asthma is here today for initial consultation. Patient was sent to us by her PCP. Patient's father was diagnosed with CRC in his 50s. Patient denies any issues with anesthesia in the past. Patient reports occasional diarrhea then constipation for several days. Sometimes no BM for 5 days. Patient reports occasional blood in her stool and occasional black stool.. Reports acid reflux and dyspepsia without dysphagia or odynophagia. 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 Cognitive needs: No Hearing needs: No Vision needs: Yes Review of Systems Const Denies weight gain and Denies weight loss ENT Reports no additional complaints, Denies dysphagia and Denies odynophagia Card Reports no additional complaints Resp Reports no additional complaints GI Reports abdominal pain (epigastric pain night time all and lower abdominal pain), Denies belching, Denies melena, Reports bloating, Reports hematochezia (And occasional melena), Denies change in bowel habits, Reports tenesmus (ocass adolph), Reports constipation, Denies dysphagia, Reports excessive flatus, Reports dyspepsia, Reports heartburn, Denies diarrhea, Reports loose stools, Reports nausea, Denies odynophagia and Denies vomiting Reports no additional complaints Musc Reports no additional complaints Neuro Reports no additional complaints Psych Reports no additional complaints Endo Reports no additional complaints Physical Exam Vital Signs: Last Vital Signs Pulse 88 09/29/24 14:06 BP 146/84 H 09/29/24 14:06 Pulse Ox 96 09/29/24 14:06 Oxygen Delivery Method Room Air 09/29/24 14:06 BMI result Body Mass Index 30.2 Const General: healthy appearing, no acute distress and well developed Nutritional Appearance: well nourished and obese Orientation/consciousness: patient oriented x3 Resp Effort & Inspection: normal respiratory effort, able to speak in complete sentences, no tracheal deviation and symmetric chest movement Auscultation: clear to auscultation bilaterally Cardio Rate: regular rate GI Inspection: Yes normal to inspection, No distended and Yes obesity Palpation (GI): Soft to palpation, not firm, nontender and No hepatosplenomegaly present Auscultation: normal bowel sounds General: Yes no CVA tenderness Back/Spine/Pelvis Back: no CVA tenderness Skin General skin exam: elasticity normal, turgor normal and dry skin Neuro General: patient oriented x3 Psych Appearance: grossly normal Mental Status: mental status grossly normal Assessment & Plan Assessment & Plan (1) Abdominal bloating: Code(s): R14.0 - Abdominal distension (gaseous) Category: Medical (2) Alternating constipation and diarrhea: Code(s): R19.8 - Other specified symptoms and signs involving the digestive system and abdomen Category: Medical (3) Colon cancer screening: Code(s): Z12.11 - Encounter for screening for malignant neoplasm of colon Category: Medical (4) Postprandial abdominal bloating: Code(s): R14.0 - Abdominal distension (gaseous) (5) GERD (gastroesophageal reflux disease): Code(s): K21.9 - Gastro-esophageal reflux disease without esophagitis Qualifiers: Esophagitis presence: esophagitis presence not specified Qualified Code(s): K21.9 - Gastro-esophageal reflux disease without esophagitis (6) Postprandial epigastric pain: Code(s): R10.13 - Epigastric pain Plan Will check transglutaminase, vitamin B12, folate, vitamin-D level as well as lipase and H pylori testing. Will treat empirically if positive. Patient will be sent for upper GI with barium swallow. We will discuss going for colonoscopy and endoscopy today as well. Patient denies any issues with anesthesia in the past. Family history of CRC. Patient was encouraged to try to take fiber every day. May take Dulcolax to help her empty her bowels better. Patient will start taking pantoprazole daily. Avoid dietary triggers and late night snacking. Staying upright for minimum 3 hours after meals discussed with patient. What to expect before during and after the procedure discussed with patient. Stressed the importance of good bowel prep and clear liquid diet day before procedure. Patient will be seen after the procedure, sooner on as needed basis. She is agreeable to this plan and verbalizes understanding of instructions. She was given the opportunity to ask questions and all questions answered. Thank you for allowing me to participate in her care Orders: Orders Transglutaminase IgA 09/29/24 R10.9 - Unspecified abdominal pain [place] upper GI w Ba Swallow 09/29/24 K21.9 - Gastro-esophageal reflux disease without esophagitis Transglutaminase Ab IgG 09/29/24 R10.9 - Unspecified abdominal pain Vitamin B12 and Folate 09/29/24 R19.7 - Diarrhea, unspecified Vitamin D 25-OH (D2 and D3) 09/29/24 E55.9 - Vitamin D deficiency, unspecified Lipase 09/29/24 R10.9 - Unspecified abdominal pain H Pylori Breath Test 09/29/24 K21.9 - Gastro-esophageal reflux disease without esophagitis Medications: New bisacodyl (Dulcolax (bisacodyl)) 10 mg (2 x 5 mg) PO BEDTIME 180 tabs 4RF polyethylene glycol 3350 (Miralax) As directed by gastroenterology department at [facility] 238 grams PO ONCE 238 grams 0RF Z12.11 - Encounter for screening for malignant neoplasm of colon pantoprazole take one tablet half an hour before breakfast 40 mg PO DAILY 30 tabs 2RF K21.9 - Gastro-esophageal reflux disease without esophagitis Coding Level of Care Code New Pt Level 4 ([address]) Diagnoses Abdominal bloating R14.0 Alternating constipation and diarrhea R19.8 Colon cancer screening Z12.11 Postprandial abdominal bloating R14.0 Gastroesophageal reflux disease, unspecified whether esophagitis present K21.9 Esophagitis presence: esophagitis presence not specified Postprandial epigastric pain R10.13 Time Spent (min) 45 Comment 35 minutes spent with patient and additional 10 minutes spent reviewing her records
[2024-09-29 14:06] VITALS: BP 146/84; PULSE 88; O2SAT 96; BMI 30.2
--- OUTSIDE RECORDS SUMMARY | 2024-09-29 14:08 | XMS_ITS | Encounter Summary ---
Author Organization [facility] Address [address] [place], [place] [id number] Care Team Providers Care Retail Sales Merchandiser Name Role Phone Tamela Dela Cruz APRN Primary Care Provider Riri ray Pcp, No Primary Care Provider Barbara Lucero APRN Primary Care Provider [phone] Tommy Handy MD Unavailable Encounter Details Date Type Department Care Team (Late st Contact Info) Description 09/27/2015 Scanned Document [address] [address] Provider, Generic Social History Tobacco [...] on filedocumented in this encounter Care Teams Retail Sales Merchandiser Relationship Specialty Start Date End Date Tamela Dela Cruz APRN PCP - General Internal Medicine 09/25/15 10/02/15 Pcp, No PCP - General General Medicine 10/04/15 10/17/15 Barbara Lobo APRN PCP - General 10/18/15 Tommy Handy MD [address] [place] [address] 07/20/12 documented as of this encounter
--- OUTSIDE RECORDS SUMMARY | 2024-09-29 14:08 | XMS_ITS | Encounter Summary ---
Author Organization [facility] Address [address] [place] [address] Care Team Providers Care Tool Dispatcher Name Role Phone DENY Avery Monika Primary Care Provider [phone] DENY Avery Monika Unavailable [phone] Reason for Visit * Reason Comments E-prescribing Refill Request Encounter Details Date Type Department Care Team (Late st Contact Info) Description 05/15/2024 [facility] [address] [place] [phone] Sydney Avery PA [address] [place], [place] [address] E-prescribing Refill Request Social History Tobacco Use [...] hypercholesterolemia documented in this encounter Care Teams Tool Dispatcher Relationship Specialty Start Date End Date Sydney Avery PA [address] [place] [address] PCP - General 12/16/22 Sydney Avery PA [address] [place] [address] PCP - Backup PCP Family Medicine 06/11/23 documented as of this encounter
--- OUTSIDE RECORDS SUMMARY | 2024-09-29 14:09 | XMS_ITS | Encounter Summary ---
Author Organization [facility] Address [address] [place] [address] Care Team Providers Care Infertility Medical Assistant Name Role Phone LashellBarbara parker Conner MITCHELL Primary Care Provider [phone] Tommy Handy MD Unavailable Encounter Details Date Type Department Care Team (Late st Contact Info) Description 01/22/2023 10:03 AM EDT Hospital Encounter [facility] [address] [place] [phone] Leidy Mendoza PA-C [address] [place] [address] Social History Tobacco Use Types Packs/Day Years [...] on filedocumented in this encounter Care Teams Infertility Medical Assistant Relationship Specialty Start Date End Date LashellBarbara APRN PCP - General 10/18/15 Tommy Handy MD [address] [facility] [address] [place] [address] 07/20/12 documented as of this encounter
--- OUTSIDE RECORDS SUMMARY | 2024-09-29 14:09 | XMS_ITS | Encounter Summary ---
Author Organization [facility] Address [address] [place] [address] Care Team Providers Care Sap Gatherer Name Role Phone DENY Avery Monika Primary Care Provider [phone] DENY Avery Monika Unavailable [phone] Encounter Details Date Type Department Care Team (Late st Contact Info) Description 06/21/2023 Orders Only [facility] [address] [place] [address] Sydney Avery PA [address] [place], [place] [address] Medications Social History Tobacco Use Types Packs/Day [...] 138/74(2023 12:37 PM EST) No Jennie Martinez, IMCU SPECIALIST Note: Above is your goal for blood [...] COTTON Comment: ??CULTURE, URINE, ROUTINE ?Micro Number: ?[id number] ??Test Status: ? Final ??Specimen Source: ?? [...] 5:00 AM EST [facility] Testing performed at: [facility], [facility], [address] [place] [address], [id number], Internal Communications Intern: Valerie Denton M.D. [facility] Collection Date/Time: [id number] [facility] Results Received Date/Time: [id number] [facility] Reported Date/Time: [id number] [facility] Final Result Performing Organization Address [facility]/ZIP Co de Phone Number ORCHARD HARVEST [address] [place] [address], * (ABNORMAL) LIPID PANEL WITH REFLEX TO [...] PM EST FASTING: YES Testing Performed at: [facility], [address] [place] [address], [place] [address], , Internal Communications Intern: Edith Graves MD CL#[id number] [facility] Final Result Performing Organization Address [facility]/ZIP Co de Phone Number ORCHARD HARVEST [address] [place] [address], * THYROID STIMULATING HORMONE (TSH) WITH FREE T4 REFLEX, SERUM (06/21/2023 11:29 AM EST) TSH (Thyrotropin) 3.34 0.50 - 4.80 uIU/ml ORCHARD HARVEST 06/21/2023 11:2 9 AM EST 06/21/2023 4:59 PM EST Narrative ORCHARD HARVEST - 06/21/2023 5:33 PM EST Testing Performed at: [facility], [address] [facility], [place] [address], , Internal Communications Intern: Edith Graves MD CL#[id number] DEN[facility] Final Result ORCHARD HARVEST [address] [facility] [place] [address], * (ABNORMAL) COMPREHENSIVE METABOLIC PANEL WITH GFR [...] PM EST FASTING: YES Testing Performed at: [facility], [address] [place] [address], , Internal Communications Intern: Edith Graves MD CL#[id number] [facility] Final Result ORCHARD HARVEST [address] [place] [address], documented in this encounter Visit Diagnoses Diagnosis Urgency of urination Abnormal results of liver function studies Nonspecific abnormal results of liver function study Hypothyroidism, unspecified Hyperlipidemia, unspecified documented in this encounter Care Teams Sap Gatherer Relationship Specialty Start Date End Date Sydney Avery PA [address] [place] [address] PCP - General 12/16/22 Sydney Avery PA [address] [place] [address] PCP - Backup PCP Family Medicine 06/11/23 documented as of this encounter
--- OUTSIDE RECORDS SUMMARY | 2024-09-29 14:09 | XMS_ITS | Clinical Summary ---
Author Organization [facility] Address [address] [place] [address] Care Team Providers Care S3B Multi Sensor Operator Name Role Phone Lashell, Nuvia Prieto APRN Primary Care Provider [phone] Tommy Handy MD Unavailable Allergies No known [...] Zoster (Shingles) Vaccine (1 of 2) 09/23/2017 COVID-19 Vaccine (5 - 2023-2 5 season) 2024 05/22/2021, 09/30/2020, 09/02/2020, Additional history exists Influenza Vaccine 12/10/2024 Medical Devices Implanted Type Area Industrial Retrofit Designer Device Identifier Shelf Expiration Date Model / Serial / Lot 55 Mm Plate Medtronic # [id number] Implanted:Qty : 1 on 10/18/2015 by Se Floyd MD at [facility] Plate N/A: Spine Cervical [employer] MINIMALLY INVASIVE T [id number] / / Description:cervical Lordotic Sr Cortical Block [id number] Implanted:Qty : 1 on 10/18/2015 by Se Floyd MD at [facility] Spine N/A: Spine Cervical [employer] 07/25/2018 [id number] / [id number] / [id number] Lordotic Sr Cortical Block [id number] Implanted:Qty : 1 on 10/18/2015 by Se Floyd MD at [facility] Spine N/A: Spine Cervical [employer] 07/25/2018 [id number] / [id number] / [id number] Lordotic Sr Cortical Block [id number] Implanted:Qty : 1 on 10/18/2015 by Se Floyd MD at [facility] Spine N/A: Spine Cervical [employer] 06/21/2018 [id number] / [id number] / [id number] Graft Bone Grftn Dbm 1ml Putty Jar - [id number] Implanted:Qty : 1 on 10/18/2015 by Se Floyd MD at [facility] Tissue [employer] 03/29/2018 [id number] / [id number] / 3.5x15mm Vasd Screw Implanted:Qty : 1 on 10/18/2015 by Se Floyd MD at [facility] N/A: Spine Cervical [employer] MINIMALLY INVASIVE T [id number] / / Insurance [facility] [id number] [place] [address] Advance Directives * Full Code (Latest Code Status on File) Date Activated Date Inactivated Comments 10/18/2015 6:16 PM 10/20/2015 5:34 PM Care Teams S3B Multi Sensor Operator Relationship Specialty Start Date End Date LashellNuvia APRN PCP - General 10/18/15 Tommy Handy MD [address] [place] [address] 07/20/12
--- OUTSIDE RECORDS SUMMARY | 2024-09-29 14:09 | XMS_ITS | Encounter Summary ---
Author Organization [facility] Address [address] [place] [address] Care Team Providers Care Analytical Scientist Name Role Phone Tamela Dela Cruz APRN Primary Care Provider Riri ray Pcp, No Primary Care Provider Barbara Lucero APRN Primary Care Provider [phone] Tommy Handy MD Unavailable Encounter Details Date Type Department Care Team (Late st Contact Info) Description 10/02/2015 Prep for Surgery [facility] [place] [address] [place] [address] Se Floyd MD [address] [address] Social History Tobacco Use Types Packs/Day Years [...] on filedocumented in this encounter Care Teams Analytical Scientist Relationship Specialty Start Date End Date Tamela Dela Cruz APRN PCP - General Internal Medicine 09/25/15 10/02/15 Pcp, No PCP - General General Medicine 10/04/15 10/17/15 Barbara Lobo APRN PCP - General 10/18/15 Tommy Handy MD [address] [address] 07/20/12 documented as of this encounter
--- OUTSIDE RECORDS SUMMARY | 2024-09-29 14:09 | XMS_ITS | Encounter Summary ---
Author Organization [facility] Address [address] [place] [address] Care Team Providers Care Civil Geotechnical Engineer Name Role Phone Tommy Handy MD Primary Care Provider [phone] Tamela Dela Cruz APRN Primary Care Provider Riri ray Pcp, No Primary Care Provider UnavailBarbara Lopez APRN Primary Care Provider [phone] Tommy Handy MD Unavailable Encounter Details Date Type Department Care Team (Late st Contact Info) Description 08/23/2015 Scanned Document [address] [address] Provider, Generic Social History Tobacco [...] on filedocumented in this encounter Care Teams Civil Geotechnical Engineer Relationship Specialty Start Date End Date Tommy Handy MD [address] [place] [address] [address] [place] [address] PCP - General 07/20/12 09/24/15 Tamela Dela Cruz APRN [address] [address] PCP - General Internal Medicine 09/25/15 10/02/15 Pcp, No PCP - General General Medicine 10/04/15 10/17/15 Barbara Lobo APRN PCP - General 10/18/15 Tommy Handy MD [address] [address] 07/20/12 documented as of this encounter
--- OUTSIDE RECORDS SUMMARY | 2024-09-29 14:09 | XMS_ITS | Encounter Summary ---
Author Organization [facility] Address [address] [place] [address] Care Team Providers Care Congressional District Aide Name Role Phone Pcp, Latoya Primary Care Provider Barbara Lucero APRN Primary Care Provider Tommy Handy MD Unavailable Encounter Details Date Type Department Care Team (Late st Contact Info) Description 10/12/2015 Scanned Document [facility] [place] [address] [place] [address] Se Floyd MD 85 [facility] [address] [place] [address] Social History Tobacco Use Types Packs/Day Years [...] on filedocumented in this encounter Care Teams Congressional District Aide Relationship Specialty Start Date End Date Pcp, Latoya PCP - General General Medicine 10/04/15 10/17/15 Barbara Lobo APRN PCP - General 10/18/15 Tommy Handy MD [address] [place] [address] 07/20/12 documented as of this encounter
--- OUTSIDE RECORDS SUMMARY | 2024-09-29 14:09 | XMS_ITS | Encounter Summary ---
Author Organization [facility] Address [address] [place] [address] Care Team Providers Care Bindery Cutter Operator Name Role Phone Barbara Lobo Conner MITCHELL Primary Care Provider Tommy Handy MD Unavailable Encounter Details Date Type Department Care Team (Late st Contact Info) Description 08/06/2020 12:41 PM EDT Hospital Encounter [facility] [address] [place] [address] Mikey Corado MD [address] [place] [address] Social History Tobacco Use Types Packs/Day Years [...] on filedocumented in this encounter Care Teams Bindery Cutter Operator Relationship Specialty Start Date End Date LashellBarbara APRN PCP - General 10/18/15 Tommy Handy MD [address] [address] 07/20/12 documented as of this encounter
--- OUTSIDE RECORDS SUMMARY | 2024-09-29 14:09 | XMS_ITS | Encounter Summary ---
Author Organization [facility] Address [address] [place] [address] Care Team Providers Care Band Presser Name Role Phone Tommy Handy MD Primary Care Provider [phone] Tamela Dela Cruz APRN Primary Care Provider Riri ray Pcp, No Primary Care Provider UnavailBarbara Lopez APRN Primary Care Provider Tommy Handy MD Unavailable Encounter Details Date Type Department Care Team (Late st Contact Info) Description 05/29/2015 Scanned Document [address] [place] [address] [address] Provider, Generic Social History Tobacco [...] on filedocumented in this encounter Care Teams Band Presser Relationship Specialty Start Date End Date Tommy Handy MD [address] [place] [address] PCP - General 07/20/12 09/24/15 Tamela Dela Cruz APRN [address] [place] [address] PCP - General Internal Medicine 09/25/15 10/02/15 Pcp, Latoya PCP - General General Medicine 10/04/15 10/17/15 Barbara Lobo APRN PCP - General 10/18/15 Tommy Handy MD [address] [place] [address] 07/20/12 documented as of this encounter
--- OUTSIDE RECORDS SUMMARY | 2024-09-29 14:09 | XMS_ITS | Clinical Summary ---
Author Organization [facility] Address [address] [place] [address] Care Team Providers Care Sports Reporter Name Role Phone DENY Avery Monika Primary Care Provider [phone] DENY Avery Monika Unavailable [phone] Allergies Active Allergy Reactions Criticality Noted Date [...] REFILLS 90 tablet 1 06/24/19 24 Active Propranolol HCl (INDERAL) 10 MG tablet Take one tablet (10 mg total) by mouth 2 (two) times a day. 180 tablet 3 10/09/19 24 Active montelukast (SINGULAIR) 10 MG tablet TAKE 1 TABLET BY MOUTH EVERY DAY 90 tablet 08/18/19 25 Active Synthroid 125 MCG tablet TAKE ONE TABLET (125 MCG TOTAL) BY MOUTH 1 (ONE) TIME EACH DAY. 90 tablet 3 08/19/19 25 Active Atorvastatin Calcium (LIPITOR) 10 MG tabletIndications:Pure hypercholesterolemia TAKE 1 TABLET BY MOUTH EVERYDAY AT BEDTIME 90 tablet 3 08/19/19 25 Active Active Problems Problem Noted Date Diagnosed [...] Back pain 12/10/2018 Bee sting allergy 08/20/2018 [place] allergy 08/20/2018 Hyperlipidemia 06/09/2018 Chronic sinusitis 06/05/2018 Allergic rhinitis 06/05/2018 Elevated liver function tests 05/21/2018 Benign essential hypertension 04/24/2018 Overview (06/16/2023): Transitioned From: Elevated blood pressure reading without diagnosis of hypertension Hypothyroidism 04/24/2018 Migraines 04/24/2018 Overview (06/16/2023): Transitioned From: Headache Encounters Date Type Department Care Team Description 08/18/2024 Refill [facility] [address] [phone] Sydney Avery PA E-prescribing Refill Request 08/17/2024 Refill [facility] [address] [phone] Sydney Avery PA E-prescribing Refill Request from [...] 2) 01/04/2021 11/09/2020 COVID-19 Vaccine (3 - 2023- season) 2024 09/02/2020, 07/21/2020 Influenza (#1) 2024 [...] 138/74(2023 12:37 PM EST) No Jennie Martinez, EDUAR VALERIO Note: Above is your goal for blood [...] TO DIRECT LDL (06/21/2023 11:29 AM EST) [facility] Cholesterol 319(H) 0 - 199 mg/dL ORCHARD [...] PM EST FASTING: YES Testing Performed at: [facility], [address] [place] [address], , Deep Fat Cook Fry: Edith Graves MD CL#[id number] DENY [facility] Final Result ORCHARD HARVEST [address] [facility] [place] [address], [place] [phone] * XRAY CHEST, 2 VIEWS, PA & LATERAL FC (04/09/2021 11:15 AM EST) [facility] IMAGING STUDY Exam: X-ray chest 2 views No infiltrates or pleural effusions. ??No failure or ??fluid overload. ??Operative change lower cervical spine. ??Thoracic spine appears intact. ??Heart size is normal. IMPRESSION: No acute findings Electronically signed by Ty Nelson MD [facility] CONVERSIONS Anatomical Region Laterality Modality CHEST Radiographic [...] 06/05/2018 7:39 PM EST Testing Performed at: [facility], [address] [place] [address], , Deep Fat Cook Fry: Mariann Talley MD CL#[id number] us DENY [facility] Final Result PHCT CONVERSIONS * MAMMOGRAM SCREENING , BILATERAL FC (09/03/2017 9:28 AM EDT) BI-RADS CODE BI-RADS Category 2: Continue Routine Screening PHCT CONVERSIONS Anatomical Region Laterality Modality BREAST Bilateral Mammography 09/03/2017 9:28 AM EDT us Php Unknown Prov IMG MAMMO ORDERABLES Final Resu lt from Last 3 Months or Most Recently Relevant to Health Maintenance Care Teams Sports Reporter Relationship Specialty Start Date End Date Sydney Avery PA [address] [place] [id number] PCP - General 12/16/22 Sydney Avery PA [address] [place] [address] PCP - Backup PCP Family Medicine 06/11/23
== END 2024-09-29 15:33 | disposition home or self-care (01) ==
PROVIDERS: PCP Nurse Practitioner Family; Visit Provider Nurse Practitioner Family
DX: R14.0 Abdominal distension (gaseous) (principal); R19.4 Change in bowel habit; K21.9 Gastro-esophageal reflux disease without esophagitis; R10.13 Epigastric pain
CPT/HCPCS: 99204

== ENCOUNTER 2024-11-25 07:51 | Outpatient (REF) | payer BC, SELFPAY ==
--- OUTSIDE RECORDS SUMMARY | 2024-11-25 07:53 | XMS_ITS | Encounter Summary ---
Author Organization [facility] Address [address] [place] [address] Care Team Providers Care Clerk Name Role Phone DNEY Avery Monika Primary Care Provider [phone] DENY Avery Monika Unavailable [phone] Reason for Visit * Reason Comments E-prescribing Refill Request Encounter Details Date Type Department Care Team (Late st Contact Info) Description 05/15/2024 Refill [facility] [address] [place] [phone] Sydney Avery PA [address] [place], [place] [phone] E-prescribing Refill Request Social History Tobacco Use [...] often more reliable than measurements at the doctor s office. You can also improve your [...] hypercholesterolemia documented in this encounter Care Teams Clerk Relationship Specialty Start Date End Date Sydney Avery PA [address] [place] [address] PCP - General 12/16/22 Sydney Avery PA [address] [place] [address] PCP - Backup PCP Family Medicine 06/11/23 documented as of this encounter
--- OUTSIDE RECORDS SUMMARY | 2024-11-25 07:53 | XMS_ITS | Encounter Summary ---
Author Organization [facility] Address [address] [place], [place] [id number] Care Team Providers Care Operations Welder Name Role Phone Tamela Dela Cruz APRN Primary Care Provider Riri ray Pcp, No Primary Care Provider Barbara Lucero APRN Primary Care Provider [phone] Tommy Handy MD Unavailable Encounter Details Date Type Department Care Team (Late st Contact Info) Description 09/27/2015 Scanned Document [address] [phone] Provider, Generic Social History Tobacco [...] on filedocumented in this encounter Care Teams Operations Welder Relationship Specialty Start Date End Date Tamela Dela Cruz APRN PCP - General Internal Medicine 09/25/15 10/02/15 Pcp, No PCP - General General Medicine 10/04/15 10/17/15 Barbara Lobo APRN PCP - General 10/18/15 Tommy Handy MD [address] [place] [address] 07/20/12 documented as of this encounter
[2024-11-25 11:40] LABS: Cholesterol 288 mg/dL (<200); HDL Cholesterol 55 mg/dL (>40); Triglycerides 219 mg/dL (<150)
== END 2024-11-25 07:52 | disposition home or self-care (01) ==
LOC: HO.WFDLDS 07:51
PROVIDERS: Visit Provider Nurse Practitioner Family
DX: E89.0 Postprocedural hypothyroidism (principal); E78.00 Pure hypercholesterolemia, unspecified
CPT/HCPCS: 36415; 80061; 84443

== ENCOUNTER 2024-11-26 08:53 | Outpatient (AMB) | payer BC, SELFPAY ==
--- OUTSIDE RECORDS SUMMARY | 2024-11-26 08:56 | XMS_ITS | Encounter Summary ---
Author Organization [facility] Address [address] [place], [place] [id number] Care Team Providers Care Crust Sorter Name Role Phone Tamela Dela Cruz APRN Primary Care Provider Riri ray Pcp, No Primary Care Provider Barbara Lucero APRN Primary Care Provider [phone] Tommy Handy MD Unavailable Encounter Details Date Type Department Care Team (Late st Contact Info) Description 09/27/2015 Scanned Document [address] [phone] Provider, Generic Social History Tobacco [...] on filedocumented in this encounter Care Teams Crust Sorter Relationship Specialty Start Date End Date Tamela Dela Cruz APRN PCP - General Internal Medicine 09/25/15 10/02/15 Pcp, No PCP - General General Medicine 10/04/15 10/17/15 Barbara Lobo APRN PCP - General 10/18/15 Tommy Handy MD [address] [place] [address] 07/20/12 documented as of this encounter
--- OUTSIDE RECORDS SUMMARY | 2024-11-26 08:56 | XMS_ITS | Encounter Summary ---
Author Organization [facility] Address [address] [place] [address] Care Team Providers Care Ship Design Teacher Name Role Phone DENY Avery Monika Primary Care Provider [phone] DENY Avery Monika Unavailable [phone] Reason for Visit * Reason Comments E-prescribing Refill Request Encounter Details Date Type Department Care Team (Late st Contact Info) Description 05/15/[address] [facility] [address] [place] [phone] Sydney Avery PA [address] [place], [place] [address] E-prescribing Refill Request Social History Tobacco Use [...] hypercholesterolemia documented in this encounter Care Teams Ship Design Teacher Relationship Specialty Start Date End Date Sydney Avery PA [address] [place] [address] PCP - General 12/16/22 Sydney Avery PA [address] [place] [address] PCP - Backup PCP Family Medicine 06/11/23 documented as of this encounter
--- NOTE | 2024-11-26 08:58 | A.OFFPC_ITS ---
Vital Signs 11/26/24 09:04 11/26/24 09:13 Height 5 ft 2 in Weight 167 lb 6 oz BMI 30.6 BP 144/80 H 119/74 Blood Pressure Location Lt brachial Lt brachial Position Sitting Respiration 13 Pulse 88 Pulse Source Pulse Oximeter Temp 97.1 F Temp Source Oral Pulse Oximetry (%) 99 Oxygen Delivery Method Room Air Intake Visit Reasons: 3 months lipid thyroid and breathing fu Intake Note: Follow up to review labs. Patient also c/o headaches and getting dizzy from it and falling down. Patient also is unable to sleep from abd px. Singeing Torch Operator Required: No Allergies bee venom protein (honey bee) Allergy (Severe, Verified 11/26/24 09:07) Anaphylaxis tree nut Allergy (Severe, Verified 11/26/24 09:07) Anaphylaxis Medication List - Last Reconciled 11/26/24 by Yaritza Alexandra INFORMATION SERVICES MANAGER- albuterol sulfate 90 mcg/actuation 2 puffs inhalation Q6H PRN bisacodyl (Dulcolax (bisacodyl)) 10 mg (2 x 5 mg) PO BEDTIME epinephrine (EpiPen) 0.3 mg (0.3 mL) IM Q4H PRN fluticasone furoate 50 mcg/actuation (Arnuity Ellipta) 1 inh inhalation DAILY ondansetron 4 mg PO Q8H PRN pantoprazole 40 mg PO DAILY polyethylene glycol 3350 (Miralax) 238 grams PO ONCE propranolol 10 mg PO BID PRN sumatriptan succinate take 1 tab at onset of headache; if no relief, may repeat 1 tab after at least 2 hrs; max = 2 tabs/24 hrs PO Synthroid (levothyroxine) 125 mcg PO DAILY NS triamcinolone acetonide 0.1% 1 appl topical BID Tobacco use date assessed: 11/26/24 Dental Screening Dental Screen Date: 11/26/24 Did you have a dental visit in the last 12 months?: Yes Did you have a dental problem in the last 6 months where you did not have access to dental care?: No Was dental information given to patient?: Patient has dentist HPI HPI Comments History of Present Illness Details 59 y/o F with asthma, migraines w/o aura , thyroid ca s/p thyroidectomy, former smoker, obesity , menopause, MARE, hypothyroidism, HLD, chronic low back pain, vit d def, s/p c section, adenoidectomy, sinus surgery, hysterectomy, cervical disc replacement , total thyroidectomy Family hx: kidney ca, htn, heart dz, thyroid disorder, colon polyp Social: , now has boyfriend Health Maintenance Pap: 2020 Colon 2007, repeat 10 years Mammo ordered and pending Flu declined Tdap declined [facility] [employer] GI appt at [facility] October 2024 Neuro History of Present Illness - The patient is a 59-year-old female pr esenting for follow-up on chronic conditions - Hyperlipidemia with minimal improvemen t; incorrect supplement use. - Hypothyroidism stable on current meds - Anxiety addressed with twice-daily dos ing propanolol, needs refill . - Severe GI distress, persistent pain, a nd dietary limitations. Has barium swallow scheduled this month then EGD/Colon to follow @ [facility] GI - Severe headaches, two types, she suspe cts hormonal in origin. Imitrex helps for migraines, not for others. Taking Mag and riboflavin already. Reports Fiorecet w/ Codeine helps other headaches. Has some left over she has been using from old PCP. States she cant tolerate OTC Excedrin migraine d/t GI side effects. Made her aware these are the same ingredients minus the codeine in fiorecet. REcommend she try this again. - Reported substantial weight gain , int erested in Med. Asst. Wt loss. Agreed to wait until GI workup complete. - Asthma under control - Feels a mild cold coming on, sx starte d yesterday; R ear feels blocked. Review of Systems - Cardiovascular: Reports hyperlipidemia . - Endocrine: Reports hypothyroidism. - Neurological: Reports severe headaches , increased lately. - Gastrointestinal: Reports significant discomfort, nausea, inability to eat. - Psychological: Reports anxiety, partic ularly related to upcoming personal anniversary. - Musculoskeletal: Reports increased BMI linked to lifestyle changes. - Menopausal: Reports symptoms suggest h ormonal changes affecting headache pattern. Physical Exam General: Well developed, well nourished, in no acute distress. Appears stated age. Head: Normocephalic, atraumatic. Eyes: Pupils are equal, round and reactive to light and accommodation. Conjunctivae are clear. Ears: TM intact and clear L, cerumen impaction R removed w/ lavage. Pt tolerated. TM intact and clear Nose: Nares and turbinates clear Throat: Pharynx clear Lungs: Clear to auscultation bilaterally. No rales, rhonchi or wheeze noted. Good air flow in all johns. Heart: Regular rate and rhythm. No murmurs, click, rubs or gallops are noted. Psych: Mood and affect appropriate. Results See below Lipid profile. Discussion Notes During our discussion, I explained to the patient that the minimal improvement in her cholesterol profile is likely due to her not taking the recommended supplement, [place] bergamot. We reviewed the correct dosage and she was instructed to start the appropriate treatment immediately. I addressed her gastrointestinal distress and recommended continuing the plan for GI diagnostics to resolve persistent symptoms. We spoke about her anxiety, especially in light of the personal anniversary, and I encouraged her to maintain her current medication regimen, which has shown improvement. I detailed wckt-fgl-nrepwqx oxygen for her headaches, a therapeutic option she found appealing.; also to try OTC excedrin. I also scheduled follow-up lab work in three months. Assessment and Plan 1. Hyperlipidemia - Begin Forsyth bergamot supplements; rec heck lipids in three months. 2. Hypothyroidism - Continue Synthroid at night; 3. Anxiety - Maintain current medication regimen. 4. Gastrointestinal Distress - Complete endoscopic assessments; follo w GI specialist advice. 5. Headaches - Use OTC oxygen, continue Imitrex; tria l otc excedrin, consider Fioricet with codeine only if other tx do not work. 6. Menopausal Symptoms - Continue magnesium and riboflavin; mon itor for symptom changes. - referred to specialist - matt wei 7. Increased Body Mass Index - Postpone weight management until GI cl earance. 8. R cerumen imp - cleared today. 9. Viral URI supportive care; Emergen- C, Zicam, Zinc etc. Patient Instructions - Take Forsyth bergamot supplements as pr escribed and order the correct tablets. - Continue current Synthroid regimen and anxiety medication as discussed. - Use basj-gwi-tclqsuc oxygen as soon as headache symptoms start. - Follow the low-FODMAP diet to assist g astrointestinal comfort. - Attend all scheduled GI diagnostic mana ointments for further evaluation. - Emergen-C, Zicam, Zinc etc. - Return in three months for follow-up a nd repeat cholesterol lab work & for CPE sooner PRN. Consent Patient was informed and verbally consented to the use of an ambient scribe for clinic note documentation during this visit. Total time spent caring for the patient today was 45 minutes. This includes time spent before the visit reviewing the chart, time spent during the visit, and time spent after the visit on documentation, reviewing laboratory results, diag nostic imaging, medications, performing a medically necessary evaluation, counseling on diagnoses, care coordination, ordering appropriate tests, ordering appropriate medications, review of tests performed by other providers, reporting test results with the patient, communication with other healthcare providers. 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 1. Little interest or pleasure in doing things: not at all 2. Feeling down, depressed, or hopeless: not at all 3. Trouble falling or staying asleep, or sleeping too much: nearly every day 4. Feeling tired or having little energy: not at all 5. Poor appetite or overeating: not at all 6. Feeling bad about yourself - or that you are a failure or have let yourself or your family down: not at all 7. Trouble concentrating on things, such as reading the newspaper or watching television: not at all 8. Moving or speaking so slowly that other people could have noticed. Or the opposite - being so fidgety or restless that you have been moving around a lot more than usual: not at all 9. Thoughts that you would be better off or of hurting yourself in some way: not at all Total score: 3 Depression Screening Interpretation: Negative Depression Screening Done: Yes 40187 - PHQ-9 Billing: Yes Source: Developed by Drs. Johnny Golden, Sherlyn Luis, Marc Lopez and colleagues, with an educational dustin from [employer]. Thrive Questionnaire Date Thrive assessed: 11/26/24 I am a: Patient What is your living situation today?: I have a steady place to live Within the past 12 months, did the food you bought not last and you didn't have the money to get more?: Never true Within the past 12 months, did you worry whether your food would run out before you got money to buy more?: Never true Do you have trouble paying for medicines?: No Do you have trouble getting transportation to medical appointments?: No Do you have trouble paying your heating and electricity bill?: No Do you have trouble taking care of your child, family member or friend?: No Do you have trouble with day-to-day activities such as bathing, preparing meals, shopping, managing finances, etc.?: No Are you currently unemployed and looking for a job?: No Are you interested in more education?: I choose not to answer this question Please select the resources that you would like help with: None Currently or been in a relationship where the following occur: No concerns reported THRIVE Score: 0 AUDIT C Alcohol Use Questionnaire (AUDIT-C) 1. How often do you have a drink containing alcohol?: Never 3. How often do you have six or more drinks on one occasion?: Never Total Score: 0 Score Reviewed/Action Taken: Yes MARE-7 AMB Questionnaire MARE-7 Date MARE - 7 assessed: 11/26/24 Feeling nervous, anxious, or on edge: 0 = Not at all Not being able to stop or control worryin = Not at all Worrying too much about different things: 0 = Not at all Trouble relaxin = Not at all Being so restless that it is hard to sit still: 0 = Not at all Becoming easily annoyed or irritable: 0 = Not at all Feeling afraid as if something awful might happen: 0 = Not at all Total MARE-7 score (0-4 normal; 5-9 mild; 10-14 moderate; 15-21 severe): 0 Source: Developed by Drs. Johnny Golden, Sherlyn Luis, Marc Lopez and colleagues, with an educational dustin from [employer]. MARE-7 Assessment Billing MARE-7 Assessment Tool: MARE-7 Assessment 59769 ACT Questionnaire In the past 4 weeks, how much of the time did your asthma keep you from getting as much done at work, school or at home?: None of the time During the past 4 weeks, how often have you had shortness of breath?: Not at all During the past 4 weeks, how often did your asthma symptoms wake you up at night or earlier than usual in the morning?: Not at all During the past 4 weeks, how often have you had to use your rescue inhaler or nebulizer medication?: Not at all How would you rate your asthma control during the past 4 weeks?: Completely controlled ACT Interpretation: Negative Score: 25 Physical exam (Primary Care) Tobacco/Smoking Status: Tobacco use Status Tobacco use date assessed 11/26/24 11/26/24 09:01 Patient Tobacco Use Status Former Tobacco user 11/26/24 09:01 Tobacco use type 11/03/23 10:11 e-Cigarette/Vaping Use Never Used 11/26/24 09:01 PHQ-9: PHQ-9 Score PHQ-9: Total score 3 11/26/24 09:01 Depression Screening Interpretation: Negative Thrive Assessment: Date of Thrive Assessment Date Thrive assessed 11/26/24 11/26/24 09:01 Currently or been in a relationship where the following occur: No concerns reported Office Procedures Cerumen Removal From which ear canal was the cerumen removed: right Removal: irrigation Notes: patient tolerated procedure well, no complications and ear canal clear [id number]-Gjq Irrigation/Lavage Results Reviewed Results Reviewed: 11/2024 Laboratory Result Units Range Interpretation Provider Comments Triglycerides Level 219 mg/dL (<150) High Cholesterol Level 288 mg/dL (<200) High LDL Cholesterol, Calculated 190 mg/dL (<100) High HDL Cholesterol 55 mg/dL (>40) Thyroid Stimulating Hormone (TSH) 1.57 uIU/mL (0.32-4.0) Coding Level of Care Code Est Pt Level 5 (15298) Complex EM visit Add On G2211 Diagnoses Hypercholesterolemia E78.00 Postoperative hypothyroidism E89.0 Hypothyroidism type: postoperative H/O thyroidectomy Z98.890; Z90.89 Moderate persistent asthma without complication J45.40 Asthma severity: moderate Asthma persistence: persistent Asthma complication type: uncomplicated Elevated blood pressure reading without diagnosis of hypertension R03.0 Migraine without aura and without status migrainosus, not intractable G43.009 Status migrainosus presence: without status migrainosus Intractability: not intractable Right ear impacted cerumen H61.21 Viral URI J06.9 CPT Codes Office Procedure - CPT: 96760-Zas Irrigation/Lavage ([id number]) Additional Codes MARE-7 Assessment Billing - MARE-7 Assessment Tool: MARE-7 Assessment 22543 ([id number]) PHQ-9 - 92860 - PHQ-9 Billing: Yes ([id number]) Asthma Control Questionnaire - ACT Interpretation: Negative ([id number]) Assessment & Plan Assessment & Plan (1) Hypercholesterolemia: Code(s): E78.00 - Pure hypercholesterolemia, unspecified Category: Medical (2) Hypothyroidism: Code(s): E03.9 - Hypothyroidism, unspecified Category: Medical Qualifiers: Hypothyroidism type: postoperative Qualified Code(s): E89.0 - Postprocedural hypothyroidism (3) H/O thyroidectomy: Comment: d/t thyroid ca Code(s): Z98.890 - Other specified postprocedural states; Z90.89 - Acquired absence of other organs Category: Surgical (4) Asthma: Code(s): J45.909 - Unspecified asthma, uncomplicated Category: Medical Qualifiers: Asthma severity: moderate Asthma persistence: persistent Asthma complication type: uncomplicated Qualified Code(s): J45.40 - Moderate persistent asthma, uncomplicated (5) Elevated blood pressure reading without diagnosis of hypertension: Code(s): R03.0 - Elevated blood-pressure reading, without diagnosis of hypertension Category: Medical (6) Migraine without aura: Code(s): G43.009 - Migraine without aura, not intractable, without status migrainosus Category: Medical Qualifiers: Status migrainosus presence: without status migrainosus Intractability: not intractable Qualified Code(s): G43.009 - Migraine without aura, not intractable, without status migrainosus (7) Right ear impacted cerumen: Code(s): H61.21 - Impacted cerumen, right ear (8) Viral URI: Code(s): J06.9 - Acute upper respiratory infection, unspecified Plan . Orders: Orders Lipid Panel 3 Months E78.00 - Pure hypercholesterolemia, unspecified, E89.0 - Postprocedural hypothyroidism TSH reflex Free T4 3 Months E78.00 - Pure hypercholesterolemia, unspecified, E89.0 - Postprocedural hypothyroidism Vitamin D 1,25 dihydroxy 3 Months E78.00 - Pure hypercholesterolemia, unspecified, E89.0 - Postprocedural hypothyroidism Comprehensive Met. Panel 3 Months E78.00 - Pure hypercholesterolemia, unspecified, E89.0 - Postprocedural hypothyroidism Medications: New magnesium 400 mg PO DAILY Refilled propranolol 10 mg PO BID PRN 180 tabs 2RF anxiety Patient Instructions: Patient Instructions - Take Forsyth bergamot supplements as prescribed and order the correct tablets. - Continue current Synthroid regimen and anxiety medication as discussed. - Use aedt-odx-evtrhau oxygen as soon as headache symptoms start. - Follow the low-FODMAP diet to assist gastrointestinal comfort. - Attend all scheduled GI diagnostic appointments for further evaluation. - Return in three months for follow-up and repeat cholesterol lab work.
[2024-11-26 09:04] VITALS: BP 144/80; PULSE 88; RESP 13; TEMP 36.2; O2SAT 99; BMI 30.6
[2024-11-26 09:13] VITALS: BP 119/74
== END 2024-11-26 09:42 | disposition home or self-care (01) ==
LOC: HO.HMCFM 08:53
PROVIDERS: PCP Nurse Practitioner Family; Visit Provider Nurse Practitioner Family
DX: E78.00 Pure hypercholesterolemia, unspecified (principal); J45.40 Moderate persistent asthma, uncomplicated; R03.0 Elevated blood-pressure reading, without diagnosis of hypertension; G43.009 Migraine without aura, not intractable, without status migrainosus; E89.0 Postprocedural hypothyroidism; Z98.890 Other specified postprocedural states; Z90.89 Acquired absence of other organs; H61.21 Impacted cerumen, right ear; J06.9 Acute upper respiratory infection, unspecified

== ENCOUNTER → 2024-11-26 08:53 | Outpatient (BNVA) | payer BC, SELFPAY | PROVIDERS: PCP Nurse Practitioner Family; Visit Provider Nurse Practitioner Family | DX: E78.00 Pure hypercholesterolemia, unspecified (principal); E89.0 Postprocedural hypothyroidism; J45.40 Moderate persistent asthma, uncomplicated; R03.0 Elevated blood-pressure reading, without diagnosis of hypertension; G43.009 Migraine without aura, not intractable, without status migrainosus; H61.21 Impacted cerumen, right ear; J06.9 Acute upper respiratory infection, unspecified; Z90.89 Acquired absence of other organs; Z98.890 Other specified postprocedural states; Z13.31 Encounter for screening for depression; Z13.39 Encounter for screening examination for other mental health and behavioral disorders | CPT/HCPCS: 69209; 96127; 96160 ==

== ENCOUNTER 2024-11-30 09:20 | Outpatient (REF) | payer BC, SELFPAY ==
--- NOTE | ~2024-11-30 | FL_ITS ---
EXAMINATION: XR FLUOROSCOPY UPPER GI SERIES CLINICAL INFORMATION: Epigastric abdominal pain, reflux type symptoms, episodic dysphasia. COMPARISON: None TECHNIQUE: Fluoroscopic air contrast upper GI examination was performed utilizing standard techniques with thin and thick barium and effervescent granules. Numerous spot images were obtained. Several fluoroscopic image hold cine sequences were also obtained. FINDINGS: UPPER GI SERIES: Lateral cine images of the oropharynx and hypopharynx demonstrate normal swallow mechanism with normal epiglottic inversion and soft palate elevation. No laryngeal penetration, glottic or subglottic aspiration identified. No nasopharyngeal reflux present. Hypopharyngeal structures appear normal without evidence of mass or diverticulum. There was no significant cricopharyngeal achalasia. Dual and single contrast images of the esophagus demonstrate normal caliber, contour, and mucosal pattern. No evidence of stricture, mass, or ulcerations identified. Esophageal peristalsis was mild to moderately disordered. There was a tiny type I hiatus hernia. There is episodic gastroesophageal reflux to the level of the aortic arch. Dual contrast and single contrast images of the stomach demonstrated normal contour and mucosal pattern without evidence of mass, ulceration, or other abnormality. Normal rugal fold pattern. Contrast freely passed into the gastric antrum and duodenal bulb without delay. Single and air-contrast images of the duodenal bulb demonstrate no abnormality. The duodenal sweep has a normal appearance, course, and mucosal fold appearance. Anterior cervical fusion incidentally noted. Surgical clips present in the region of the thyroid. FLUOROSCOPY TIME: 3 minutes, 8 seconds. Number of Spot Images:10 Number of cines obtained: 6 DOSE AREA PRODUCT: 3243 uGy-m2 (microgray-meter squared) FL/FL upper GI w air w Ba Swallow IMPRESSION: 1. Mild to moderately disordered esophageal peristalsis. 2. Tiny type I hiatus hernia. 3. Episodic gastroesophageal reflux to the level of the aortic arch. 4. Normal-appearing stomach and duodenum. Electronically signed by: Jayden Garcia MD 11/30/2024 10:18 AM EDT
--- OUTSIDE RECORDS SUMMARY | 2024-11-30 09:52 | XMS_ITS | Encounter Summary ---
Author Organization [facility] Address [address] [place], [place] [id number] Care Team Providers Care Nailhead Setter Name Role Phone Tamela Dela Cruz APRN Primary Care Provider Riri ray Pcp, No Primary Care Provider Barbara Lucero APRN Primary Care Provider [phone] Tommy Handy MD Unavailable Encounter Details Date Type Department Care Team (Late st Contact Info) Description 09/27/2015 Scanned Document [address] [id number] Provider, Generic Social History Tobacco [...] on filedocumented in this encounter Care Teams Nailhead Setter Relationship Specialty Start Date End Date Tamela Dela Cruz APRN PCP - General Internal Medicine 09/25/15 10/02/15 Pcp, No PCP - General General Medicine 10/04/15 10/17/15 Barbara Lobo APRN PCP - General 10/18/15 Tmomy Handy MD [address] [place] [id number] 07/20/12 documented as of this encounter
--- OUTSIDE RECORDS SUMMARY | 2024-11-30 09:52 | XMS_ITS | Encounter Summary ---
Author Organization [facility] Address [address] [place] [address] Care Team Providers Care Brickmason Name Role Phone DENY Avery Monika Primary Care Provider [phone] DENY Avery Monika Unavailable [phone] Reason for Visit * Reason Comments E-prescribing Refill Request Encounter Details Date Type Department Care Team (Late st Contact Info) Description 05/15/2024 Refill [facility] [address] [place] [id number] Sydney Avery PA [address] [place] [address], [place] [address] E-prescribing Refill Request Social History Tobacco Use [...] hypercholesterolemia documented in this encounter Care Teams Brickmason Relationship Specialty Start Date End Date Sydney Avery PA [address] [place] [address] PCP - General 12/16/22 Sydney Avery PA [address] [place] [address] PCP - Backup PCP Family Medicine 06/11/23 documented as of this encounter
== END 2024-11-30 09:21 | disposition home or self-care (01) ==
LOC: HO.XRAY 09:20
PROVIDERS: PCP Nurse Practitioner Family; Visit Provider Nurse Practitioner Family
DX: R10.13 Epigastric pain (principal); K21.9 Gastro-esophageal reflux disease without esophagitis
CPT/HCPCS: 74246

== ENCOUNTER → 2024-11-30 09:21 | Outpatient (BNV) | payer BC, SELFPAY | PROVIDERS: PCP Nurse Practitioner Family; Visit Provider Radiology Diagnostic Radiology | DX: K21.9 Gastro-esophageal reflux disease without esophagitis (principal) | CPT/HCPCS: 74246 ==

== ENCOUNTER 2025-02-02 10:20 | Day surgery (SDC) | payer BC, SELFPAY ==
--- NOTE | 2025-01-31 14:39 | P.CONAN_ITS ---
Documented by User: Mary Lou Jaquez NP 01/31/25 14:39 HPI - Anesthesia Eval Consult details Narrative: 59yo F for Upper Endoscopy and Colonoscopy PMFSH Active Problems Active Problems: All Active Problems Obesity (BMI 30-39.9) (Acute) BMI 30.0-30.9,adult (Acute) H/O thyroidectomy (Acute) Alternating constipation and diarrhea (Acute) Abdominal bloating (Acute) Menopause (Acute) Migraine without aura (Acute) Skin eruption (Acute) Thyroid cancer (Acute) Breast cancer screening by mammogram (Acute) Colon cancer screening (Acute) Eye exam, routine (Acute) Pap smear for cervical cancer screening (Acute) Insomnia (Acute) Normal physical examination, routine (Acute) Environmental allergies (Acute) Anxiety (Acute) Chronic low back pain with left-sided sciatica (Acute) Arthritis (Acute) Hypercholesterolemia (Acute) Hypothyroidism (Acute) Elevated blood pressure reading without diagnosis of hypertension (Acute) Asthma (Acute) Vitamin D deficiency (Acute) Laboratory tests ordered as part of a complete physical exam (CPE) (Acute) Past Medical History Medical History Thyroid cancer delivery delivered Asthma Arthritis Joint pain Migraines Family History Family History Other Cancer of kidney Colon polyps Heart disease Hypertension Thyroid disorder Surgical History Surgical History History of bilateral carpal tunnel release Hx of tonsillectomy Hx of tubal ligation Hx of thyroidectomy History of colonoscopy (~2007) History of hysterectomy S/P cervical disc replacement H/O adenoidectomy H/O sinus surgery Social History Social History Housing: House Patient Tobacco Use Status: Former Tobacco user e-Cigarette/Vaping Use: Never Used Second Hand Smoke Exposure: No Use of substances other than those prescribed or required for medical reasons: Yes Substance Use Type Other:: edible for sleep--ld 01/31 Substance Use Frequency: Occasionally Are you DNR?: No Advance Directives: No Advance Directives Information Provided: Yes service: No Current occupational status: employed 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 Cognitive needs: No Hearing needs: No Vision needs: Yes Meds Allergies Allergy/AdvReac Type Severity Reaction Status Date / Time bee venom protein (honey bee) Allergy Severe Anaphylaxis Verified 02/02/25 10:45 tree nut Allergy Severe Anaphylaxis Verified 02/02/25 10:45 Home Medications ?Medication ?Instructions ?Recorded ?Confirmed ?Last Taken ?Type magnesium 200 mg tablet 400 mg PO DAILY 11/26/24 Unknown History fluticasone furoate 50 1 inh inhalation DAILY PRN 0 02/02/25 01/31/25 Unknown History mcg/actuation blister powder for Shortness Of Breath O r Wheezing inhalation (Arnuity Ellipta) riboflavin (vitamin B2) 100 mg 400 mg PO DAILY 5 02/02/25 Unknown History tablet (Vitamin B-2) Exam Airway Adult Head Mouth w/Numbe Teeth: 2 1. Missing Assessment and Plan Assessment Anesthesia Assessment: Chart Reviewed Documented by User: Michael Amezquita MD 02/02/25 11:20 [facility] Past Medical History Medical History Thyroid cancer delivery delivered Asthma Arthritis Joint pain Migraines Family History Family History Other Cancer of kidney Colon polyps Heart disease Hypertension Thyroid disorder Family history of problems with anesthesia: No Surgical History Surgical History History of bilateral carpal tunnel release Hx of tonsillectomy Hx of tubal ligation Hx of thyroidectomy History of colonoscopy (~2007) History of hysterectomy S/P cervical disc replacement H/O adenoidectomy H/O sinus surgery History of Problems with Anesthesia: No Social History Social History Housing: House Patient Tobacco Use Status: Former Tobacco user e-Cigarette/Vaping Use: Never Used Second Hand Smoke Exposure: No Use of substances other than those prescribed or required for medical reasons: Yes Substance Use Type Other:: edible for sleep--ld 01/31 Substance Use Frequency: Occasionally Are you DNR?: No Advance Directives: No Advance Directives Information Provided: Yes service: No Current occupational status: employed 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 Cognitive needs: No Hearing needs: No Vision needs: Yes Meds Allergies Allergy/AdvReac Type Severity Reaction Status Date / Time bee venom protein (honey bee) Allergy Severe Anaphylaxis Verified 02/02/25 10:45 tree nut Allergy Severe Anaphylaxis Verified 02/02/25 10:45 Home Medications ?Medication ?Instructions ?Recorded ?Confirmed ?Last Taken ?Type magnesium 200 mg tablet 400 mg PO DAILY 11/26/24 Unknown History fluticasone furoate 50 1 inh inhalation DAILY PRN 0 02/02/25 01/31/25 Unknown History mcg/actuation blister powder for Shortness Of Breath O r Wheezing inhalation (Arnuity Ellipta) riboflavin (vitamin B2) 100 mg 400 mg PO DAILY 5 02/02/25 Unknown History tablet (Vitamin B-2) Exam Narrative Narrative: MIRTA, blood Airway Mallampati Class: II TM Dist: >3cm Neck ROM: Full Adult Head Mouth w/Numbe Teeth: 2 1. Missing Loose/Missing/Broken Teeth: Yes Heart: tachycardia Lungs: CTAB vesicular Other: anxious Assessment and Plan Final Anesthetic Review Family History of Problems with Anesthesia: No History of Problems with Anesthesia: No NPO: Yes ASA Class: II Final Preanesthetic Review: No Changes in Pt Med Stat, Meds/Allgs Chart Reviewed, Consent Obtained/Reviewed and Anes Risks/Benef Reviewed Patient Risk: Low Procedure Risk: Low Anesthetic Plan Anesthetic Plan: MAC: Disposition: Standard PACU
[2025-01-31 15:00] VITALS: BMI 30.2
[2025-02-02 10:46] VITALS: BMI 29.1
[2025-02-02 11:03] VITALS: BP 145/70; PULSE 105; RESP 15; TEMP 36.2; O2SAT 96
[2025-02-02] MEDS: Lactated Ringers 1,000 ML 100 ML IVCONT (11:06)
--- NOTE | 2025-02-02 11:11 | MHC.SHP ---
Pre-Procedural Eval Section A - 24 Hr Update-Section A only Date of Service: 02/02/25 Section B - Complete if H&P > 30 days Chief Complaint: gerd,screening Relevant Family History (Specify if Yes): No Relevant Social History: None Present Medications: see Short Stay Collaborative assessment Medical History: Significant History (Thyroid cancer delivery delivered Asthma Arthritis Joint pain Migraines) History of Previous Operations: Relevant previous surgery/procedure and date(s) (History of colonoscopy (~2007) History of hysterectomy S/P cervical disc replacement H/O adenoidectomy H/O sinus surgery) Allergies: Allergies Allergy/AdvReac Type Severity Reaction Status Date / Time bee venom protein (honey bee) Allergy Severe Anaphylaxis Verified 02/02/25 10:45 tree nut Allergy Severe Anaphylaxis Verified 02/02/25 10:45 Review of Systems Sugical H&P ROS: Negative: Constitution, Cardiovascular, Respiratory, Neurological, Psychiatric, Hem-Onc, Allergic/Immunologic, Gastrointestinal, Genitourinary, Musculoskeletal, Integumentary, Endocrine and Eyes/Ears/Nose/Throat Exam Surgical H&P Exam: Normal: HEENT, Normal: Heart, Normal: Lungs, Normal: Extremities, Normal: Abdomen, Normal: Skin and Normal: Neurological Plan Diagnosis/Plan: Unchanged I have reviewed the history and physical and performed a pertinent physical examination on my patient. No changes have occurred unless specified. Time Spent With Patient Time: Total time managing care of this patient today ____ minutes.
--- NOTE | 2025-02-02 12:36 | P.OPN-COLO_ITS ---
Colonoscopy Operative Note Operative Note Date of Service: 02/02/25 Narrative: Operative Information Procedure Description: EGD, Colonoscopy Indication: GERd, colon screen Anesthesia: [] FLEXIBLE TRANSORAL UPPER GASTROINTESTINAL ENDOSCOPY AND COLONOSCOPY PROCEDURE NOTE UPPER ENDOSCOPY Consent: Indications for the procedure and potential complications of bleeding, perforation, reaction to medications and missed diagnosis were discussed with the patient and informed consent was obtained. Instrument: Olympus GIF H 190 J mid size upper endoscope Monitoring: Vital signs and clinical assessment, continuous EKG monitoring, Pulse oximetry, Carbon Dioxide monitoring and blood pressure monitoring were done throughout the procedure. Procedure: The patient was placed in the left lateral decubitis position and pre-procedure medications were administered and a bite block was placed. The endoscope was inserted into the mouth and advanced under direct vision to the third part of duodenum. A careful inspection was made as the upper endoscope was withdrawn including a retroflexed examination of the proximal stomach; Findings and interventions are described below. Findings: Larynx:normal Esophagus: GE junction at 37 cm, diaphragm hiatus at 37 cm, few streaky erosions in distal esophagus noted with mild esophagitis, bx taken from GEJ, diatal and proximal esophagus. Balloon dilation to 20 mm at LES and UES Stomach: Patchy erythema. Biopsies were obtained. Grade 2 flap valve on retroflexed examination of the cardia. Duodenum: Normal bulb and descending duodenum, bx taken Intervention: Biopsies as noted above, balloon dilation COLONOSCOPY Instrument: Olympus variable stiffness pediatric scope 190L Colonoscopy Monitoring: Vital signs and clinical assessment, continuous EKG monitoring, Pulse oximetry, Carbon Dioxide monitoring and blood pressure monitoring were done throughout the procedure. Colon withdrawal time was 9 minutes. Procedure: The patient was placed in the left lateral decubitis position and pre-procedure medications were administered. After a digital rectal examination of the ano-rectum, the video colonoscope was inserted into the rectum and advanced through the colon to the cecum/TI. The colonoscope was slowly withdrawn in a retrograde panoramic fashion and the colon mucosa was carefully examined including a retroflexed view of the rectum. Findings and interventions are described below. Procedure Difficulty: easy Findings: Terminal Ileum-normal Cecum:normal Ascending Colon: 6-7 mm sessile polyp removed with cold snare Transverse Colon -normal Descending Colon:normal Sigmoid Colon: normal Rectum: Retroflexion with small internal hemorrhoids, grade I Anorectum - normal Colon preparation: [place] Bowel Preparation Scale Right colon; 2 Transverse colon: 2 Left colon; 2 (0 = Unprepared colon segment with mucosa not seen due to solid stool that cannot be cleared. 1 = Portion of mucosa of the colon segment seen, but other areas of the colon segment not well seen due to staining, residual stool and/or opaque liquid. 2 = Minor amount of residual staining, small fragments of stool and/or opaque liquid, but mucosa of colon segment seen well. 3 = Entire mucosa of colon segment seen well with no residual staining, small fragments of stool or opaque liquid) Impression and Post Procedure Diagnosis: Endoscopy Findings: erosive esophagitis gastritis Colonoscopy Findings: colon polyp internal hemorrhoids Plan: Await Pathology results Repeat Colonoscopy in 5 years or earlier if clinically indicated High fiber diet leaflet avoid straining at stool, epsom salts and sitz bath, anusol supps or cream GERD precautions, check compliance with PPI Above findings were reviewed with the patient and relevant handouts were provided if indicated.
[2025-02-02 12:41] VITALS: BP 120/72; PULSE 102; RESP 14; TEMP 35.9; O2SAT 93
[2025-02-02 12:56] VITALS: BP 134/78; PULSE 94; RESP 18; TEMP 36.5; O2SAT 95
== END 2025-02-02 13:17 | disposition home or self-care (01) ==
PROVIDERS: PCP Nurse Practitioner Family; Visit Provider Internal Medicine Gastroenterology
PROC: (CPT 45385; principal; 2025-02-02 14:10)
DX: Z12.11 Encounter for screening for malignant neoplasm of colon (principal); Z80.0 Family history of malignant neoplasm of digestive organs; K63.5 Polyp of colon; K64.0 First degree hemorrhoids; R10.13 Epigastric pain; K21.9 Gastro-esophageal reflux disease without esophagitis; K20.80 Other esophagitis without bleeding; K29.70 Gastritis, unspecified, without bleeding; K44.9 Diaphragmatic hernia without obstruction or gangrene; Z85.850 Personal history of malignant neoplasm of thyroid; J45.909 Unspecified asthma, uncomplicated; G43.909 Migraine, unspecified, not intractable, without status migrainosus; M19.90 Unspecified osteoarthritis, unspecified site; E78.00 Pure hypercholesterolemia, unspecified; F41.9 Anxiety disorder, unspecified; E66.9 Obesity, unspecified; Z68.30 Body mass index [BMI] 30.0-30.9, adult; Z79.899 Other long term (current) drug therapy; Z91.030 Bee allergy status; Z91.018 Allergy to other foods; Z87.891 Personal history of nicotine dependence; Z98.890 Other specified postprocedural states
CPT/HCPCS: 45385; 43249; 43239; 88305; 88313; 88342; C1726; J2003; J2250; J2704; J3010

== ENCOUNTER → 2025-02-02 10:20 | Outpatient (BNV) | payer BC, SELFPAY | PROVIDERS: PCP Nurse Practitioner Family; Visit Provider Internal Medicine Gastroenterology | DX: Z12.11 Encounter for screening for malignant neoplasm of colon (principal); D12.2 Benign neoplasm of ascending colon; K64.0 First degree hemorrhoids; K21.00 Gastro-esophageal reflux disease with esophagitis, without bleeding; K29.70 Gastritis, unspecified, without bleeding | CPT/HCPCS: 43239; 43249; 45385 ==

== ENCOUNTER 2025-02-14 14:48 | Outpatient (REF) | payer BC, SELFPAY ==
[2025-02-14 18:32] LABS: Alanine Aminotransferase 33 U/L (0-31); Albumin Level 4.7 g/dL (3.5-5.0); Alkaline Phosphatase 77 U/L (39-117); Anion Gap 12 (12-20); Aspartate Amino Transferase 25 U/L (5-31); Blood Urea Nitrogen 14 mg/dL (9-16); Calcium 9.8 mg/dL (8.4-10.2); Carbon Dioxide 26 mmol/L (22-29); Chloride 106 mmol/L (96-108); Cholesterol 281 mg/dL (<200); Estimated Glomerular Filt Rate > 60; HDL Cholesterol 53 mg/dL (>40); Potassium 3.9 mmol/L (3.3-5.1); Sodium 140 mmol/L (135-145); Total Protein 7.3 g/dL (6.5-8.0); Triglycerides 257 mg/dL (<150)
[2025-02-20 08:03] LABS: VITAMIN D (1,25 OH) D3 51 pg/mL; Vit D (1,25-Dihydroxy) Total 51 pg/mL (18-72); Vitamin D (1,25 OH) D2 <8 pg/mL
== END 2025-02-14 14:49 | disposition home or self-care (01) ==
LOC: HO.WFDLDS 14:48
PROVIDERS: PCP Nurse Practitioner Family; Visit Provider Nurse Practitioner Family
DX: Z00.00 Encounter for general adult medical examination without abnormal findings (principal); E78.00 Pure hypercholesterolemia, unspecified; E89.0 Postprocedural hypothyroidism; E66.9 Obesity, unspecified; Z28.21 Immunization not carried out because of patient refusal; R06.81 Apnea, not elsewhere classified; E55.9 Vitamin D deficiency, unspecified; F41.9 Anxiety disorder, unspecified; Z12.31 Encounter for screening mammogram for malignant neoplasm of breast; C73 Malignant neoplasm of thyroid gland; G43.009 Migraine without aura, not intractable, without status migrainosus; J45.40 Moderate persistent asthma, uncomplicated; Z68.30 Body mass index [BMI] 30.0-30.9, adult
CPT/HCPCS: 36415; 80053; 80061; 82652; 84443

== ENCOUNTER 2025-02-14 14:48 | Outpatient (AMB) | payer BC, SELFPAY ==
--- OUTSIDE RECORDS SUMMARY | 2020-08-06 12:41 | XMS_ITS | Encounter Summary ---
Author Organization [facility] Address [address] [place] [address] Care Team Providers Care Clinical Immunologist Name Role Phone Barbara Lobo Conner MITCHELL Primary Care Provider [phone] Tommy Handy MD Unavailable Encounter Details Date Type Department Care Team (Late st Contact Info) Description 08/06/2020 12:41 PM EDT Hospital Encounter [facility] [address] [place] [address] Mikey Corado MD [address] [place] [address] Social History Tobacco Use Types Packs/Day Years [...] on filedocumented in this encounter Care Teams Clinical Immunologist Relationship Specialty Start Date End Date Barbara Lobo PAULA Prieto PCP - General 10/18/15 Tommy Handy MD [address] [address] 07/20/12 documented as of this encounter
--- OUTSIDE RECORDS SUMMARY | 2023-01-22 10:03 | XMS_ITS | Encounter Summary ---
Author Organization [facility] Address [address] [place] [address] Care Team Providers Care Community Cultural Development Officer Name Role Phone Barbara Lobo Conner MITCHELL Primary Care Provider [phone] Tommy Handy MD Unavailable Encounter Details Date Type Department Care Team (Late st Contact Info) Description 01/22/2023 10:03 AM EDT Hospital Encounter [facility] [address] [place] [phone] Leidy Mendoza PA-C [address] [place] [address] Social History Tobacco Use Types Packs/Day Years [...] on filedocumented in this encounter Care Teams Community Cultural Development Officer Relationship Specialty Start Date End Date LashellBarbara APRN PCP - General 10/18/15 Tommy Handy MD [address] [facility] [address] [place] [address] 07/20/12 documented as of this encounter
--- NOTE | 2025-02-14 14:51 | A.OFFPC_ITS ---
Vital Signs 02/14/25 14:57 Height 5 ft 2 in Weight 167 lb 9 oz BMI 30.6 BP 132/74 Blood Pressure Location Lt brachial Position Sitting Respiration 13 Pulse 75 Pulse Source Pulse Oximeter Temp 97.2 F Temp Source Oral Pulse Oximetry (%) 98 Oxygen Delivery Method Room Air Intake Visit Reasons: 3 months CPE labs 1 week before Intake Note: CPE and follow up on labs. 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: No Allergies bee venom protein (honey bee) Allergy (Severe, Verified 02/14/25 14:56) Anaphylaxis tree nut Allergy (Severe, Verified 02/14/25 14:56) Anaphylaxis Tobacco use date assessed: 02/14/25 Dental Screening Dental Screen Date: 02/14/25 Did you have a dental visit in the last 12 months?: Yes Did you have a dental problem in the last 6 months where you did not have access to dental care?: No Was dental information given to patient?: Patient has dentist HPI HPI Comments History of Present Illness Details 59 y/o F with asthma, migraines w/o aura , thyroid ca s/p thyroidectomy, former smoker, obesity , menopause, MARE, hypothyroidism, HLD, chronic low back pain, vit d def, s/p c section, adenoidectomy, sinus surgery, hysterectomy, cervical disc re placement , total thyroidectomy Family hx: kidney ca, htn, heart dz, thyroid disorder, colon polyp Social: , now has boyfriend Health Maintenance [place]: 2020 [place] 2007[place] [facility] ordered and pending Flu declined Tdap declined [facility] [place] [facility] [place] Neuro Results: Colon/EGD 01[place]20[place] [facility] Findings: erosive esophagitis gastritis Colonoscopy Findings: colon polyp internal hemorrhoids Plan: Await Pathology results Repeat Colonoscopy in 5 years or earlier if clinically indicated High fiber diet leaflet avoid straining at stool, epsom salts and sitz bath, anusol supps or cream GERD precautions, check compliance with PPI History of Present Illness - The patient is a 59-year-old female pr esenting for follow-up on chronic conditions - Hyperlipidemia with minimal improvemen t; incorrect supplement use. - Hypothyroidism stable on current meds - Anxiety addressed with twice-daily dos ing propanolol, needs refill . - Severe GI distress, persistent pain, a nd dietary limitations. Has barium swallow scheduled this month then EGD/Colon to [place] [facility] [place] - Severe headaches, two types, she suspe cts hormonal in origin. Imitrex helps for migraines, not for others. Taking Mag and riboflavin already. Reports Fiorecet w/ Codeine helps other headaches. Has some left over she has been using from old PCP. States she cant tolerate OTC Excedrin migraine d/t GI side effects. Made her aware these are the same ingredients minus the codeine in fiorecet. REcommend she try this again. - Reported substantial weight gain , int erested in Med. Asst. Wt loss. Agreed to wait until GI workup complete. - Asthma under control - Feels a mild cold coming on, sx starte d yesterday; R ear feels blocked. Review of Systems - Cardiovascular: Reports hyperlipidemia . - Endocrine: Reports hypothyroidism. - Neurological: Reports severe headaches , increased lately. - Gastrointestinal: Reports significant discomfort, nausea, inability to eat. - Psychological: Reports anxiety, partic ularly related to upcoming personal anniversary. - Musculoskeletal: Reports increased BMI linked to lifestyle changes. - Menopausal: Reports symptoms suggest h ormonal changes affecting headache pattern. Physical Exam General: Well developed, well nourished, in no acute distress. Appears stated age. Head: Normocephalic, atraumatic. Eyes: Pupils are equal, round and reactive to light and accommodation. Conjunctivae are clear. Ears: TM intact and clear L, cerumen impaction R removed w/ lavage. Pt tolerated. TM intact and clear Nose: Nares and turbinates clear Throat: Pharynx clear Lungs: Clear to auscultation bilaterally. No rales, rhonchi or wheeze noted. Good air flow in all johns. Heart: Regular rate and rhythm. No murmurs, click, rubs or gallops are noted. Psych: Mood and affect appropriate. Results See below Lipid profile. Discussion Notes During our discussion, I explained to the patient that the minimal improvement in her cholesterol profile is likely due to her not taking the recommended supplement, [place] bergamot. We reviewed the correct dosage and she was instructed to start the appropriate treatment immediately. I addressed her gastrointestinal distress and recommended continuing the plan for GI diagnostics to resolve persistent symptoms. We spoke about her anxiety, especially in light of the personal anniversary, and I encouraged her to maintain her current medication regimen, which has shown improvement. I detailed ferq-lra-addrgam oxygen for her headaches, a therapeutic option she found appealing.; also to try OTC excedrin. I also scheduled follow-up lab work in three months. Assessment and Plan 1. Hyperlipidemia - Begin [place] bergamot supplements; rec heck lipids in three months. 2. Hypothyroidism - Continue Synthroid at night; 3. Anxiety - Maintain current medication regimen. 4. Gastrointestinal Distress - Complete endoscopic assessments; follo w GI specialist advice. 5. Headaches - Use OTC oxygen, continue Imitrex; tria l otc excedrin, consider Fioricet with codeine only if other tx do not work. 6. Menopausal Symptoms - Continue magnesium and riboflavin; mon itor for symptom changes. - referred to specialist - matt wei 7. Increased Body Mass Index - Postpone weight management until GI cl earance. 8. R cerumen imp - cleared today. 9. Viral URI supportive care; Emergen- C, Zicam, Zinc etc. Patient Instructions - Take [place] bergamot supplements as pr escribed and order the correct tablets. - Continue current Synthroid regimen and anxiety medication as discussed. - Use xisy-jnq-jgyjhqe oxygen as soon as headache symptoms start. - Follow the low-FODMAP diet to assist g astrointestinal comfort. - Attend all scheduled GI diagnostic mana ointments for further evaluation. - Emergen-C, Zicam, Zinc etc. - Return in three months for follow-up a nd repeat cholesterol lab work & for CPE sooner PRN. Consent Patient was informed and verbally consented to the use of an ambient scribe for clinic note documentation during this visit. Total time spent caring for the patient today was 45 minutes. This includes time spent before the visit reviewing the chart, time spent during the visit, and time spent after the visit on documentation, reviewing laboratory results, diagnostic imaging, medications, performing a medically necessary evaluation, counseling on diagnoses, care coordination, ordering appropriate tests, ordering appropriate medications, review of tests performed by other providers, reporting test results with the patient, communication with other healthcare providers. [facility] Medical History Thyroid cancer delivery delivered Asthma Arthritis Joint pain Migraines Surgical History History of bilateral carpal tunnel release Hx of tonsillectomy Hx of tubal ligation Hx of thyroidectomy History of colonoscopy (~2007) History of hysterectomy S/P cervical disc replacement H/O adenoidectomy H/O sinus surgery Family History Other Cancer of kidney Colon polyps Heart disease Hypertension Thyroid disorder Social History Housing: House Patient Tobacco Use Status: Former Tobacco user e-Cigarette/Vaping Use: Never Used Second Hand Smoke Exposure: No service: No Current occupational status: employed Current occupation: [employer] Cognitive needs: No Hearing needs: No Vision needs: Yes Questionnaire Thrive Questionnaire Date Thrive assessed: 07/29/24 I am a: Patient What is your living situation today?: I have a steady place to live Within the past 12 months, did the food you bought not last and you didn't have the money to get more?: Never true Within the past 12 months, did you worry whether your food would run out before you got money to buy more?: Never true Do you have trouble paying for medicines?: No Do you have trouble getting transportation to medical appointments?: No Do you have trouble paying your heating and electricity bill?: No Do you have trouble taking care of your child, family member or friend?: No Do you have trouble with day-to-day activities such as bathing, preparing meals, shopping, managing finances, etc.?: No Are you currently unemployed and looking for a job?: No Are you interested in more education?: I choose not to answer this question Please select the resources that you would like help with: None Currently or been in a relationship where the following occur: No concerns reported THRIVE Score: 0 MARE-7 AMB Questionnaire MARE-7 Date MARE - 7 assessed: 11/26/24 Source: Developed by Drs. Johnny Golden, Sherlyn Luis, Marc Lopez and colleagues, with an educational dustin from [employer]. Physical exam (Primary Care) Tobacco/Smoking Status: Tobacco use Status Tobacco use date assessed 11/26/24 11/26/24 09:01 Patient Tobacco Use Status Former Tobacco user 02/02/25 12:41 Tobacco use type 11/03/23 10:11 e-Cigarette/Vaping Use Never Used 11/26/24 09:01 Thrive Assessment: Date of Thrive Assessment Date Thrive assessed 07/29/24 02/14/25 14:48 Currently or been in a relationship where the following occur: No concerns reported Coding Diagnoses Normal physical examination, routine Z00.00 Migraine without aura and without status migrainosus, not intractable G43.009 Status migrainosus presence: without status migrainosus Intractability: not intractable Assessment & Plan Assessment & Plan (1) Normal physical examination, routine: Onset Date: ~02/14/25 Code(s): Z00.00 - Encounter for general adult medical examination without abnormal findings Category: Medical (2) Migraine without aura: Code(s): G43.009 - Migraine without aura, not intractable, without status migrainosus Category: Medical Qualifiers: Status migrainosus presence: without status migrainosus Intractability: not intractable Qualified Code(s): G43.009 - Migraine without aura, not intractable, without status migrainosus Patient Instructions: Health screenings for women You should visit your health care provider from time to time, even if you are healthy. The purpose of these visits is to: Screen for medical issues Assess your risk for future medical problems Encourage a healthy lifestyle Update vaccinations and other preventive care services Help you get to know your provider in case of an illness Information Even if you feel fine, you should still see your provider for regular checkups. These visits can help you avoid problems in the future. For example, the only way to find out if you have high blood pressure is to have it checked regularly. High blood sugar and high cholesterol levels also may not have any symptoms in the early stages. A simple blood test can check for these conditions. There are specific times when you should see your provider or receive specific health screenings. The [place] Preventive Services Task Force publishes a list of recommended screenings. Below are screening guidelines for women ages 18 to 39. BLOOD PRESSURE SCREENING Your blood pressure should be checked at least once every 3 to 5 years if: Your blood pressure is in the normal range (top number less than 120 mm Hg and bottom number less than 80 mm Hg) You don't have risk factors for high blood pressure Ask your provider if you need your blood pressure checked more often if: The top number is 120 to 129 mm Hg or the bottom number is 70 to 79 mm Hg You have diabetes, heart disease, kidney problems, are overweight, or have certain other health conditions You have a first-degree relative with high blood pressure You are Black You had high blood pressure during a If the top number is 130 mm Hg or greater or the bottom number is 80 mm Hg or greater, this is considered stage 1 hypertension. Schedule an appointment with your provider to learn how you can reduce your blood pressure. Watch for blood pressure screenings in your area. Ask your provider if you can stop in to have your blood pressure checked. BREAST CANCER SCREENING Experts do not agree about the benefits of breast self-exams in finding breast cancer or saving lives. Talk to your provider about what is best for you. A screening mammogram is not recommended for most women under age 40. Your provider may discuss and recommend mammograms, MRI scans, or ultrasounds if you have an increased risk for breast cancer, such as: A mother or sister who had breast cancer at a young age (most often starting screening earlier than the age the close relative was diagnosed) You carry a high-risk genetic marker CERVICAL CANCER SCREENING Cervical cancer screening should start at age 21 years unless your provider advises otherwise. After the first test: Women ages 21 through 29 should have a Pap test every 3 years. Exoprts do not agree on whether HPV testing is recommended for this age group. Women ages 30 through 65 should be screened with either a Pap test every 3 years or the HPV test every 5 years or both tests every 5 years (called cotesting ). Women who have been treated for precancer (cervical dysplasia) should continue to have Pap tests for 20 years after treatment or until age 65, whichever is longer. If you have had your uterus and cervix removed (total hysterectomy), and you have not been diagnosed with cervical cancer or precancer (high grade cervical neoplasia), you do not need cervical cancer screening. CHOLESTEROL SCREENING Cholesterol screening should begin at: Age 45 for women with no known risk factors for coronary heart disease Age 20 for women with known risk factors for coronary heart disease Repeat cholesterol screening should take place: Every 5 years for women with normal cholesterol levels More often if changes occur in lifestyle (including weight gain and diet) More often if you have diabetes, heart disease, kidney problems, or certain other conditions DIABETES SCREENING You should be screened for diabetes starting at age 35 and then repeated every 3 years if you have no risk factors for diabetes. Screening may need to start earlier and be repeated more often if you have other risk factors for diabetes, such as: You have a first degree relative with diabetes. You are overweight or have obesity. You have high blood pressure, prediabetes, or a history of heart disease. Screening for diabetes should be done if you are planning to become and you are overweight and have other risk factors such as high blood pressure. DENTAL EXAM Go to the dentist once or twice every year for an exam and cleaning. Your dentist will evaluate if you need more frequent visits. EYE EXAM Have an eye exam every 5 to 10 years before age 40. If you have vision problems, have an eye exam every 2 years or more often if recommended by your provider. You should have an eye exam that includes an examination of your retina (back of your eye) at least every year if you have diabetes. IMMUNIZATIONS Commonly needed vaccines include: Flu shot: get one every year. COVID-19 vaccine: ask your provider what is best for you. Tetanus-diphtheria and acellular pertussis (Tdap) vaccine: have one at or after age 19 as one of your tetanus-diphtheria vaccines if you did not receive it as an adolescent. Tetanus-diphtheria: have a booster (or Tdap) every 10 years. Varicella vaccine: receive 2 doses if you never had chickenpox or the varicella vaccine. Hepatitis B vaccine: receive 2, 3, or 4 doses, depending on your exact circumstances. Measles, mumps, and rubella (MMR) vaccine: receive 1 to 2 doses if you are not already immune to MMR. Your provider can tell you if you are immune. Ask your provider about the human papillomavirus (HPV) vaccine if: You have not received the HPV vaccine in the past You have not completed the full vaccine series (you should catch up on this shot) Ask your provider if you should receive other immunizations if you have certain health problems that increase your risk for some diseases such as pneumonia. INFECTIOUS DISEASE SCREENING Women who are sexually active should be screened for chlamydia and gonorrhea up until age 25. Women 25 years and older should be screened for chlamydia and gonorrhea if at high risk. Screening for hepatitis C: All adults ages 18 to 79 should get a one-time test for hepatitis C. people should be screened at every . Screening for human immunodeficiency virus (HIV): All people ages 15 to 65 should get a one-time test for HIV. Depending on your lifestyle and medical history, you may also need to be screened for infections such as syphilis and HIV, as well as other infections. PHYSICAL EXAM All adults should visit their provider from time to time, even if they are healthy. The purpose of these visits is to: Screen for disease Assess your risk of future medical problems Encourage a healthy lifestyle Update your vaccinations and other preventive care services Maintain a relationship with a provider in case of an illness Your height, weight, and BMI should be checked at every exam. During your exam, your provider may ask you about: Depression and anxiety Diet and exercise Alcohol and tobacco use Safety issues, such as using seat belts, smoke detectors, and intimate partner violence Your medicines and risk for interactions SKIN SELF-EXAM Your provider may check your skin for signs of skin cancer, especially if you're at high risk, such as if you: Have had skin cancer before Have close relatives with skin cancer Have a weakened immune system OTHER SCREENING Talk with your provider about colon cancer screening if you have a strong family history of colon cancer or polyps, or if you have had inflammatory bowel disease or polyps yourself. Routine bone density screening of women under 40 is not recommended.
--- NOTE | 2025-02-14 14:56 | A.OFFPC_ITS ---
Vital Signs 02/14/25 14:57 Height 5 ft 2 in Weight 167 lb 9 oz BMI 30.6 BP 132/74 Blood Pressure Location Lt brachial Position Sitting Respiration 13 Pulse 75 Pulse Source Pulse Oximeter Temp 97.2 F Temp Source Oral Pulse Oximetry (%) 98 Oxygen Delivery Method Room Air Intake Visit Reasons: 3 months CPE labs 1 week before Intake Note: CPE. Patient needs refill on Montelukast. Fast Brim Pouncer Required: No Allergies bee venom protein (honey bee) Allergy (Severe, Verified 02/14/25 14:56) Anaphylaxis tree nut Allergy (Severe, Verified 02/14/25 14:56) Anaphylaxis Medication List - Last Reconciled 02/14/25 by Yaritza Alexandra, CHANGE MANAGER- albuterol sulfate 90 mcg/actuation 2 puffs inhalation Q6H PRN epinephrine (EpiPen) 0.3 mg (0.3 mL) IM Q4H PRN estradiol 0.01%(0.1mg/gram) vaginal fluticasone furoate 50 mcg/actuation (Arnuity Ellipta) 1 inh inhalation DAILY PRN lansoprazole 30 mg PO DAILY magnesium 400 mg PO DAILY ondansetron 4 mg PO Q8H PRN propranolol 10 mg PO BID PRN riboflavin (vitamin B2) (Vitamin B-2) 400 mg PO DAILY sucralfate 1 g PO BEDTIME sumatriptan succinate take 1 tab at onset of headache; if no relief, may repeat 1 tab after at least 2 hrs; max = 2 tabs/24 hrs PO Synthroid (levothyroxine) 125 mcg PO DAILY NS triamcinolone acetonide 0.1% 1 appl topical BID Tobacco use date assessed: 02/14/25 Dental Screening Dental Screen Date: 02/14/25 Did you have a dental visit in the last 12 months?: Yes Did you have a dental problem in the last 6 months where you did not have access to dental care?: No Was dental information given to patient?: Patient has dentist HPI HPI Comments History of Present Illness Details 59 y/o F with asthma, migraines w/o aura , thyroid ca s/p thyroidectomy, former smoker, obesity , menopause, MARE, hypothyroidism, HLD, chronic low back pain, vit d def, hiatal hernia s/p c section, adenoidectomy, sinus surgery, hysterectomy, cervical disc replacement , total thyroidectomy Family hx: kidney ca, htn, heart dz, thyroid disorder, colon polyp Social: , now has boyfriend Health Maintenance Pap: 2020 Colon 2007, 2024 [facility] [place]ammo ordered and pending Flu declined Tdap declined [facility] Derm active for routine fu Optho wears glasses, last exam > 5 years ago. Advised to schedule updated exam. 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 Hormonal headaches - started on vaginal hormones; wants US done. She will schedule this. Due for labs and mammo today Has RUQ pain after eating greasy foods. Has fu with GI in Apr. Told her to mention this to them Active w care team Cannot lose weight, wants wt mgmt referral. Made aware GLP1 is contraindicated given thyroid ca history. - Hyperlipidemia citrus bergamot - Hypothyroidism stable on current meds - Anxiety addressed with twice-daily dos ing propanolol, taking 1.5 tabs at HS with improved effect. - Asthma under control ROS - Digestive: Reports GERD, gastritis, es ophageal issues due to hernia. - Neurological: Reports headaches. - General: Reports poor sleep quality, f atigue. - Respiratory: Denies respiratory infect ions. - Cardiovascular: Reports hypertension. - Endocrine: Reports history of hyperthy roidism. - Psychiatric: Occasionally anxious, cur rently managed with edibles and propranolol. Exam: General: Well developed, well nourished, in no acute distress. Appears stated age. Head: Normocephalic, atraumatic. Eyes: Pupils are equal, round and reactive to light and accommodation. Conjunctivae are clear. Scleras nonicteric bilat. Vision grossly normal. Ears: TMs clear AU, EACS WNL Nose: Patent, without discharge. Neck: No carotid bruit bilat. Supple, no adenopathy or thyromegaly. Breast: Edu on SBE Lungs: Clear to auscultation bilaterally. No rales, rhonchi or wheeze noted. Good air flow in all johns. Heart: Regular rate and rhythm. No murmurs, click, rubs or gallops are noted. Abdomen: Bowel sounds present in all quadrants. The abdomen is soft, nontender, with no masses or organomegaly noted. No hernias are noted. Tenderness noted in the right upper quadrant. : Deferred. 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 Extremities: No clubbing, cyanosis nor edema is noted. Neurologic: Gait and station normal. Cranial Nerves 2-12 intact. Motor strength grossly symmetrical and intact. No sensory loss. Balance normal. Skin: No rashes, ulcers, or lesions noted. Turgor is good. Skin color is good. Hair and nails are without abnormalities. Psych: Normal eye contact, affect and mood appropriate, and normal interactions. Patient is alert and appropriate to context. Results Pending Discussion Notes We discussed at length the patient's chronic conditions and how they are being managed. Current treatment for headaches involves magnesium, riboflavin, Excedrin, and Imitrex; effectiveness noted, and we will continue management. Sleep disturbance was discussed with the recommendation for a home sleep study due to reports of snoring and possible apnea. The necessity to maintain her current management without new systemic pharmacological intervention, considering her history of hypothyroidism, was emphasized. No additional vaccines were administered per patient preference. We emphasized the importance of weight management and its influence on reducing sleep disturbances and alleviating pressure symptoms due to GERD. Consent was verbal for weight management referral and sleep study arrangements. Patient was given time to ask questions. All questions were answered to their satisfaction. Assessment and Plan 1. Hyperlipidemia - Cont [place] bergamot supplements; rech mari lipids in three months. 2. Hypothyroidism - Continue Synthroid at night; 3. Anxiety - Maintain current medication regimen. 4. Gastrointestinal Distress - FU with GI 5. Headaches - Use OTC oxygen, continue Imitrex; tria l otc excedrin, consider Fioricet with codeine only if other tx do not work. 6. Menopausal Symptoms - Continue magnesium and riboflavin; mon itor for symptom changes. - active w/ specialist - matt wei 7. Increased Body Mass Index - referral to weight management 8. Sleep study to r/o MIRTA . RTO 5-6 mo with labs for routine fu, sooner as needed. Consent Patient was informed and verbally consented to the use of an ambient scribe for clinic note documentation during this visit. An additional 20 minutes was spent addressing the problem(s) noted at todays visit. This includes time spent before the visit reviewing the chart, time spent during the visit, and time spent after the visit on documentation reviewing laboratory results, diagnostic imaging, medications, performing a medically necessary evaluation, counseling on diagnoses, care coordination, ordering appropriate tests, ordering appropriate medications, review of tests performed by other providers, reporting test results with the patient, communication with other healthcare providers. [facility] Medical History (Updated 02/14/25 @ 15:19 by Yaritza Alexandra [facility]) Arthritis Asthma delivery delivered Joint pain Migraines Thyroid cancer Surgical History (Updated 02/14/25 @ 15:04 [facility] H/O adenoidectomy H/O sinus surgery History of bilateral carpal tunnel release History of colonoscopy (~10/2024) History of hysterectomy Hx of thyroidectomy Hx of tonsillectomy Hx of tubal ligation S/P cervical disc replacement Family History Other Cancer of kidney Colon polyps Heart disease Hypertension Thyroid disorder Social History Housing: House Patient Tobacco Use Status: Former Tobacco user e-Cigarette/Vaping Use: Never Used Second Hand Smoke Exposure: No service: No Current occupational status: employed 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 Cognitive needs: No Hearing needs: No Vision needs: Yes Questionnaire Thrive Questionnaire Date Thrive assessed: 07/29/24 I am a: Patient What is your living situation today?: I have a steady place to live Within the past 12 months, did the food you bought not last and you didn't have the money to get more?: Never true Within the past 12 months, did you worry whether your food would run out before you got money to buy more?: Never true Do you have trouble paying for medicines?: No Do you have trouble getting transportation to medical appointments?: No Do you have trouble paying your heating and electricity bill?: No Do you have trouble taking care of your child, family member or friend?: No Do you have trouble with day-to-day activities such as bathing, preparing meals, shopping, managing finances, etc.?: No Are you currently unemployed and looking for a job?: No Are you interested in more education?: I choose not to answer this question Please select the resources that you would like help with: None Currently or been in a relationship where the following occur: No concerns reported THRIVE Score: 0 MARE-7 AMB Questionnaire MARE-7 Date MARE - 7 assessed: 11/26/24 Source: Developed by Drs. Johnny Golden, Sherlyn Luis, Marc Lopez and colleagues, with an educational dustin from [employer]. Physical exam (Primary Care) Vital Signs: Last Vital Signs Temp 97.2 F 02/14/25 14:57 Pulse 75 02/14/25 14:57 Resp 13 02/14/25 14:57 BP 132/74 02/14/25 14:57 Pulse Ox 98 02/14/25 14:57 Oxygen Delivery Method Room Air 02/14/25 14:57 BMI result Body Mass Index 30.6 BMI Assessment/Plan discussion: High BMI High, discussed plan: lifestyle Tobacco/Smoking Status: Tobacco use Status Tobacco use date assessed 02/14/25 02/14/25 14:58 Patient Tobacco Use Status Former Tobacco user 02/14/25 14:58 Tobacco use type 11/03/23 10:11 e-Cigarette/Vaping Use Never Used 02/14/25 14:58 Thrive Assessment: Date of Thrive Assessment Date Thrive assessed 07/29/24 02/14/25 14:58 Currently or been in a relationship where the following occur: No concerns reported Coding Level of Care Code Est Pt Level 2 (18325) Est Pt Prev Care 40-64y(39412) Diagnoses Normal physical examination, routine Z00.00 Obesity (BMI 30-39.9) E66.9 Influenza vaccination declined Z28.21 Tetanus, diphtheria, and acellular pertussis (Tdap) vaccination declined Z28.21 Witnessed episode of apnea R06.81 Vitamin D deficiency E55.9 Postoperative hypothyroidism E89.0 Hypothyroidism type: postoperative Hypercholesterolemia E78.00 Anxiety F41.9 Breast cancer screening by mammogram Z12.31 Thyroid cancer C73 Migraine without aura and without status migrainosus, not intractable G43.009 Status migrainosus presence: without status migrainosus Intractability: not intractable Moderate persistent asthma without complication J45.40 Asthma severity: moderate Asthma persistence: persistent Asthma complication type: uncomplicated Assessment & Plan Assessment & Plan (1) Normal physical examination, routine: Onset Date: ~02/14/25 Code(s): Z00.00 - Encounter for general adult medical examination without abnormal findings Category: Medical (2) Obesity (BMI 30-39.9): Code(s): E66.9 - Obesity, unspecified Category: Medical (3) Influenza vaccination declined: Onset Date: ~02/14/25 Code(s): Z28.21 - Immunization not carried out because of patient refusal Category: Medical (4) Tetanus, diphtheria, and acellular pertussis (Tdap) vaccination declined: Onset Date: ~02/14/25 Code(s): Z28.21 - Immunization not carried out because of patient refusal Category: Medical (5) Witnessed episode of apnea: Code(s): R06.81 - Apnea, not elsewhere classified Category: Medical (6) Vitamin D deficiency: Code(s): E55.9 - Vitamin D deficiency, unspecified Category: Medical (7) Hypothyroidism: Code(s): E03.9 - Hypothyroidism, unspecified Category: Medical Qualifiers: Hypothyroidism type: postoperative Qualified Code(s): E89.0 - Postprocedural hypothyroidism (8) Hypercholesterolemia: Code(s): E78.00 - Pure hypercholesterolemia, unspecified Category: Medical (9) Anxiety: Code(s): F41.9 - Anxiety disorder, unspecified Category: Medical (10) Breast cancer screening by mammogram: Code(s): Z12.31 - Encounter for screening mammogram for malignant neoplasm of breast Category: Medical (11) Thyroid cancer: Comment: s/p thyroidectomy Code(s): C73 - Malignant neoplasm of thyroid gland Category: Medical (12) Migraine without aura: Code(s): G43.009 - Migraine without aura, not intractable, without status migrainosus Category: Medical Qualifiers: Status migrainosus presence: without status migrainosus Intractability: not intractable Qualified Code(s): G43.009 - Migraine without aura, not intractable, without status migrainosus (13) Asthma: Code(s): J45.909 - Unspecified asthma, uncomplicated Category: Medical Qualifiers: Asthma severity: moderate Asthma persistence: persistent Asthma complication type: uncomplicated Qualified Code(s): J45.40 - Moderate persistent asthma, uncomplicated Plan . Orders: Orders TSH reflex Free T4 4 Months E55.9 - Vitamin D deficiency, unspecified, E78.00 - Pure hypercholesterolemia, unspecified, E89.0 - Postprocedural hypothyroidism RT home sleep study Today R06.81 - Apnea, not elsewhere classified, R06.83 - Snoring Lipid Panel 4 Months E55.9 - Vitamin D deficiency, unspecified, E78.00 - Pure hypercholesterolemia, unspecified, E89.0 - Postprocedural hypothyroidism Vitamin D 25-OH Total 4 Months E55.9 - Vitamin D deficiency, unspecified MM tomosynthesis screening BI Today Z12.31 - Encounter for screening mammogram for malignant neoplasm of breast Referrals Medical Weight Management Referral E66.9 - Obesity, unspecified Patient Instructions: Health screenings for women You should visit your health care provider from time to time, even if you are healthy. The purpose of these visits is to: Screen for medical issues Assess your risk for future medical problems Encourage a healthy lifestyle Update vaccinations and other preventive care services Help you get to know your provider in case of an illness Information Even if you feel fine, you should still see your provider for regular checkups. These visits can help you avoid problems in the future. For example, the only way to find out if you have high blood pressure is to have it checked regularly. High blood sugar and high cholesterol levels also may not have any symptoms in the early stages. A simple blood test can check for these conditions. There are specific times when you should see your provider or receive specific health screenings. The [place] Preventive Services Task Force publishes a list of recommended screenings. Below are screening guidelines for women ages 18 to 39. BLOOD PRESSURE SCREENING Your blood pressure should be checked at least once every 3 to 5 years if: Your blood pressure is in the normal range (top number less than 120 mm Hg and bottom number less than 80 mm Hg) You don't have risk factors for high blood pressure Ask your provider if you need your blood pressure checked more often if: The top number is 120 to 129 mm Hg or the bottom number is 70 to 79 mm Hg You have diabetes, heart disease, kidney problems, are overweight, or have certain other health conditions You have a first-degree relative with high blood pressure You are Black You had high blood pressure during a If the top number is 130 mm Hg or greater or the bottom number is 80 mm Hg or greater, this is considered stage 1 hypertension. Schedule an appointment with your provider to learn how you can reduce your blood pressure. Watch for blood pressure screenings in your area. Ask your provider if you can stop in to have your blood pressure checked. BREAST CANCER SCREENING Experts do not agree about the benefits of breast self-exams in finding breast cancer or saving lives. Talk to your provider about what is best for you. A screening mammogram is not recommended for most women under age 40. Your provider may discuss and recommend mammograms, MRI scans, or ultrasounds if you have an increased risk for breast cancer, such as: A mother or sister who had breast cancer at a young age (most often starting screening earlier than the age the close relative was diagnosed) You carry a high-risk genetic marker CERVICAL CANCER SCREENING Cervical cancer screening should start at age 21 years unless your provider advises otherwise. After the first test: Women ages 21 through 29 should have a Pap test every 3 years. Exoprts do not agree on whether HPV testing is recommended for this age group. Women ages 30 through 65 should be screened with either a Pap test every 3 years or the HPV test every 5 years or both tests every 5 years (called cotesting ). Women who have been treated for precancer (cervical dysplasia) should continue to have Pap tests for 20 years after treatment or until age 65, whichever is longer. If you have had your uterus and cervix removed (total hysterectomy), and you have not been diagnosed with cervical cancer or precancer (high grade cervical neoplasia), you do not need cervical cancer screening. CHOLESTEROL SCREENING Cholesterol screening should begin at: Age 45 for women with no known risk factors for coronary heart disease Age 20 for women with known risk factors for coronary heart disease Repeat cholesterol screening should take place: Every 5 years for women with normal cholesterol levels More often if changes occur in lifestyle (including weight gain and diet) More often if you have diabetes, heart disease, kidney problems, or certain other conditions DIABETES SCREENING You should be screened for diabetes starting at age 35 and then repeated every 3 years if you have no risk factors for diabetes. Screening may need to start earlier and be repeated more often if you have other risk factors for diabetes, such as: You have a first degree relative with diabetes. You are overweight or have obesity. You have high blood pressure, prediabetes, or a history of heart disease. Screening for diabetes should be done if you are planning to become and you are overweight and have other risk factors such as high blood pressure. DENTAL EXAM Go to the dentist once or twice every year for an exam and cleaning. Your dentist will evaluate if you need more frequent visits. EYE EXAM Have an eye exam every 5 to 10 years before age 40. If you have vision problems, have an eye exam every 2 years or more often if recommended by your provider. You should have an eye exam that includes an examination of your retina (back of your eye) at least every year if you have diabetes. IMMUNIZATIONS Commonly needed vaccines include: Flu shot: get one every year. COVID-19 vaccine: ask your provider what is best for you. Tetanus-diphtheria and acellular pertussis (Tdap) vaccine: have one at or after age 19 as one of your tetanus-diphtheria vaccines if you did not receive it as an adolescent. Tetanus-diphtheria: have a booster (or Tdap) every 10 years. Varicella vaccine: receive 2 doses if you never had chickenpox or the varicella vaccine. Hepatitis B vaccine: receive 2, 3, or 4 doses, depending on your exact circumstances. Measles, mumps, and rubella (MMR) vaccine: receive 1 to 2 doses if you are not already immune to MMR. Your provider can tell you if you are immune. Ask your provider about the human papillomavirus (HPV) vaccine if: You have not received the HPV vaccine in the past You have not completed the full vaccine series (you should catch up on this shot) Ask your provider if you should receive other immunizations if you have certain health problems that increase your risk for some diseases such as pneumonia. INFECTIOUS DISEASE SCREENING Women who are sexually active should be screened for chlamydia and gonorrhea up until age 25. Women 25 years and older should be screened for chlamydia and gonorrhea if at high risk. Screening for hepatitis C: All adults ages 18 to 79 should get a one-time test for hepatitis C. people should be screened at every . Screening for human immunodeficiency virus (HIV): All people ages 15 to 65 should get a one-time test for HIV. Depending on your lifestyle and medical history, you may also need to be screened for infections such as syphilis and HIV, as well as other infections. PHYSICAL EXAM All adults should visit their provider from time to time, even if they are healthy. The purpose of these visits is to: Screen for disease Assess your risk of future medical problems Encourage a healthy lifestyle Update your vaccinations and other preventive care services Maintain a relationship with a provider in case of an illness Your height, weight, and BMI should be checked at every exam. During your exam, your provider may ask you about: Depression and anxiety Diet and exercise Alcohol and tobacco use Safety issues, such as using seat belts, smoke detectors, and intimate partner violence Your medicines and risk for interactions SKIN SELF-EXAM Your provider may check your skin for signs of skin cancer, especially if you're at high risk, such as if you: Have had skin cancer before Have close relatives with skin cancer Have a weakened immune system OTHER SCREENING Talk with your provider about colon cancer screening if you have a strong family history of colon cancer or polyps, or if you have had inflammatory bowel disease or polyps yourself. Routine bone density screening of women under 40 is not recommended.
[2025-02-14 14:57] VITALS: BP 132/74; PULSE 75; RESP 13; TEMP 36.2; O2SAT 98; BMI 30.6
--- OUTSIDE RECORDS SUMMARY | 2025-02-14 17:12 | XMS_ITS | Clinical Summary ---
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 Name Role Phone Lashell, Nuvia Prieto APRN Primary Care Provider Tommy Handy MD Unavailable Allergies No known [...] 99 01/31/2023 11:49 AM EDT Temperature 36.8 C (98.2 F) 01/31/2023 11:49 AM EDT Respiratory Rate 16 01/31/2023 11:49 AM EDT [...] Vaccine (1 of 2) 09/23/2017 Influenza Vaccine 12/10/2024 COVID-19 Vaccine (2024-2 6 season) 2025 05/22/2021, 09/30/2020, 09/02/2020, Additional history exists Medical Devices Implanted Type Area Tube Maker Device Identifier Shelf Expiration Date Model / Serial / Lot 55 Mm Plate Med[employer]onic # [id number] Implanted:Qty : 1 on 10/18/2015 by Se Floyd MD at [facility] Plate N/A: Spine Cervical [id number] / / Description:cervical Lordotic Sr Cortical Block [id number] Implanted:Qty : 1 on 10/18/2015 by Se Floyd MD at [facility] Spine N/A: Spine Cervical [employer] 07/25/2018 [id number] / [id number] / [id number] Lordotic Sr Cortical Block [id number] Implanted:Qty : 1 on 10/18/2015 by Se Floyd MD at [facility] Spine N/A: Spine Cervical [employer] 07/25/2018 [id number] / [id number] / [id number] Lordotic Sr Cortical Block [id number] Implanted:Qty : 1 on 10/18/2015 by Se Floyd MD at [facility] Spine N/A: Spine Cervical [employer] 06/21/2018 [id number] / [id number] / [id number] Graft Bone Grftn Dbm 1ml Putty Jar - [id number] Implanted:Qty : 1 on 10/18/2015 by Se Floyd MD at [facility] Tissue [employer] 03/29/2018 [id number] / [id number] / 3.5x15mm Vasd Screw Implanted:Qty : 1 on 10/18/2015 by Se Floyd MD at [facility] N/A: Spine Cervical [employer] [id number] / / Insurance [facility] [place] [phone] [facility] Advance Directives * Full Code (Latest Code Status on File) Date Activated Date Inactivated Comments 10/18/2015 6:16 PM 10/20/2015 5:34 PM Care Teams Telephone Maintenance Mechanic Relationship Specialty Start Date End Date LashellNuvia APRN PCP - General 10/18/15 Tommy Handy MD [address] [place] [id number] 07/20/12
--- OUTSIDE RECORDS SUMMARY | 2025-02-14 17:12 | XMS_ITS | Encounter Summary ---
Author Organization [facility] Address [address] [place] [address] Care Team Providers Care Act Tutor Name Role Phone Tommy Handy MD Primary Care Provider [phone] Tamela Dela Cruz APRN Primary Care Provider Riri ray Pcp, No Primary Care Provider UnavailBarbara Lopez APRN Primary Care Provider [phone] Tommy Handy MD Unavailable Encounter Details Date Type Department Care Team (Late st Contact Info) Description 05/29/2015 Scanned Document [address] [address] Provider, Generic Social History Tobacco [...] on filedocumented in this encounter Care Teams Act Tutor Relationship Specialty Start Date End Date Tommy Handy MD [address] [place] [address] PCP - General 07/20/12 09/24/15 Tamela Dela Cruz APRN [address] [place] [address] PCP - General Internal Medicine 09/25/15 10/02/15 Pcp, Latoya PCP - General General Medicine 10/04/15 10/17/15 Barbara Lobo APRN PCP - General 10/18/15 Tommy Handy MD [address] [place] [address] 07/20/12 documented as of this encounter
--- OUTSIDE RECORDS SUMMARY | 2025-02-14 17:12 | XMS_ITS | Encounter Summary ---
Author Organization [facility] Address [address] [place] [address] Care Team Providers Care Advertising Internship Name Role Phone DENY Avery Monika Primary Care Provider [phone] DENY Avery Monika Unavailable [phone] Reason for Visit * Reason Comments E-prescribing Refill Request Encounter Details Date Type Department Care Team (Late st Contact Info) Description 05/15/2024 Refill [facility] [address] [place] [phone] Sydney Avery PA [address] [place], [place] [address] E-prescribing Refill Request Social History Tobacco Use [...] Pressure 138/74(2023 12:37 PM EST) No Jennie aMrtinez LVN LPN Note: Above is your goal [...] hypercholesterolemia documented in this encounter Care Teams Advertising Internship Relationship Specialty Start Date End Date Sydney Avery PA [address] [place] [address] PCP - General 12/16/22 Sydney Avery PA [address] [place] [address] PCP - Backup PCP Family Medicine 06/11/23 documented as of this encounter
--- OUTSIDE RECORDS SUMMARY | 2025-02-14 17:12 | XMS_ITS | Clinical Summary ---
Author Organization [facility] Address [address] [place] [address] Care Team Providers Care Tennis Camp Instructor Name Role Phone DENY Avery Monika Primary Care Provider [phone] DENY Avery Monika Unavailable [phone] Allergies Active Allergy Reactions Criticality Noted Date [...] Back pain 12/10/2018 Bee sting allergy 08/20/2018 Crandall allergy 08/20/2018 Hyperlipidemia 06/09/2018 Chronic sinusitis 06/05/2018 Allergic rhinitis 06/05/2018 Elevated liver function tests 05/21/2018 Benign essential hypertension 04/24/2018 Overview (06/16/2023): Transitioned From: Elevated blood pressure reading without diagnosis of hypertension Hypothyroidism 04/24/2018 Migraines 04/24/2018 Overview (06/16/2023): Transitioned From: Headache Immunizations Immunization Administration Dates Next Due COVID-19, mRNA (Moderna [...] 90 05/29/2023 12:37 PM EST Temperature 36.4 C (97.6 F) 05/29/2023 12:37 PM EST Respiratory Rate 18 05/29/2023 12:3 [...] (2 of 2) 01/04/2021 11/09/2020 COVID-19 Vaccine ( season) 2025 09/02/2020, 07/21/2020 Influenza (#1) 2025 Hepatitis C Screening Completed 06/05/2018 Physical Discontinued 11/09/2020 Chest Imaging Discontinued 04/09/2021, 05/15/2018 LDL Cholesterol Discontinued 06/21/2023, 01/10, 11/11/2020, Additional history exists HPV Vaccine (No Doses Required) Completed Hep A Aged Out No longer eligi [...] PM EST FASTING: YES Testing Performed at: [facility], [address] [place], [place] [address], , Information Systems Audit Manager: Edith Graves MD CL#[id number] [facility] Final Result ORCHARD HARVEST [address] [place] [address], [place] [phone] * XRAY CHEST, 2 VIEWS, PA & LATERAL FC (04/09/2021 11:15 AM EST) [facility] IMAGING STUDY Exam: X-ray chest 2 views No infiltrates or pleural effusions. No failure or fluid overload. Operative change lower cervical spine. Thoracic spine appears intact. Heart size is normal. IMPRESSION: No acute findings Electronically signed by Ty Nelson MD [facility] PHCT CONVERSIONS Anatomical Region Laterality Modality CHEST Radiographic Mary ging 04/09/2021 11:1 5 AM EST Chidi Davis MD IMG XRAY NO CONTRAST ORDERABLE S Final Result * HEPATITIS PANEL, ACUTE W/REFLEX (06/05/2018 7:48 AM EST) [facility] HEPATITIS A IGM NON-REACT SHANIA NON-REACT SHANIA [...] 06/05/2018 7:39 PM EST Testing Performed at: [facility], [address] [place] [address], [place] [address], , Information Systems Audit Manager: Mariann Talley MD CL#[id number] us DENY [facility] Final Result PHCT CONVERSIONS * MAMMOGRAM SCREENING , BILATERAL FC (09/03/2017 9:28 AM EDT) BI-RADS CODE BI-RADS Category 2: Continue Routine Screening PHCT CONVERSIONS Anatomical Region Laterality Modality BREAST Bilateral Mammography 09/03/2017 9:28 AM EDT us Php Unknown Prov IMG MAMMO ORDERABLES Final Resu lt from Last 3 Months or Most Recently Relevant to Health Maintenance Care Teams Tennis Camp Instructor Relationship Specialty Start Date End Date Sydney Avery PA [address] [place] [address] PCP - General 12/16/22 Sydney Avery PA [address] [place] [address] PCP - Backup PCP Family Medicine 06/11/23
--- OUTSIDE RECORDS SUMMARY | 2025-02-14 17:12 | XMS_ITS | Encounter Summary ---
Author Organization [facility] Address [address] [place] [address] Care Team Providers Care Television Servicer Name Role Phone Tamlea Dela Cruz APRN Primary Care Provider Riri ray Pcp, No Primary Care Provider Barbara Lucero APRN Primary Care Provider [phone] Tommy Handy MD Unavailable Encounter Details Date Type Department Care Team (Late st Contact Info) Description 10/02/2015 Prep for Surgery [facility] Neurosurgery [place] [address] [place] [address] Se Floyd MD [address] [address] Social History Tobacco Use Types Packs/Day Years [...] on filedocumented in this encounter Care Teams Television Servicer Relationship Specialty Start Date End Date Tamela Dela Cruz APRN PCP - General Internal Medicine 09/25/15 10/02/15 Pcp, No PCP - General General Medicine 10/04/15 10/17/15 Barbara Lobo APRN PCP - General 10/18/15 Tommy Handy MD [address] [address] 07/20/12 documented as of this encounter
--- OUTSIDE RECORDS SUMMARY | 2025-02-14 17:12 | XMS_ITS | Encounter Summary ---
Author Organization [facility] Address [address] [place], [place] [id number] Care Team Providers Care Combine Mechanic Name Role Phone Tamela Dela Cruz APRN Primary Care Provider Riri ray Pcp, No Primary Care Provider Barbara Lucero APRN Primary Care Provider [phone] Tommy Handy MD Unavailable Encounter Details Date Type Department Care Team (Late st Contact Info) Description 09/27/2015 Scanned Document [address] [address] Provider, Generic Social History Tobacco [...] on filedocumented in this encounter Care Teams Combine Mechanic Relationship Specialty Start Date End Date Tamela Dela Cruz APRN PCP - General Internal Medicine 09/25/15 10/02/15 Pcp, No PCP - General General Medicine 10/04/15 10/17/15 Barbara Lobo APRN PCP - General 10/18/15 Tommy Handy MD [address] [place] [address] 07/20/12 documented as of this encounter
--- OUTSIDE RECORDS SUMMARY | 2025-02-14 17:12 | XMS_ITS | Encounter Summary ---
Author Organization [facility] Address [address] [place] [address] Care Team Providers Care Senior Chemical Engineer Name Role Phone Pcp, Latoya Primary Care Provider Barbara Lucero APRN Primary Care Provider [phone] Tommy Handy MD Unavailable Encounter Details Date Type Department Care Team (Late st Contact Info) Description 10/12/2015 Scanned Document [facility] Neurosurgery [place] [address] [place] [address] Se Floyd MD 85 [facility] [address] [place] [address] Social History Tobacco Use Types Packs/Day Years [...] on filedocumented in this encounter Care Teams Senior Chemical Engineer Relationship Specialty Start Date End Date Pcp, Latoya PCP - General General Medicine 10/04/15 10/17/15 Barbara Lobo APRN PCP - General 10/18/15 Tommy Handy MD [address] [place] [address] 07/20/12 documented as of this encounter
--- OUTSIDE RECORDS SUMMARY | 2025-02-14 17:12 | XMS_ITS | Encounter Summary ---
Author Organization [facility] Address [address] [place] [address] Care Team Providers Care Pharmacy Informatics Specialist Name Role Phone DENY Avery Monika Primary Care Provider [phone] DENY Avery Monika Unavailable [phone] Encounter Details Date Type Department Care Team (Late st Contact Info) Description 06/21/2023 Orders Only [facility] [address] [place] [address] Sydney Avery PA [address] [place], [place] [address] Medications Social History Tobacco Use Types Packs/Day [...] 138/74(2023 12:37 PM EST) No Jennie Martinez, DOCUMENTATION ANALYST Note: Above is your goal for blood [...] AM EST) Bacteria culture (Urine) SEE NOTE ORCHARD HARVEST Comment: CULTURE, URINE, ROUTINE Micro Number: [id number] Test Status: Final Specimen Source: Urine Specimen Quality: Adequate Result: Less than 10,000 CFU/mL of single Gram positive organism isolated. No further testing will be performed. If clinically indicated, recollection using a method to minimize contamination, with prompt transfer to Urine Culture Transport Tube, is recommended. 06/21/2023 11:2 9 AM EST 06/21/2023 4:59 PM EST Narrative ORCHARD HARVEST - 06/23/2023 5:00 AM EST [facility] Testing performed at: [facility], [facility], [address] [place] [address], [id number], Sole Stapler Welt: Valerie Denton M.D. [facility] Collection Date/Time: [id number] [facility] Results Received Date/Time: [id number] [facility] Reported Date/Time: [id number] DENY [facility] Final Result Performing Organization Address City/[facility]/ZIP Co de Phone Number ORCHARD HARVEST [address] [place] [address], * (ABNORMAL) LIPID PANEL WITH REFLEX TO [...] PM EST FASTING: YES Testing Performed at: [facility], [address] [place] [address], , Sole Stapler Welt: Edith Graves MD CL#[id number] DENY Garcia [facility] Final Result Performing Organization Address [facility] Co de Phone Number ORCHARD HARVEST [address] [place] [address], * THYROID STIMULATING HORMONE (TSH) WITH FREE T4 REFLEX, SERUM (06/21/2023 11:29 AM EST) TSH (Thyrotropin) 3.34 0.50 - 4.80 uIU/ml ORCH[facility] HARVEST 06/21/2023 11:2 9 AM EST 06/21/2023 4:59 PM EST Narrative ORCHARD HARVEST - 06/21/2023 5:33 PM EST Testing Performed at: [facility], [address] [place] [address], , Sole Stapler Welt: Edith Graves MD CL#[id number] DENY [facility]re[facility] Final Result ORCHARD HARVEST [address] [place] [address]. [place] [address], * (ABNORMAL) COMPREHENSIVE METABOLIC PANEL WITH GFR (06/21/2023 11:29 AM EST) Glucose 110(H) 65 - 99 mg/dL OR[facility]VEST Comment:Fasting Reference In terval Urea Nitrogen Blood (BUN) 15 6 - 20 mg/dL [facility] Creatinine 0.6 0.4 - 1.1 mg/dL ORCHARD HARVEST GFR 105 >=60 ORCHARD HARVEST Comment: Units of measure for estimated Glomular Filtration Rate: mL/min/1.73m2. eGFR calculation is only valid for adults 18-85 years of age. Stages of Chronic Kidney Disease Stage GFR 3 30-59 4 15-29 5 <15 Sodium 142 133 - 145 mmol/L [...] PM EST FASTING: YES Testing Performed at: [facility], [address] [place] [address], , Sole Stapler Welt: Edith Graves MD CL#[id number] us DENY [facility]der[facility] Final Result [facility] [place] [address], documented in this encounter Visit Diagnoses Diagnosis Urgency of urination Abnormal results of liver function studies Nonspecific abnormal results of liver function study Hypothyroidism, unspecified Hyperlipidemia, unspecified documented in this encounter Care Teams Pharmacy Informatics Specialist Relationship Specialty Start Date End Date Sydney Avery PA [address] [place] [id number] PCP - General 12/16/22 Sydney Avery PA [address] [place] [address] PCP - Backup PCP Family Medicine 06/11/23 documented as of this encounter
--- OUTSIDE RECORDS SUMMARY | 2025-02-14 17:12 | XMS_ITS | Encounter Summary ---
Author Organization [facility] Address [address] [place] [address] Care Team Providers Care Master Control Operator Name Role Phone DENY Avery Monika Primary Care Provider [phone] DENY Avery Monika Unavailable [phone] Reason for Visit * Reason Comments E-prescribing Refill Request Encounter Details Date Type Department Care Team (Late st Contact Info) Description 11/13/2024 [facility] [address] [place] [phone] Sydney Avery PA [address] [place], [place] [address] E-prescribing Refill Request Social History Tobacco Use Types Packs/Day Years Used Date Smoking Tobacco: Never Assessed Comments:Smoking Status:No c urrent tobacco use Comments Unknown Sex and Gender Information Value Date Recorded Sex Assigned at Not on file Legal Sex Female 4:31 PM EDT Gender Identity Not on file Sexual Orientation Not on file documented as of this encounter Miscellaneous Notes * Telephone Encounter - Brandi Altman - 11/17/2024 8:06 AM EDT Sent letter to patient unable to get ahold of you * Telephone Encounter - Brandi Altman - 11/16/2024 7:18 AM EDT LVM to call office and set up appointment for med refills or to see if she is still seen here, willpostpone until tomorrow and f/u and no appts will then send letter * Telephone Encounter - Brandi Altman - 11/15/2024 8:55 AM EDT LVM to call office and set up appointment will postpone until tomorrow and check again * Telephone Encounter - Kirsten Leija - 11/15/2024 8:48 AM EDT No pending appointments, can you please reach out for scheduling? documented in this encounter Plan of Treatment Not on [...] on filedocumented in this encounter Care Teams Master Control Operator Relationship Specialty Start Date End Date Sydney Avery PA [address] [place] [address] PCP - General 12/16/22 Sydney Avery PA [address] [place], [place] [id number] PCP - Backup PCP Family Medicine 06/11/23 documented as of this encounter
--- OUTSIDE RECORDS SUMMARY | 2025-02-14 17:12 | XMS_ITS | Encounter Summary ---
Author Organization [facility] Address [address] [place] [address] Care Team Providers Care Tea Bag Machine Tender Name Role Phone Tommy Handy MD Primary Care Provider [phone] Tamela Dela Cruz APRN Primary Care Provider Riri ray Pcp, No Primary Care Provider UnavailBarbara Lopez APRN Primary Care Provider [phone] Tommy Handy MD Unavailable Encounter Details Date Type Department Care Team (Late st Contact Info) Description 08/23/2015 Scanned Document [address] [address] Provider, Generic Social History Tobacco [...] on filedocumented in this encounter Care Teams Tea Bag Machine Tender Relationship Specialty Start Date End Date Tommy Handy MD [address] [place] [address] [address] [place] [address] PCP - General 07/20/12 09/24/15 Tamela Dela Cruz APRN [address] [address] PCP - General Internal Medicine 09/25/15 10/02/15 Pcp, No PCP - General General Medicine 10/04/15 10/17/15 Barbara Lobo APRN PCP - General 10/18/15 Tommy Handy MD [address] [address] 07/20/12 documented as of this encounter
== END 2025-02-14 15:36 | disposition home or self-care (01) ==
LOC: HO.HMCFM 14:48
PROVIDERS: PCP Nurse Practitioner Family; Visit Provider Nurse Practitioner Family
DX: Z00.00 Encounter for general adult medical examination without abnormal findings (principal); C73 Malignant neoplasm of thyroid gland; E66.9 Obesity, unspecified; Z68.30 Body mass index [BMI] 30.0-30.9, adult; Z28.21 Immunization not carried out because of patient refusal; R06.81 Apnea, not elsewhere classified; E55.9 Vitamin D deficiency, unspecified; E89.0 Postprocedural hypothyroidism; E78.00 Pure hypercholesterolemia, unspecified; F41.9 Anxiety disorder, unspecified; G43.009 Migraine without aura, not intractable, without status migrainosus; J45.40 Moderate persistent asthma, uncomplicated

== ENCOUNTER 2025-02-23 15:12 | Outpatient (AMB) | payer BC, SELFPAY ==
--- OUTSIDE RECORDS SUMMARY | 2020-08-06 12:41 | XMS_ITS | Encounter Summary ---
Author Organization [facility] Address [address] [place] [address] Care Team Providers Care Assembler Type Bar And Segment Name Role Phone Barbara Lobo Conner MITCHELL Primary Care Provider [phone] Tommy Handy MD Unavailable Encounter Details Date Type Department Care Team (Late st Contact Info) Description 08/06/2020 12:41 PM EDT Hospital Encounter [facility] [address] [place] [address] Mikey Corado MD [address] [place] [address] Social History Tobacco Use Types Packs/Day Years [...] on filedocumented in this encounter Care Teams Assembler Type Bar And Segment Relationship Specialty Start Date End Date Barbara Lobo PAULA Prieto PCP - General 10/18/15 Tommy Handy MD [address] [address] 07/20/12 documented as of this encounter
--- OUTSIDE RECORDS SUMMARY | 2023-01-22 10:03 | XMS_ITS | Encounter Summary ---
Author Organization [facility] Address [address] [place] [address] Care Team Providers Care Computer Discovery Teacher Name Role Phone Barbara Lobo Conner MITCHELL Primary Care Provider [phone] Tommy Handy MD Unavailable Encounter Details Date Type Department Care Team (Late st Contact Info) Description 01/22/2023 10:03 AM EDT Hospital Encounter [facility] [address] [place] [phone] Leidy Mendoza PA-C [address] [place] [address] Social History Tobacco Use Types Packs/Day Years [...] on filedocumented in this encounter Care Teams Computer Discovery Teacher Relationship Specialty Start Date End Date LashellBarbara APRN PCP - General 10/18/15 Tommy Handy MD [address] [facility] [address] [place] [address] 07/20/12 documented as of this encounter
--- NOTE | 2025-02-23 15:08 | MHC.PC.OV ---
Vital Signs 02/23/25 15:55 BP 135/80 Pulse 101 H Pulse Source Monitor Intake Visit Reasons: Sinus infection Intake Note: Telehealth patient c/o sinus pressure, coughing, chest congestion, face swollen and head pressure, and sob x 1 week. [employer] Hand Finisher Required: No Allergies bee venom protein (honey bee) Allergy (Severe, Verified 02/23/25 15:54) Anaphylaxis tree nut Allergy (Severe, Verified 02/23/25 15:54) Anaphylaxis Medication List - Last Reconciled 02/23/25 by Yaritza Alexandra [facility] albuterol sulfate 90 mcg/actuation 2 puffs inhalation Q6H PRN epinephrine (EpiPen) 0.3 mg (0.3 mL) IM Q4H PRN estradiol 0.01%(0.1mg/gram) vaginal fluticasone furoate 50 mcg/actuation (Arnuity Ellipta) 1 inh inhalation DAILY PRN lansoprazole 30 mg PO DAILY magnesium 400 mg PO DAILY ondansetron 4 mg PO Q8H PRN propranolol 10 mg PO BID PRN riboflavin (vitamin B2) (Vitamin B-2) 400 mg PO DAILY sucralfate 1 g PO BEDTIME sumatriptan succinate take 1 tab at onset of headache; if no relief, may repeat 1 tab after at least 2 hrs; max = 2 tabs/24 hrs PO Synthroid (levothyroxine) 125 mcg PO DAILY NS triamcinolone acetonide 0.1% 1 appl topical BID Tobacco use date assessed: 02/23/25 Dental Screening Dental Screen Date: 02/23/25 Did you have a dental visit in the last 12 months?: Yes Did you have a dental problem in the last 6 months where you did not have access to dental care?: No Was dental information given to patient?: Patient has dentist HPI HPI Comments History of Present Illness Details 59 y/o F with asthma, migraines w/o aura, thyroid ca s/p thyroidectomy, former smoker, obesity , menopause, MARE, hypothyroidism, HLD, chronic low back pain, vit d def, hiatal hernia s/p c section, adenoidectomy, sinus surgery, hysterectomy, cervical disc replacement , total thyroidectomy Family hx: kidney ca, htn, heart dz, thyroid disorder, colon polyp Social: , now has boyfriend Health Maintenance Pap: 2020 Colon 2024 [facility] Mammo ordered and pending Flu declined Tdap declined [facility] Derm active for routine fu Optho wears glasses, last exam > 5 years ago. Advised to schedule updated exam. CROWN BLOCKER - Bailee aDvis [facility] Neuro Wt Mgmt History of Present Illness The patient is a 59-year-old female presenting with respiratory symptoms with a dry cough and sinus pain. Acute Respiratory Tract Infection: - Onset a week ago; started with upset stomach, cold, and fever. - Symptoms: sinus pain, facial puffiness, sore throat, dry cough, breathing difficulty. - Previous COVID-19 home tests: initial indeterminate, later negative result. - Self-treatment: ibuprofen, cold/sinus tablets, fluids, and vitamins. Essential Hypertension: - Blood pressure 135/80 mmHg may be influenced by illness. Review of Systems - Respiratory: Reports dry cough, breathing difficulty - HEENT: Reports sinus pain, facial puffiness, sore throat - General: Reports previous fever, denied recent fever - Cardiovascular: Denies chest pain - Gastrointestinal: Reports initial stomach upset resolving - Musculoskeletal: Denies joint pain - Neurological: Denies headache Physical Exam - Vitals- Heart rate 101 bpm, Blood pressure 135/80 mmHg Awake alert NAD Sinus congestion noted no wheezing or cough Skin PWD Results - Tests: Initial COVID-19 home test indeterminate, subsequent negative COVID-19 home test Assessment and Plan 1. Acute Respiratory Tract Infection - Azithromycin prescribed. - Cough suppressant provided. - Continue ibuprofen and OTCs as needed. - Monitor symptom progression. 2. Essential Hypertension - Monitor BP considering illness stress. Patient was given time to ask questions. All questions were answered to their satisfaction. Telehealth Attestation This visit was conducted via video consultation, and the documentation reflects the conversation accurately. The patient has been explained that this is an interactive (audio/video) telehealth encounter and what that consists of. The patient understands and wishes to proceed. [employer] platform was used. Total time spent caring for the patient today was 15 minutes. This includes time spent before the visit reviewing the chart, time spent during the visit, and time spent after the visit on documentation, reviewing laboratory results, diagnostic imaging, medications, performing a medically necessary evaluation, counseling on diagnoses, care coordination, ordering appropriate tests, ordering appropriate medications, review of tests performed by other providers, reporting test results with the patient, communication with other healthcare providers. [facility] Medical History (Updated 02/14/25 @ 15:19 by Yaritza Alexandra [facility]) Arthritis Asthma delivery delivered Joint pain Migraines Thyroid cancer Surgical History (Updated 02/14/25 @ 15:04 by Yaritza Alexandra [facility]) H/O adenoidectomy H/O sinus surgery History of bilateral carpal tunnel release History of colonoscopy (~10/2024) History of hysterectomy Hx of thyroidectomy Hx of tonsillectomy Hx of tubal ligation S/P cervical disc replacement Family History Other Cancer of kidney Colon polyps Heart disease Hypertension Thyroid disorder Social History Housing: House Patient Tobacco Use Status: Former Tobacco user e-Cigarette/Vaping Use: Never Used Second Hand Smoke Exposure: No service: No Current occupational status: employed 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 Transitional Cognitive needs: No Hearing needs: No Vision needs: Yes Questionnaire Thrive Questionnaire Date Thrive assessed: 07/29/24 I am a: Patient What is your living situation today?: I have a steady place to live Within the past 12 months, did the food you bought not last and you didn't have the money to get more?: Never true Within the past 12 months, did you worry whether your food would run out before you got money to buy more?: Never true Do you have trouble paying for medicines?: No Do you have trouble getting transportation to medical appointments?: No Do you have trouble paying your heating and electricity bill?: No Do you have trouble taking care of your child, family member or friend?: No Do you have trouble with day-to-day activities such as bathing, preparing meals, shopping, managing finances, etc.?: No Are you currently unemployed and looking for a job?: No Are you interested in more education?: I choose not to answer this question Please select the resources that you would like help with: None Currently or been in a relationship where the following occur: No concerns reported THRIVE Score: 0 MARE-7 AMB Questionnaire MARE-7 Date MARE - 7 assessed: 11/26/24 Source: Developed by Drs. Johnny Golden, Sherlyn B.W. Marc Luis and colleagues, with an educational dustin from [employer]. Physical exam (Primary Care) Vital Signs: Last Vital Signs Pulse 101 H 02/23/25 15:55 BP 135/80 02/23/25 15:55 Tobacco/Smoking Status: Tobacco use Status Tobacco use date assessed 02/23/25 02/23/25 15:10 Patient Tobacco Use Status Former Tobacco user 02/23/25 15:10 Tobacco use type 11/03/23 10:11 e-Cigarette/Vaping Use Never Used 02/23/25 15:10 Thrive Assessment: Date of Thrive Assessment Date Thrive assessed 07/29/24 02/23/25 15:10 Currently or been in a relationship where the following occur: No concerns reported Telehealth Telehealth Telehealth Platform: [employer] Location of provider rendering services: practice address Location of patient: address on file Patient Identification confirmed using: Name, : Yes Telehealth method: video Patient verbally consented to treatment: Yes Patient verbally consented to billing insurance company: Yes Patient informed of any privacy concerns related to visit: Yes Minutes spent on Phone/Video with Pt.: 8 Coding Level of Care Code Tele Est Pt Level 2 (12425) Complex EM visit Add On G2211 Diagnoses Acute nasopharyngitis J00 Assessment & Plan Assessment & Plan (1) Acute nasopharyngitis: Code(s): J00 - Acute nasopharyngitis [common cold] Plan . Medications: New azithromycin For 250 mg dose pack: take 500 mg today (day 1), then 250 mg for 4 days (days 2-5) PO 6 tabs 0RF 5 days benzonatate 100 mg PO TID PRN 30 caps 1RF cough 10 days
[2025-02-23 15:55] VITALS: BP 135/80; PULSE 101
--- OUTSIDE RECORDS SUMMARY | 2025-02-23 18:46 | XMS_ITS | Encounter Summary ---
Author Organization [facility] Address [address] [place] [address] Care Team Providers Care Multimedia Instructional Designer Name Role Phone Tommy Handy MD Primary Care Provider [phone] Tamela Dela Cruz APRN Primary Care Provider Riri ray Pcp, No Primary Care Provider UnavailBarbara Lopez APRN Primary Care Provider [phone] Tommy Handy MD Unavailable Encounter Details Date Type Department Care Team (Late st Contact Info) Description 08/23/2015 Scanned Document [address] [address] Provider, Generic Social History Tobacco [...] on filedocumented in this encounter Care Teams Multimedia Instructional Designer Relationship Specialty Start Date End Date Tommy Handy MD [address] [place] [address] 4 [place] [address] PCP - General 07/20/12 09/24/15 Tamela Dela Cruz APRN [address] [address] PCP - General Internal Medicine 09/25/15 10/02/15 Pcp, No PCP - General General Medicine 10/04/15 10/17/15 Barbara Lobo APRN PCP - General 10/18/15 Tommy Handy MD [address] [address] 07/20/12 documented as of this encounter
--- OUTSIDE RECORDS SUMMARY | 2025-02-23 18:46 | XMS_ITS | Encounter Summary ---
Author Organization [facility] Address [address] [place] [address] Care Team Providers Care Magnet Placer Name Role Phone DENY Avery Monika Primary Care Provider DENY Avery Monika Unavailable [phone] Reason for Visit * Reason Comments E-prescribing Refill Request Encounter Details Date Type Department Care Team (Late st Contact Info) Description 11/13/2024 [facility] [address] [place] [phone] Sydney Avery PA [address] [place], [place] [address] E-prescribing Refill Request Social History Tobacco Use [...] on filedocumented in this encounter Care Teams Magnet Placer Relationship Specialty Start Date End Date Sydney Avery PA [address] [place] [address] PCP - General 12/16/22 Sydney Avery PA [address] [place], [place] [id number] PCP - Backup PCP Family Medicine 06/11/23 documented as of this encounter
--- OUTSIDE RECORDS SUMMARY | 2025-02-23 18:46 | XMS_ITS | Clinical Summary ---
Author Organization [facility] Address [address] [place] [address] Care Team Providers Care Strategic Insights Lead Name Role Phone Lashell, Nuvia Prieto APRN Primary Care Provider [phone] Tommy Handy MD Unavailable Allergies No known [...] history exists Medical Devices Implanted Type Area Metal Framer Device Identifier Shelf Expiration Date Model / Serial / Lot 55 Mm Plate Medtronic # [id number] Implanted:Qty : 1 on 10/18/2015 by Se Floyd MD at [facility] Plate N/A: Spine Cervical [employer] MINIMALLY INVASIVE T [id number] / / Description:cervical Lordotic Sr Cortical Block [id number] Implanted:Qty : 1 on 10/18/2015 by Se Floyd MD at [facility] Spine N/A: Spine Cervical [employer] Autopilot (formerly Bislr) 07/25/2018 [id number] / [id number] / [id number] Lordotic Sr Cortical Block [id number] Implanted:Qty : 1 on 10/18/2015 by Se Floyd MD at [facility] Spine N/A: Spine Cervical [employer] Autopilot (formerly Bislr) 07/25/2018 [id number] / [id number] / [id number] Lordotic Sr Cortical Block [id number] Implanted:Qty : 1 on 10/18/2015 by Se Floyd MD at [facility] Spine N/A: Spine Cervical [employer] Autopilot (formerly Bislr) 06/21/2018 [id number] / [id number] / [id number] Graft Bone Grftn Dbm 1ml Putty Jar - [id number] Implanted:Qty : 1 on 10/18/2015 by Se Floyd MD at [facility] Tissue [employer] Autopilot (formerly [employer]isl[employer]) 03/29/2018 [id number] / [id number] / 3.5x15mm Vasd Screw Implanted:Qty : 1 on 10/18/2015 by Se Floyd MD at [facility] N/A: Spine Cervical [employer] MINIMALLY INVASIVE T [id number] / / Insurance [facility] Advance Directives * Full Code (Latest Code Status on File) Date Activated Date Inactivated Comments 10/18/2015 6:16 PM 10/20/2015 5:34 PM Care Teams Strategic Insights Lead Relationship Specialty Start Date End Date Lashell AnnaPALUA Prieto PCP - General 10/18/15 Tommy Handy MD [address] [place] [address] 07/20/12
--- OUTSIDE RECORDS SUMMARY | 2025-02-23 18:46 | XMS_ITS | Encounter Summary ---
Author Organization [facility] Address [address] [place] [address] Care Team Providers Care Spice Blender Name Role Phone Pcp, Latoya Primary Care Provider Barbara Lucero APRN Primary Care Provider [phone] Tommy Handy MD Unavailable Encounter Details Date Type Department Care Team (Late st Contact Info) Description 10/12/2015 Scanned Document [facility] [place] [address] [place] [address] Se Floyd MD 85 [facility] [address] [place] [address] Social History Tobacco Use Types Packs/Day Years [...] on filedocumented in this encounter Care Teams Spice Blender Relationship Specialty Start Date End Date Pcp, Latoya PCP - General General Medicine 10/04/15 10/17/15 Barbara Lobo APRN PCP - General 10/18/15 Tommy Handy MD [address] [place] [address] 07/20/12 documented as of this encounter
--- OUTSIDE RECORDS SUMMARY | 2025-02-23 18:46 | XMS_ITS | Encounter Summary ---
Author Organization [facility] Address [address] [place], [place] [address] Care Team Providers Care Information Security Specialist Name Role Phone Tamela Dela Cruz APRN Primary Care Provider Riri ray Pcp, No Primary Care Provider Barbara Lucero APRN Primary Care Provider [phone] Tommy Handy MD Unavailable Encounter Details Date Type Department Care Team (Late st Contact Info) Description 09/27/2015 Scanned Document [address] [address] Provider, Generic Social History Tobacco [...] on filedocumented in this encounter Care Teams Information Security Specialist Relationship Specialty Start Date End Date Tamela Dela Cruz APRN PCP - General Internal Medicine 09/25/15 10/02/15 Pcp, No PCP - General General Medicine 10/04/15 10/17/15 Barbara Lobo APRN PCP - General 10/18/15 Tommy Handy MD [address] [place] [address] 07/20/12 documented as of this encounter
--- OUTSIDE RECORDS SUMMARY | 2025-02-23 18:46 | XMS_ITS | Encounter Summary ---
Author Organization [facility] Address [address] [place] [address] Care Team Providers Care Med Specialist Name Role Phone DENY Avery Monika Primary Care Provider DENY Avery Monika Unavailable [phone] Encounter Details Date Type Department Care Team (Late st Contact Info) Description 06/21/2023 Orders Only [facility] [address] [place] [address] Sydney Avery PA [address] [place], [place] [address] Medications Social History Tobacco Use Types Packs/Day [...] 138/74(2023 12:37 PM EST) No Jennie Martinez, EMERGENCY ROOM PHYSICIAN Note: Above is your goal for blood [...] HARVEST Comment: CULTURE, URINE, ROUTINE Micro Number: [id number] Test Status: Final Specimen Source: Urine Specimen [...] EST [facility] Testing performed at: [facility], [facility], [address] [place] [address], [phone], Decommissioning Well Site Manager: Valerie Denton M.D. [facility] Collection Date/Time: [id number] [facility] Results Received Date/Time: [id number] [facility] Reported Date/Time: [id number] [facility] Final Result Performing Organization Address City/[facility]/ZIP Co de Phone Number ORCHARD HARVEST [address] [place] [address], * (ABNORMAL) LIPID PANEL WITH REFLEX TO [...] PM EST FASTING: YES Testing Performed at: [facility], [address] [place] [address], , Decommissioning Well Site Manager: Edith Graves MD CL#[id number] DENY [facility] Final Result Performing Organization Address [facility] Co de Phone Number ORCHARD HARVEST [address] [place] [address], * THYROID STIMULATING HORMONE (TSH) WITH FREE T4 REFLEX, SERUM (06/21/2023 11:29 AM EST) TSH (Thyrotropin) 3.34 0.50 - 4.80 uIU/ml ORCHARD HARVEST 06/21/2023 11:2 9 AM EST 06/21/2023 4:59 PM EST Narrative ORCHARD HARVEST - 06/21/2023 5:33 PM EST Testing Performed at: [facility], [address] [place] [address], , Decommissioning Well Site Manager: Edith Graves MD CL#[id number] DENY Balderas [facility] Final Result ORCHARD HARVEST [address] [place] [address]. [place] [address], * (ABNORMAL) COMPREHENSIVE METABOLIC PANEL WITH GFR [...] YES Testing Performed at: [facility], [address] [place] [address], , Decommissioning Well Site Manager: Edith Graves MD CL#[id number] us DENY [facility] Final Result [facility] [place] [address], documented in this encounter Visit Diagnoses Diagnosis Urgency of urination Abnormal results of liver function studies Nonspecific abnormal results of liver function study Hypothyroidism, unspecified Hyperlipidemia, unspecified documented in this encounter Care Teams Med Specialist Relationship Specialty Start Date End Date Sydney Avery PA [address] [place] [phone] PCP - General 12/16/22 Sydney Avery PA [address] [place] [address] PCP - Backup PCP Family Medicine 06/11/23 documented as of this encounter
--- OUTSIDE RECORDS SUMMARY | 2025-02-23 18:46 | XMS_ITS | Encounter Summary ---
Author Organization [facility] Address [address] [place] [address] Care Team Providers Care Commercial Fisher Name Role Phone Tommy Handy MD Primary Care Provider [phone] Tamela Dela Cruz APRN Primary Care Provider Riri ray Pcp, No Primary Care Provider UnavailBarbara Lopez APRN Primary Care Provider [phone] Tommy Handy MD Unavailable Encounter Details Date Type Department Care Team (Late st Contact Info) Description 05/29/2015 Scanned Document [address] [address] Provider, Generic Social History Tobacco [...] on filedocumented in this encounter Care Teams Commercial Fisher Relationship Specialty Start Date End Date Tommy Handy MD [address] [place] [address] PCP - General 07/20/12 09/24/15 Tamela Dela Cruz APRN [address] [place] [address] PCP - General Internal Medicine 09/25/15 10/02/15 Pcp, Latoya PCP - General General Medicine 10/04/15 10/17/15 Barbara Lobo APRN PCP - General 10/18/15 Tommy Handy MD [address] [place] [address] 07/20/12 documented as of this encounter
--- OUTSIDE RECORDS SUMMARY | 2025-02-23 18:46 | XMS_ITS | Clinical Summary ---
Author Organization [facility] Address [address] [place] [address] Care Team Providers Care Supervisor Wrapping Room Name Role Phone DENY Avrey Monika Primary Care Provider [phone] DENY Avery Monika Unavailable [phone] Allergies Active Allergy Reactions Criticality Noted Date [...] Back pain 12/10/2018 Bee sting allergy 08/20/2018 Yatahey allergy 08/20/2018 Hyperlipidemia 06/09/2018 Chronic sinusitis 06/05/2018 [...] PM EST FASTING: YES Testing Performed at: [facility], [address] [facility], [place] [address], , Agricultural Chemist: Edith Graves MD CL#[id number] DENY [facility]der[facility] Final Result ORCHARD HARVEST [address] [place] [address], [place] [phone] * XRAY CHEST, 2 VIEWS, PA & LATERAL FC (04/09/2021 11:15 AM EST) [facility] IMAGING STUDY Exam: X-ray chest 2 views No infiltrates or pleural effusions. No failure or fluid overload. Operative change lower cervical spine. Thoracic spine appears intact. Heart size is normal. IMPRESSION: No acute findings Electronically signed by Ty Nelson MD [facility] PHCT CONVERSIONS Anatomical Region Laterality Modality CHEST Radiographic Mary ging 04/09/2021 11:1 5 AM EST Chidi Davis MD IMG XRAY NO CONTRAST ORDERABLE S Final Result * HEPATITIS PANEL, ACUTE W/REFLEX (06/05/2018 7:48 AM EST) [facility] HEPATITIS A IGM NON-REACT SHANIA NON-REACT SHANIA [...] 06/05/2018 7:39 PM EST Testing Performed at: [facility], [address] [place] [address], [place] [address], , Agricultural Chemist: Mariann Talley MD CL#[id number] us DENY Bal[facility] Final Result PHCT CONVERSIONS * MAMMOGRAM SCREENING , BILATERAL FC (09/03/2017 9:28 AM EDT) BI-RADS CODE BI-RADS Category 2: Continue Routine Screening PHCT CONVERSIONS Anatomical Region Laterality Modality BREAST Bilateral Mammography 09/03/2017 9:28 AM EDT us Php Unknown Prov IMG MAMMO ORDERABLES Final Resu lt from Last 3 Months or Most Recently Relevant to Health Maintenance Care Teams Supervisor Wrapping Room Relationship Specialty Start Date End Date Sydney Avery PA [address] [place] [address] PCP - General 12/16/22 Sydney Avery PA [address] [place] [address] PCP - Backup PCP Family Medicine 06/11/23
--- OUTSIDE RECORDS SUMMARY | 2025-02-23 18:46 | XMS_ITS | Encounter Summary ---
Author Organization [facility] Address [address] [place] [address] Care Team Providers Care Cane Flume Watchman Name Role Phone DENY Avery Monika Primary Care Provider [phone] DENY Avery Monika Unavailable [phone] Reason for Visit * Reason Comments E-prescribing Refill Request Encounter Details Date Type Department Care Team (Late st Contact Info) Description 05/15/2024 [facility] [address] [place] [phone] Sydney Avery PA [address] [place], [place] [address] E-prescribing Refill Request Social History Tobacco Use [...] hypercholesterolemia documented in this encounter Care Teams Cane Flume Watchman Relationship Specialty Start Date End Date Sydney Avery PA [address] [place] [address] PCP - General 12/16/22 Sydney Avery PA [address] [place] [address] PCP - Backup PCP Family Medicine 06/11/23 documented as of this encounter
--- OUTSIDE RECORDS SUMMARY | 2025-02-23 18:46 | XMS_ITS | Encounter Summary ---
Author Organization [facility] Address [address] [place] [address] Care Team Providers Care Residential Tech Name Role Phone Tamela Dela Cruz APRN Primary Care Provider Riri ray Pcp, No Primary Care Provider Barbara Lucero APRN Primary Care Provider [phone] Tommy Handy MD Unavailable Encounter Details Date Type Department Care Team (Late st Contact Info) Description 10/02/2015 Prep for Surgery [facility] [place] [address] [place] [address] Se Floyd MD [address] [address] Social History Tobacco Use Types Packs/Day Years [...] on filedocumented in this encounter Care Teams Residential Tech Relationship Specialty Start Date End Date Tamela Dela Cruz APRN PCP - General Internal Medicine 09/25/15 10/02/15 Pcp, No PCP - General General Medicine 10/04/15 10/17/15 Barbara Lobo APRN PCP - General 10/18/15 Tommy Handy MD [address] [address] 07/20/12 documented as of this encounter
== END 2025-02-23 16:01 | disposition home or self-care (01) ==
LOC: HO.HMCFM 15:12
PROVIDERS: PCP Nurse Practitioner Family; Visit Provider Nurse Practitioner Family
DX: J00 Acute nasopharyngitis [common cold] (principal)

== ENCOUNTER 2025-04-13 13:54 | Outpatient (AMB) | payer BC, SELFPAY ==
--- OUTSIDE RECORDS SUMMARY | 2020-08-06 11:41 | XMS_ITS | Encounter Summary ---
Author Organization [facility] Address [address] [place] [address] Care Team Providers Care Supervisor Mold Construction Name Role Phone Barbara Lobo Conner MITCHELL Primary Care Provider Tommy Handy MD Unavailable Encounter Details Date Type Department Care Team (Late st Contact Info) Description 08/06/2020 12:41 PM EDT Hospital Encounter [facility] [address] [place] [address] Mikey Corado MD [address] [place] [address] Social History Tobacco Use Types Packs/Day Years Used Date Smoking Tobacco: Former Cigarettes 0.3 10 Smokeless Tobacco: Never Alcohol Use Standard Drinks/Week Comments Yes 3 (1 standard drink = 0.6 oz pur e alcohol) Comments No Sex and Gender Information Value Date Recorded Sex Assigned at Female 01/22/2023 1:48 PM EDT Legal Sex Female 11:12 PM EDT Gender Identity Not on file Sexual Orientation Heterosexual (straight) 01/22 1:48 PM EDT COVID-19 Exposure Response Date Recorded In the last month, have you been in contact with someone who was confirmed or suspected to have Coronavirus / COVID-19? No / Unsure 08/06/2020 11:54 AM EDT documented as of this encounter Plan of Treatment Not on file documented as of this encounter Procedures Procedure Name Priority Date/Time Associated Diagnosis Comments XR KNEE 4+ VIEWS-RIGHT STAT 08/06/2020 12:53 PM EDT Knee injury, initial encounter documented in this encounter Results * XR Knee 4+ views-Right (08/06/2020 12:53 PM EDT) Anatomical Region Laterality Modality Knee Right Computed Radiogr aphy 08/06/2020 12:5 4 PM EDT Impressions 08/06/2020 12:54 PM EDT 1.No acute fracture or dislocation of the right knee. Narrative 08/06/2020 12:54 PM EDT XR KNEE 4+ VIEWS-RIGHT 08/06/2020 12:54 PM HISTORY: knee pain, please include sunrise COMPARISON(S): None. TECHNIQUE: AP, lateral, and bilateral oblique radiographs of the right knee were obtained. FINDINGS: There is normal mineralization without an acute fracture. The alignment is anatomic without subluxation or dislocation. The medial and lateral tibiofemoral compartments are intact without joint space narrowing, marginal osteophytosis, or meniscal calcifications. The patellofemoral joint space is intact. No appreciable soft tissue swelling, subcutaneous emphysema or radio-opaque foreign object is seen. There is no knee joint effusion. Procedure Note Toy Mcfarlane MD - 08/06/2020 XR KNEE 4+ VIEWS-RIGHT 08/06/2020 12:54 PM HISTORY: knee pain, please include sunrise COMPARISON(S): None. TECHNIQUE: AP, lateral, and bilateral oblique radiographs of the rightknee were obtained. FINDINGS: There is normal mineralization without an acute fracture. The alignment isanatomic without subluxation or dislocation. The medial and lateraltibiofemoral compartments are intact without joint space narrowing,marginal osteophytosis, or meniscal calcifications. The patellofemoral joint space is intact. No appreciablesoft tissue swelling, subcutaneous emphysema or radio-opaque foreignobject is seen. There is no knee joint effusion. IMPRESSION: 1.No acute fracture or dislocation of the right knee. us Lynnette BARCLAY [facility]NO[facility] IMAG[facility] ORDERABLE S Final Result documented in this encounter Visit Diagnoses Not on filedocumented in this encounter Care Teams Supervisor [employer] Relationship Specialty Start Date End Date Barbara Lobo PAULA Prieto PCP - General 10/18/15 Tommy Handy MD [address] [address] 07/20/12 documented as of this encounter
--- OUTSIDE RECORDS SUMMARY | 2023-01-22 09:03 | XMS_ITS | Encounter Summary ---
Author Organization [facility] Address [address] [place] [address] Care Team Providers Care Refrigeration Tech Name Role Phone LashellBarbara parker Conner MITCHELL Primary Care Provider [phone] Tommy Handy MD Unavailable Encounter Details Date Type Department Care Team (Late st Contact Info) Description 01/22/2023 10:03 AM EDT Hospital Encounter [facility] [address] [place] [phone] Leidy Mendoza PA-C [address] [place] [address] Social History Tobacco Use Types Packs/Day Years [...] Orientation Heterosexual (straight) 01/22 1:48 PM EDT documented as of this encounter Plan of Treatment Not on file documented as of this encounter Procedures Procedure Name Priority Date/Time Associated Diagnosis Comments XR FOOT 3+ VIEWS-LEFT Routine 01/22/2023 10:16 AM EDT Foot pain, left documented in this encounter Results * XR Foot 3+ views-Left (01/22/2023 10:16 AM EDT) Anatomical Region Laterality Modality Foot Left Computed Radiogr aphy 01/22/2023 10:2 4 AM EDT Impressions 01/22/2023 10:25 AM EDT No acute osseous abnormality detected. Narrative 01/22/2023 10:25 AM EDT XR FOOT 3+ VIEWS-LEFT: 01/22/2023 10:03 AM CLINICAL HISTORY: pain to 5th MTP joint x 1 month. NKI. Swollen, red.. Foot pain, left. FINDINGS: The osseous structures are intact. There is no evidence of fracture or dislocation. Mild degenerative changes first MTP joint. Bony alignment is unremarkable. Procedure Note Se Chavez MD - 01/22/2023 XR FOOT 3+ VIEWS-LEFT: 01/22/2023 10:03 AM CLINICAL HISTORY: pain to 5th MTP joint x 1 month. NKI. Swollen, red.. Foot pain, left. FINDINGS: The osseous structures are intact. There is no evidence of fracture ordislocation. Mild degenerative changes first MTP joint. Bony alignment is unremarkable. IMPRESSION: No acute osseous abnormality detected. us Leidy Mendoza PA-C [facility] Final Result documented in this encounter Visit Diagnoses Not on filedocumented in this encounter Care Teams Refrigeration Tech Relationship Specialty Start Date End Date LashellBarbara APRN PCP - General 10/18/15 Tommy Handy MD [address] [facility] [address] [place] [address] 07/20/12 documented as of this encounter
--- OUTSIDE RECORDS SUMMARY | 2025-04-07 23:59 | XMS_ITS | Continuity of Care Document ---
Author Organization [facility] [place] [facility] Address [address] [address] Care Team Providers Care Computer Aided Drafter Name Role Phone Taiwo HARDIN, Yaritza Ramires Primary Care Physician Encounter [facility] R [id number] Date(s): 03/08/25 - 04/07/25 [facility] [address] [address]- Attending Physician: Robert Coffman Admitting Physician: Robert Coffman Referring Physician: Robert Coffman Encounter Type: Triage Allergies, Adverse Reactions, Alerts No Known Medication Allergies Medications Albuterol (Eqv-ProAir HFA) 90 mcg/inh inhalation aerosol 0 Refills, Maintenance, 08/13/24 12:29:00 PM EDT, Partial fill upon patient request if the prescription is for a schedule II opioid drug. Start Date: 08/13/24 Status: Ordered Medication Dispense Status: Completed Total Allowed Fills: 1 Fills Dispensed: 0 Azithromycin 5 Day Dose Pack 250 mg oral tablet 1 pack/packet, By Mouth, Once, # 6 tablet, 0 Refills, Soft Stop, 08/13/24 12:58:00 PM EDT, Tablet, [id number], Partial fill upon patient request if the prescription is for a schedule IIopioid drug. Start Date: 08/13/24 Status: Ordered Medication Dispense Status: Completed Quantity: 6.0 Unit: tablet Total Allowed Fills: 1 Fills Dispensed: 0 Indications: Acute sinusitis, unspecified; Unspecified asthma with (acute) exacerbation; benzonatate 200 mg oral capsule 1 capsule = 200 mg, By Mouth, 3 times a day, PRN Cough, # 20 capsule, 0 Refills, Maintenance, 08/13/24 12:58:00 PM EDT, Capsule, [id number], Partial fill upon patient request if the prescription is for a schedule II opioid drug. Start Date: 08/13/24 Status: Ordered Medication Dispense Status: Completed Quantity: 20.0 Unit: capsule Total Allowed Fills: 1 Fills Dispensed: 0 Indications: Acute sinusitis, unspecified; Unspecified asthma with (acute) exacerbation; Estrace Vaginal Cream 0.1 mg/g = 1 Gm, Vaginally, Every Friday, Friday and Friday, use 3x per week vagianlly, # 42.5 Gm, 11 Refills, Maintenance, 01/04/25 9:47:00 AM EDT, [id number], Partial fill upon patient request if the prescription is for a schedule II opioid drug., 155, cm, 01/04/25 8:50:00 EDT, Height, 74.5, kg, 01/04/25 8:50:00 EDT, Dry Weight Start Date: 01/04/25 Status: Ordered Medication Dispense Status: Completed Quantity: 42.5 Unit: g Total Allowed Fills: 12 Fills Dispensed: 0 Mucinex DM Max Strength oral tablet, extended release 1 tablet, By Mouth, 2 times a day, PRN Cough and Congestion, # 14 tablet, 0 Refills, Maintenance, 08/13/24 12:59:00 PM EDT, ER Tablet, [id number], Partial fill upon patient request if the prescription is for a schedule II opioid drug., 1 tablet By Mouth 2 times a day,PRN:Cough and Congestion Start Date: 08/13/24 Status: Ordered Medication Dispense Status: Completed Quantity: 14.0 Unit: tablet Total Allowed Fills: 1 Fills Dispensed: 0 Indications: Acute sinusitis, unspecified; Unspecified asthma with (acute) exacerbation; ondansetron 4 mg oral tablet, disintegrating 1 tablet = 4 mg, By Mouth, Every 8 hours, PRN as needed for nausea/vomiting, # 14 tablet, 0 Refills, Maintenance, 08/13/24 12:59:00 PM EDT, DIS Tablet, [facility], Partial fill upon patient request if the prescription is for a schedule II opioid drug. Start Date: 08/13/24 Status: Ordered Medication Dispense Status: Completed Quantity: 14.0 Unit: tablet Total Allowed Fills: 1 Fills Dispensed: 0 Indications: Acute sinusitis, unspecified; Unspecified asthma with (acute) exacerbation; propranolol 10 mg oral tablet Refills 0, Maintenance, 08/13/24 12:29:00 PM EDT, Partial fill upon patient request if the prescription is for a schedule II opioid drug. Start Date: 08/13/24 Status: Ordered Medication Dispense Status: Completed Total Allowed Fills: 1 Fills Dispensed: 0 Synthroid 0.125 mg oral tablet 0 Refills, Maintenance, 08/13/24 12:29:00 PM EDT, Partial fill upon patient request if the prescription is for a schedule II opioid drug. Start Date: 08/13/24 Status: Ordered Medication Dispense Status: Completed Total Allowed Fills: 1 Fills Dispensed: 0 Problem List Condition Confirmation Course Effective Dates Status Health St atus Informant Obese class I Confirmed Active Social History Social History Type Response Sex Sex Representation Female (finding) Patient Care team information Care Team Personnel Name: Yaritza Maravilla NP Position: [facility] Outreach Member Role: PCP Address: [address] [place] [address] Telecom: Care Team Related Persons Name: PT STATES, NO ONE Insurance Providers Guarantor name: CRISTINA Health Plan Information #: 1 Payer: [facility] Payer Identifier: CRISTINA Member Number: [id number] Group Number: [id number] Subscriber Identifier: CRISTINA Relationship to Subscriber: self Coverage Type: NA Coverage Verification Date: CRISTINA Telecom: CRISTINA Address:
--- OUTSIDE RECORDS SUMMARY | 2025-04-07 23:59 | XMS_ITS | Continuity of Care Document ---
Author Organization [facility] Address [address] [address]- Care Team Providers Care Paraffin Plant Sweater Operator Name Role Phone Taiwo HARDIN, Yaritza Ramires Primary Care Physician Encounter [facility] [id number] Date(s): 01/04/25 - 04/07/25 [facility] [address] [place] [address] Attending Physician: Not on Staff, Attending MD Admitting Physician: Bailee Davis CNM Referring Physician: Gill Marino CNM Encounter Type: Pre-OutPatient One Time Allergies, Adverse Reactions, Alerts No Known Medication [...] Soft Stop, 08/13/24 12:58:00 PM EDT, Tablet, [id number], Partial fill upon patient request if the [...] 08/13/24 12:58:00 PM EDT, Capsule, [id number], Partial fill upon patient request if the [...] Maintenance, 01/04/25 9:47:00 AM EDT, [facility][id number], Partial fill upon patient request if the [...] 12:59:00 PM EDT, ER Tablet, [facility]72309, Partial fill upon patient request if the [...] 12:59:00 PM EDT, DIS Tablet, [facility]73368, Partial fill upon patient request if the [...] Team Personnel Name: Yaritza Maravilla NP Position: [facility] Outreach Member Role: PCP Address: [address] [place] [address] Telecom: Care Team Related Persons Name: PT STATES, NO ONE Insurance Providers Guarantor name: CRISTINA Health Plan Information #: 1 Payer: [facility] H[facility] Payer Identifier: CRISTINA Member Number: [id number] Group Number: [id number] Subscriber Identifier: [id number] Relationship to Subscriber: self Coverage Type: NA Coverage Verification Date: NA Telecom: Address:
[2025-04-13 13:56] VITALS: BP 128/58; PULSE 82; O2SAT 95; BMI 31.4
--- NOTE | 2025-04-13 13:56 | MHC.OFFVIS ---
Vital Signs 04/13/25 13:56 Height 5 ft 1 in Weight 166 lb BMI 31.4 BP 128/58 L Blood Pressure Location Rt brachial Position Sitting Pulse 82 Pulse Source Pulse Oximeter Pulse Oximetry (%) 95 Oxygen Delivery Method Room Air Intake Visit Reasons: S/P Double; Dr. Valderrama Intake Note: Est pt for s/p FUV + mgmt of intermittent constipation, diarrhea, and GERD. CC; C/O GERD persistence despite the currently rx'd therapy. Pt states that she stopped taking her sucralfate because it was not alleviating any of her sx. Scarf Gluer Required: No Accompanied by: Self / Same As Patient Allergies bee venom protein (honey bee) Allergy (Severe, Verified 04/13/25 13:56) Anaphylaxis tree nut Allergy (Severe, Verified 04/13/25 13:56) Anaphylaxis HPI HPI S/P Double; Dr. Valderrama: Details: LAST VISIT Abdominal bloating Alternating constipation and diarrhea Colon cancer screening Postprandial abdominal bloating GERD (gastroesophageal reflux disease) Postprandial epigastric pain Plan Will check transglutaminase, vitamin B12, folate, vitamin-D level as well as lipase and H pylori testing. Will treat empirically if positive. Patient will be sent for upper GI with barium swallow. We will discuss going for colonoscopy and endoscopy today as well. Patient denies any issues with anesthesia in the past. Family history of CRC. Patient was encouraged to try to take fiber every day. May take Dulcolax to help her empty her bowels better. Patient will start taking pantoprazole daily. Avoid dietary triggers and late night snacking. Staying upright for minimum 3 hours after meals discussed with patient. What to expect before during and after the procedure discussed with patient. Stressed the importance of good bowel prep and clear liquid diet day before procedure. Patient will be seen after the procedure, sooner on as needed basis. She is agreeable to this plan and verbalizes understanding of instructions. She was given the opportunity to ask questions and all questions answered. ? Thank you for allowing me to participate in her care Orders Transglutaminase IgA 09/29/24 R10.9 FL upper GI w Ba Swallow 09/29/24 K21.9 Transglutaminase Ab IgG 09/29/24 R10.9 Vitamin B12 and Folate 09/29/24 R19.7 Vitamin D 25-OH (D2 and D3) 09/29/24 E55.9 Lipase 09/29/24 R10.9 H Pylori Breath Test 09/29/24 K21.9 New bisacodyl (Dulcolax (bisacodyl)) 10 mg (2 x 5 mg) PO BEDTIME 180 tabs 4RF polyethylene glycol 3350 (Miralax) As directed by gastroenterology department at [facility] 238 grams PO ONCE 238 grams 0RF Z12.11 pantoprazole take one tablet half an hour before breakfast 40 mg PO DAILY 30 tabs 2RF K21.9 UPPER ENDOSCOPY AND COLONOSCOPY Findings: Larynx:normal Esophagus: GE junction at 37 cm, diaphragm hiatus at 37 cm, few streaky erosions in distal esophagus noted with mild esophagitis, bx taken from GEJ, diatal and proximal esophagus. Balloon dilation to 20 mm at LES and UES Stomach: Patchy erythema. Biopsies were obtained. Grade 2 flap valve on retroflexed examination of the cardia. Duodenum: Normal bulb and descending duodenum, bx taken Intervention: Biopsies as noted above, balloon dilation COLONOSCOPY Instrument: Olympus variable stiffness pediatric scope 190L Colonoscopy Monitoring: Vital signs and clinical assessment, continuous EKG monitoring, Pulse oximetry, Carbon Dioxide monitoring and blood pressure monitoring were done throughout the procedure. Colon withdrawal time was 9 minutes. Procedure: The patient was placed in the left lateral decubitis position and pre-procedure medications were administered. After a digital rectal examination of the ano-rectum, the video colonoscope was inserted into the rectum and advanced through the colon to the cecum/TI. The colonoscope was slowly withdrawn in a retrograde panoramic fashion and the colon mucosa was carefully examined including a retroflexed view of the rectum. Findings and interventions are described below. Procedure Difficulty: easy Findings: Terminal Ileum-normal Cecum:normal Ascending Colon: 6-7 mm sessile polyp removed with cold snare Transverse Colon -normal Descending Colon:normal Sigmoid Colon: normal Rectum: Retroflexion with small internal hemorrhoids, grade I Anorectum - normal Colon preparation: Bellwood Bowel Preparation Scale Right colon; 2 Transverse colon: 2 Left colon; 2 (0 = Unprepared colon segment with mucosa not seen due to solid stool that cannot be cleared. 1 = Portion of mucosa of the colon segment seen, but other areas of the colon segment not well seen due to staining, residual stool and/or opaque liquid. 2 = Minor amount of residual staining, small fragments of stool and/or opaque liquid, but mucosa of colon segment seen well. 3 = Entire mucosa of colon segment seen well with no residual staining, small fragments of stool or opaque liquid) Impression and Post Procedure Diagnosis: Endoscopy Findings: erosive esophagitis gastritis Colonoscopy Findings: colon polyp internal hemorrhoids Plan: Await Pathology results Repeat Colonoscopy in 5 years or earlier if clinically indicated High fiber diet leaflet avoid straining at stool, epsom salts and sitz bath, anusol supps or cream GERD precautions, check compliance with PPI PATHOLOGY RESULTS Diagnosis A. Duodenum, biopsy: Duodenal mucosa within normal limits; preserved villous architecture and no increased intraepithelial lymphocytes seen. B. Stomach, biopsy: Gastric antral and body mucosa within normal limits; negative for Helicobacter pylori, intestinal metaplasia and dysplasia. C. Gastroesophageal junction, biopsy: Gastric cardia type mucosa with moderate chronic active inflammation; no squamous mucosa seen; negative for intestinal metaplasia and dysplasia. D. Esophagus, distal, biopsy: Squamous mucosa within normal limits; negative for inflammation (including intraepithelial eosinophils), fungal organisms, intestinal metaplasia and dysplasia. E. Esophagus, proximal, biopsy: Squamous mucosa within normal limits; negative for inflammation (including intraepithelial eosinophils), fungal organisms, intestinal metaplasia and dysplasia. F. Colon, ascending, polypectomy: No tissue received TODAY'S VISIT: Patient is here today for follow-up and to discuss upper endoscopy and colonoscopy results. Patient denies any ill effects from the prep, anesthesia or procedure itself. Patient reports that she continues to have epigastric pain most of the time at night time. Patient reports lower abdominal pain. Reports that she takes senna as needed. Patient denies any nausea or vomiting. Patient reports that she stopped taking sucralfate is it was not helping her controlling her symptoms at night time. Patient reports occasional blood in her stools and sometimes black stool. Lab results discussed with patient. We have ruled out celiac, malabsorption. Patient had negative H pylori breath test. Upper endoscopy and colonoscopy results discussed with patient. We have discussed also upper GI series with barium swallow. Disorganized peristalsis and occasional reflux seen. Small type 1 hiatal hernia seen as well [facility] Medical History Thyroid cancer delivery delivered Asthma Arthritis Joint pain Migraines Surgical History History of bilateral carpal tunnel release Hx of tonsillectomy Hx of tubal ligation Hx of thyroidectomy History of colonoscopy (~10/2024) History of hysterectomy S/P cervical disc replacement H/O adenoidectomy H/O sinus surgery Family History Other Cancer of kidney Colon polyps Heart disease Hypertension Thyroid disorder Social History Housing: House Alcohol intake: current Alcohol intake frequency: holidays/special occasions only Patient Tobacco Use Status: Former Tobacco user e-Cigarette/Vaping Use: Never Used Second Hand Smoke Exposure: No service: No Current occupational status: employed 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 Cognitive needs: No Hearing needs: No Vision needs: Yes Review of Systems Const Denies weight gain and Denies weight loss ENT Reports no additional complaints, Denies dysphagia and Denies odynophagia Card Reports no additional complaints Resp Reports no additional complaints GI Reports abdominal pain (epigastric pain night time and lower abdominal pain), Denies belching, Denies melena, Reports bloating, Reports hematochezia (And occasional melena), Denies change in bowel habits, Reports tenesmus (ocassiona), Reports constipation, Denies dysphagia, Reports excessive flatus, Reports dyspepsia, Reports heartburn, Denies diarrhea, Reports loose stools, Reports nausea, Denies odynophagia and Denies vomiting Reports no additional complaints Musc Reports no additional complaints Neuro Reports no additional complaints Psych Reports no additional complaints Endo Reports no additional complaints Physical Exam Vital Signs: Last Vital Signs Pulse 82 04/13/25 13:56 BP 128/58 L 04/13/25 13:56 Pulse Ox 95 04/13/25 13:56 Oxygen Delivery Method Room Air 04/13/25 13:56 BMI result Body Mass Index 31.4 Const General: healthy appearing, no acute distress and well developed Nutritional Appearance: well nourished and obese Orientation/consciousness: patient oriented x3 Resp Effort & Inspection: normal respiratory effort, able to speak in complete sentences, no tracheal deviation and symmetric chest movement Auscultation: clear to auscultation bilaterally Cardio Rate: regular rate GI Inspection: Yes normal to inspection, No distended and Yes obesity Palpation (GI): Soft to palpation, not firm, nontender and No hepatosplenomegaly present Auscultation: normal bowel sounds General: Yes no CVA tenderness Back/Spine/Pelvis Back: no CVA tenderness Skin General skin exam: elasticity normal, turgor normal and dry skin Neuro General: patient oriented x3 Psych Appearance: grossly normal Mental Status: mental status grossly normal Results Reviewed Results Reviewed: UPPER GI WITH BARIUM SWALLOW IMPRESSION: 1. Mild to moderately disordered esophageal peristalsis. 2. Tiny type I hiatus hernia. 3. Episodic gastroesophageal reflux to the level of the aortic arch. 4. Normal-appearing stomach and duodenum. Laboratory Tests 09/29/24 09/29/24 11/25/24 15:00 15:28 07:53 Total Bilirubin AST ALT Alkaline Phosphatase Albumin Triglycerides 219 H Cholesterol 288 H LDL Cholesterol, Calc 190 H Lipase 40 Vitamin B12 449 25-OH Vitamin D Total 32 25-Hydroxy Vitamin D3 28 Folate 9.4 TSH 1.57 Tiss Transglutamin IgG <1.0 Tiss Transglutamin IgA <1.0 H. pylori Breath Test Negative 02/14/25 15:30 Total Bilirubin 0.3 AST 25 ALT 33 H Alkaline Phosphatase 77 Albumin 4.7 Triglycerides 257 H Cholesterol 281 H LDL Cholesterol, Calc 177 H Lipase Vitamin B12 25-OH Vitamin D Total 25-Hydroxy Vitamin D3 Folate TSH Tiss Transglutamin IgG Tiss Transglutamin IgA H. pylori Breath Test Assessment & Plan Assessment & Plan (1) Alternating constipation and diarrhea: Code(s): R19.8 - Other specified symptoms and signs involving the digestive system and abdomen Category: Medical (2) Abdominal bloating: Code(s): R14.0 - Abdominal distension (gaseous) Category: Medical (3) Postprandial abdominal bloating: Code(s): R14.0 - Abdominal distension (gaseous) (4) Gastroesophageal reflux disease: Code(s): K21.9 - Gastro-esophageal reflux disease without esophagitis Qualifiers: Esophagitis presence: esophagitis presence not specified Qualified Code(s): K21.9 - Gastro-esophageal reflux disease without esophagitis (5) Postprandial epigastric pain: Code(s): R10.13 - Epigastric pain Plan Patient will take pantoprazole in the morning and famotidine at bedtime. Avoid dietary triggers and late night snacking. Staying upright for minimum 3 hours after meals discussed with patient. Patient was encouraged to take fiber supplement daily. Increase fluid intake and activity to promote bowel motility. Patient will follow-up in the office in 3-4 months. She was encouraged to call us if she will have any GI concerning symptoms. Patient is agreeable to this plan and verbalizes understanding of instructions. She was given the opportunity to ask questions and all questions answered. Thank you for allowing me to participate in her care Medications: New famotidine 40 mg PO BEDTIME 30 tabs 3RF K21.9 - Gastro-esophageal reflux disease without esophagitis pantoprazole take one tablet half an hour before breakfast 40 mg PO DAILY 30 tabs 3RF K21.9 - Gastro-esophageal reflux disease without esophagitis Coding Level of Care Code Est Pt Level 4 (56560) Add On Problem Visit Only Diagnoses Alternating constipation and diarrhea R19.8 Abdominal bloating R14.0 Postprandial abdominal bloating R14.0 Gastroesophageal reflux disease, unspecified whether esophagitis present K21.9 Esophagitis presence: esophagitis presence not specified Postprandial epigastric pain R10.13 Time Spent (min) 40 Comment 25 minutes spent with patient and additional 10 minutes spent reviewing her records
--- OUTSIDE RECORDS SUMMARY | 2025-04-13 16:41 | XMS_ITS | Encounter Summary ---
Author Organization [facility] Address [address] [place] [address] Care Team Providers Care Correctional Therapy Director Name Role Phone Tamela Dela Cruz APRN Primary Care Provider Riri ray Pcp, No Primary Care Provider Barbara Lucero APRN Primary Care Provider [phone] Tommy Handy MD Unavailable Encounter Details Date Type Department Care Team (Late st Contact Info) Description 10/02/2015 Prep for Surgery [facility] [address] [place] [address] Se Floyd MD [address] [address] Social History Tobacco Use Types Packs/Day Years [...] on filedocumented in this encounter Care Teams Correctional Therapy Director Relationship Specialty Start Date End Date Tmaela Dela Cruz APRN PCP - General Internal Medicine 09/25/15 10/02/15 Pcp, No PCP - General General Medicine 10/04/15 10/17/15 Barbara Lobo APRN PCP - General 10/18/15 Tommy Handy MD [address] [address] 07/20/12 documented as of this encounter
--- OUTSIDE RECORDS SUMMARY | 2025-04-13 16:41 | XMS_ITS | Encounter Summary ---
Author Organization [facility] Address [address] [place] [address] Care Team Providers Care Mail Service Coordinator Name Role Phone Tommy Handy MD Primary Care Provider [phone] Tamela Dela Cruz APRN Primary Care Provider Riri ray Pcp, No Primary Care Provider UnavailBarbara Lopez APRN Primary Care Provider [phone] Tommy Handy MD Unavailable Encounter Details Date Type Department Care Team (Late st Contact Info) Description 05/29/2015 Scanned Document [address] [address] Provider, Generic Social History Tobacco [...] on filedocumented in this encounter Care Teams Mail Service Coordinator Relationship Specialty Start Date End Date Tommy Handy MD [address] [place] [address] PCP - General 07/20/12 09/24/15 Tamela Dela Cruz APRN [address] [place] [address] PCP - General Internal Medicine 09/25/15 10/02/15 Pcp, Latoya PCP - General General Medicine 10/04/15 10/17/15 Barbara Lobo APRN PCP - General 10/18/15 Tommy Handy MD [address] [place] [address] 07/20/12 documented as of this encounter
--- OUTSIDE RECORDS SUMMARY | 2025-04-13 16:41 | XMS_ITS | Encounter Summary ---
Author Organization [facility] Address [address] [place] [address] Care Team Providers Care Rubbish Collection Supervisor Name Role Phone DENY Avery Monika Primary Care Provider [phone] DENY Avery Monika Unavailable [phone] Encounter Details Date Type Department Care Team (Late st Contact Info) Description 06/21/2023 Orders Only [facility] [address] [place] [address] Sydney Aevry PA [address] [place], [place] [address] Medications Social History Tobacco Use Types Packs/Day [...] 138/74(2023 12:37 PM EST) No Jennie Martinez, PSYCHOTHERAPIST Note: Above is your goal for blood [...] HARVEST Comment: CULTURE, URINE, ROUTINE Micro Number: [id number] Test Status: Final Specimen Source: Urine Specimen [...] 5:00 AM EST [facility] Testing performed at: [facility], [facility], [address] [place] [address], [id number], Lay Out Carpenter: Valerie Denton M.D. [facility] Collection Date/Time: [id number] [facility] Results Received Date/Time: [id number] [facility] Reported Date/Time: [id number] [facility]Y [facility] Final Result Performing Organization Address City/[facility]/ZIP Co de Phone Number ORCHARD HARVEST [address] [place] [address], * (ABNORMAL) LIPID PANEL WITH REFLEX TO [...] PM EST FASTING: YES Testing Performed at: [facility], [address] [place] [address], , Lay Out Carpenter: Edith Graves MD CL#[id number] DENY [facility] Final Result Performing Organization Address [facility] Co de Phone Number ORCHARD HARVEST [address] [place] [address], * THYROID STIMULATING HORMONE (TSH) WITH FREE T4 REFLEX, SERUM (06/21/2023 11:29 AM EST) TSH (Thyrotropin) 3.34 0.50 - 4.80 uIU/ml ORCHARD HARVEST 06/21/2023 11:2 9 AM EST 06/21/2023 4:59 PM EST Narrative ORCHARD HARVEST - 06/21/2023 5:33 PM EST Testing Performed at: [facility], [address] [place] [address], , Lay Out Carpenter: Edith Graves MD CL#[id number] DENY [facility]der[facility] Final Result ORCHARD HARVEST [address] [place] [address]. [place] [address], * (ABNORMAL) COMPREHENSIVE METABOLIC PANEL WITH GFR [...] YES Testing Performed at: [facility], [address] [place] [address], , Lay Out Carpenter: Edith Graves MD CL#[id number] us DENY [facility] Final Result [facility] [place] [address], documented in this encounter Visit Diagnoses Diagnosis Urgency of urination Abnormal results of liver function studies Nonspecific abnormal results of liver function study Hypothyroidism, unspecified Hyperlipidemia, unspecified documented in this encounter Care Teams Rubbish Collection Supervisor Relationship Specialty Start Date End Date Sydney Avery PA [address] [place] [id number] PCP - General 12/16/22 Sydney Avery PA [address] [place] [address] PCP - Backup PCP Family Medicine 06/11/23 documented as of this encounter
--- OUTSIDE RECORDS SUMMARY | 2025-04-13 16:41 | XMS_ITS | Encounter Summary ---
Author Organization [facility] Address [address] [place] [address] Care Team Providers Care Help Desk Manager Name Role Phone DENY Avery Monika Primary Care Provider DENY Avery Monika Unavailable [phone] Reason for Visit * Reason Comments E-prescribing Refill Request Encounter Details Date Type Department Care Team (Late st Contact Info) Description 05/15/2024 Refill [facility] [address] [place] [phone] Sydney Avery PA [address] [place], [place] [phone] E-prescribing Refill Request Social History Tobacco Use [...] hypercholesterolemia documented in this encounter Care Teams Help Desk Manager Relationship Specialty Start Date End Date Sydney Avery PA [address] [place] [address] PCP - General 12/16/22 Sydney Avery PA [address] [place] [address] PCP - Backup PCP Family Medicine 06/11/23 documented as of this encounter
--- OUTSIDE RECORDS SUMMARY | 2025-04-13 16:41 | XMS_ITS | Clinical Summary ---
Author Organization [facility] Address [address] [place] [address] Care Team Providers Care Coal Handler Name Role Phone Lashell, Nuvia Prieto APRN Primary Care Provider [phone] Tommy Handy MD Unavailable Allergies No known [...] 50+ (1 of 1 - PCV) 09/23/2017 RSV Vaccine 50 years and old er and Patients (1 - Risk 50-74 years 1-dose series) 09/23/2017 Zoster (Shingles) Vaccine (1 of 2) 09/23/2017 Influenza Vaccine 12/10/2024 COVID-19 Vaccine (2024-2 6 season) 2025 05/22/2021, 09/30/2020, 09/02/2020, Additional history exists Medical Devices Implanted Type Area Slide Fastener Chain Assembler Device Identifier Shelf Expiration Date Model / Serial / Lot 55 Mm Plate Medtronic # [id number] Implanted:Qty : 1 on 10/18/2015 by Se Floyd MD at [facility] Plate N/A: Spine Cervical [employer] [id number] / / Description:cervical Lordotic Sr Cortical Block [id number] Implanted:Qty : 1 on 10/18/2015 by Se Floyd MD at [facility] Spine N/A: Spine Cervical [employer] 07/25/2018 [id number] / [id number] / [id number] Lordotic Sr Cortical Block [id number] Implanted:Qty : 1 on 10/18/2015 by Se Floyd MD at [facility] Spine N/A: Spine Cervical [employer] 07/25/2018 [id number] / [id number] / [id number] Lordotic Sr Cortical Block [id number] Implanted:Qty : 1 on 10/18/2015 by Se Floyd MD at [facility] Spine N/A: Spine Cervical [employer] 06/21/2018 [id number] / [id number] / [id number] Graft Bone Grftn Dbm 1ml Putty Jar - [id number] Implanted:Qty : 1 on 10/18/2015 by Se Floyd MD at [facility] Tissue [employer] 03/29/2018 [id number] / [id number] / 3.5x15mm Vasd Screw Implanted:Qty : 1 on 10/18/2015 by Se Floyd MD at [facility] N/A: Spine Cervical [employer] [id number] / / Insurance [facility] Advance Directives * Full Code (Latest Code Status on File) Date Activated Date Inactivated Comments 10/18/2015 6:16 PM 10/20/2015 5:34 PM Care Teams Coal Handler Relationship Specialty Start Date End Date LashellNuvia miller APRN PCP - General 10/18/15 Tommy Handy MD [address] [place] [address] 07/20/12
--- OUTSIDE RECORDS SUMMARY | 2025-04-13 16:41 | XMS_ITS | Encounter Summary ---
Author Organization [facility] Address [address] [place], [place] [address] Care Team Providers Care Medical Superintendent Name Role Phone Tamela Dela Cruz APRN Primary Care Provider Riri ray Pcp, No Primary Care Provider Barbara Lucero APRN Primary Care Provider [phone] Tommy Handy MD Unavailable Encounter Details Date Type Department Care Team (Late st Contact Info) Description 09/27/2015 Scanned Document [address] [address] Provider, Generic Social History Tobacco [...] on filedocumented in this encounter Care Teams Medical Superintendent Relationship Specialty Start Date End Date Tamela Dela Cruz APRN PCP - General Internal Medicine 09/25/15 10/02/15 Pcp, No PCP - General General Medicine 10/04/15 10/17/15 Barbara Lobo APRN PCP - General 10/18/15 Tommy Handy MD [address] [place] [address] 07/20/12 documented as of this encounter
--- OUTSIDE RECORDS SUMMARY | 2025-04-13 16:41 | XMS_ITS | Encounter Summary ---
Author Organization [facility] Address [address] [place] [address] Care Team Providers Care Industrial Gas Fitter Name Role Phone Tommy Handy MD Primary Care Provider [phone] Tamela Dela Cruz APRN Primary Care Provider Riri ray Pcp, No Primary Care Provider UnavailBarbara Lopez APRN Primary Care Provider [phone] Tommy Handy MD Unavailable Encounter Details Date Type Department Care Team (Late st Contact Info) Description 08/23/2015 Scanned Document [address] [address] Provider, Generic Social History Tobacco [...] on filedocumented in this encounter Care Teams Industrial Gas Fitter Relationship Specialty Start Date End Date Tommy Handy MD [address] [place] [address] [address] [place] [address] PCP - General 07/20/12 09/24/15 Tamela Dela Cruz APRN [address] [address] PCP - General Internal Medicine 09/25/15 10/02/15 Pcp, No PCP - General General Medicine 10/04/15 10/17/15 Barbara Lobo APRN PCP - General 10/18/15 Tommy Handy MD [address] [address] 07/20/12 documented as of this encounter
--- OUTSIDE RECORDS SUMMARY | 2025-04-13 16:41 | XMS_ITS | Encounter Summary ---
Author Organization [facility] Address [address] [place] [address] Care Team Providers Care Medical Equipment Repair Technician Name Role Phone Pcp, Latoya Primary Care Provider Barbara Lucero APRN Primary Care Provider [phone] Tommy Handy MD Unavailable Encounter Details Date Type Department Care Team (Late st Contact Info) Description 10/12/2015 Scanned Document [facility] Neurosurgery [address] [place] [address] Se Floyd MD [address] [place] [address] [place] [id number] Social History Tobacco Use Types Packs/Day Years [...] filedocumented in this encounter Care Teams Medical Equipment Repair Technician Relationship Specialty Start Date End Date Pcp, Latoya PCP - General General Medicine 10/04/15 10/17/15 Barbara Lobo APRN PCP - General 10/18/15 Tommy Handy MD [address] [address] 07/20/12 documented as of this encounter
--- OUTSIDE RECORDS SUMMARY | 2025-04-13 16:41 | XMS_ITS | Clinical Summary ---
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 [place] [id number], * XRAY CHEST, 2 VIEWS, PA & LATERAL FC (04/09/2021 11:15 AM EST) Pathologist [facility] [place] IMAGING STUDY Exam: X-ray chest 2 views No infiltrates or pleural effusions. No failure or fluid overload. Operative change lower cervical spine. Thoracic spine appears intact. Heart size is normal. IMPRESSION: No acute findings Electronically signed by Ty Nelson MD [facility] PHCT CONVERSIONS Anatomical Region Laterality Modality CHEST Radiographic Mary ging 04/09/2021 11:1 5 AM EST Chidi Davis MD IMG XRAY NO CONTRAST ORDERABLE S Final Result * HEPATITIS PANEL, ACUTE W/REFLEX (06/05/2018 7:48 AM EST) Pathologist [facility] [place] HEPATITIS A IGM NON-REACT SHANIA NON-REACT SHANIA [...] 06/05/2018 7:39 PM EST Testing Performed at: [facility], [address] [place] [address], [place] [address], , Private Watchman: Mariann Talley MD CL#[id number] us [facility] Final Result PHCT CONVERSIONS * MAMMOGRAM SCREENING , BILATERAL FC (09/03/2017 9:28 AM EDT) BI-RADS CODE BI-RADS Category 2: Continue Routine Screening PHCT CONVERSIONS Anatomical Region Laterality Modality BREAST Bilateral Mammography 09/03/2017 9:28 AM EDT us Php Unknown Prov IMG MAMMO ORDERABLES Final Resu lt from Last 3 Months or Most Recently Relevant to Health Maintenance Care Teams Ladle Cleaner Relationship Specialty Start Date End Date Sydney Avery PA [address] [place] [address] PCP - General 12/16/22 Sydney Avery PA [address] [place] [address] PCP - Backup PCP Family Medicine 06/11/23
--- OUTSIDE RECORDS SUMMARY | 2025-04-13 16:41 | XMS_ITS | Encounter Summary ---
Author Organization [facility] Address [address] [place] [address] Care Team Providers Care Funeral Service Licensee Name Role Phone DENY Avery Monika Primary Care Provider [phone] DENY Avery Monika Unavailable [phone] Reason for Visit * Reason Comments E-prescribing Refill Request Encounter Details Date Type Department Care Team (Late st Contact Info) Description 11/13/2024 Refill [facility] [address] [place] [phone] Sydney Avery PA [address] [place], [place] [address] E-prescribing Refill Request Social History Tobacco Use [...] on filedocumented in this encounter Care Teams Funeral Service Licensee Relationship Specialty Start Date End Date Sydney Avery PA [address] [place] [address] PCP - General 12/16/22 Sydney Avery PA [address] [place], [place] [id number] PCP - Backup PCP Family Medicine 06/11/23 documented as of this encounter
== END 2025-04-13 14:21 | disposition home or self-care (01) ==
LOC: HO.HGI 13:55
PROVIDERS: PCP Nurse Practitioner Family; Visit Provider Nurse Practitioner Family
DX: R19.8 Other specified symptoms and signs involving the digestive system and abdomen (principal); R14.0 Abdominal distension (gaseous); K21.9 Gastro-esophageal reflux disease without esophagitis; R10.13 Epigastric pain
CPT/HCPCS: 99214